=== PATIENT | female | born 1965 | race Caucasian/White ===

== ENCOUNTER → 2020-05-05 11:28 | Outpatient (CLI) | payer MEDICAID, SELFPAY ==
--- NOTE | 2020-05-05 11:30 | BI_ITS ---
MAMMOGRAPHY - BILATERAL SCREENING REASON FOR EXAM: Female, 54 years old. Routine annual screening examination. PERTINENT HISTORY: Non-contributory. TECHNIQUE: Digital bilateral breast jose miguel (3D mammographic acquisition) in the CC and MLO projections. 2-D mediolateral oblique (MLO) and craniocaudad (CC) views of both breasts were obtained. CAD: Full Field Digital Mammography with Computer Added Detection was performed. COMPARISON: None. Baseline examination. FINDINGS: Breast Composition: There are scattered areas of fibroglandular density. There are no dominant masses or suspicious calcifications. Small benign-appearing bilateral axillary lymph nodes. Scattered bilateral macrocalcifications. No other significant abnormalities are identified. BI/SCREEN MAMM (CAD) W/JOSE MIGUEL BILAT IMPRESSION: Negative screening mammogram. Yearly followup mammogram recommended. (A) ASSESSMENT CATEGORY: BIRADS Category 2: Benign. A letter regarding these results will be sent to the patient by the facility within 30 days. Approximately 10% of breast cancers are not detected by mammography. A normal mammogram should not delay biopsy of a clinically suspicious abnormality. [id number] Electronically Signed: Cezar Pickett, at 13:24 EDT , Service support ,
--- NOTE | 2020-05-05 11:33 | BD_ITS ---
STUDY: DUAL ENERGY X-RAY ABSORPTIOMETRY / DXA REASON FOR EXAM: Female, 54 years old. 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 COMPARISON: None. FINDINGS: Lumbar Spine (L1-L4): g/cm2 (1.262) / T-score (0.8) / Z-score (1.4) Findings are suggestive of normal bone density with a low fracture risk. Left Femur Total: g/cm2 (1.258) / T-score (2.0) / Z-score (2.5) Left Femoral Neck: g/cm2 (1.229) / T-score (1.4) / Z-score (2.3) Right Femur Total: g/cm2 (1.228) / T-score (1.8) / Z-score (2.3) Right Femoral Neck: g/cm2 (1.243) / T-score (1.5) / Z-score (2.4) BD/Dexa Bone Density Study IMPRESSION: The patient is considered normal as outlined below according to World K[employer] Organization (WHO) criteria with a low fracture risk. Reference Information: The T-score is the number of standard deviations above or below the standard which is normal for young adults at their peak bone mineral density. The World Health Organization (WHO) interprets the T-scores as follows: Above -1 Normal bone density Between -1 and -2.5 Osteopenia Equal to / or below -2.5 Osteoporosis As a practical clinical guideline, osteopenia may be graded as follows: Mild -1 through -1.5 Moderate -1.6 through -2.0 Severe -2.1 through -2.4 The Z-score is the number of standard deviations above or below age-matched controls. A Z-score of less than -1.5 would be considered abnormal. References: 1. NIH Osteoporosis and Related Bone Diseases http://www.osteo.org 2. International Society for Clinical Densitometry http://www.iscd.org 3. National Osteoporosis Foundation http://www.nof.org Electronically Signed: Cezar Pickett, at 15:29 EDT , Service support ,
[2020-05-05 14:30] LABS: Absolute Lymphocyte Count 2.32 X10^3/uL (0.83-4.51); Absolute Neutrophil Count 3.8 X10^3/uL (2.0-7.7); Basophil# 0.05 X10^3/uL; Basophil% 0.7 % (0-1); Eosinophil# 0.22 X10^3/uL; Eosinophils% 3.2 % (0-5); Hemoglobin 13.7 g/dL (12.0-15.0); Lymphocyte # 2.32 X10^3/ul (4.0); Lymphocyte % 33.2 % (19-41); Mean Corp Hgb Conc 31.9 g/dL (32-36); Mean Corpuscular Hgb 27.3 pg (27.0-32.0); Mean Corpuscular Volume 85.8 fL (81-99); Mean Platelet Vol. 10.1 fl (6.2-12.0); Monocyte# 0.61 X10^3/uL; Monocyte% 8.7 % (0-10); NRBC Flagged by Analyzer 0 % (0-5); Neutrophil # 3.76 X10^3/uL (2.7-7.7); Neutrophil % 53.9 % (47-70); Platelet Count 277 K/mm3 (150-450); RBC Distribution Width CV 14.3 % (11.6-14.6); RBC Distribution Width SD 44.3 fl (35.1-43.9); Red Blood Count 5.01 M/mm3 (4.2-5.4)
[2020-05-05 14:52] LABS: Hemoglobin A1c 5.6 % (3.8-5.6)
[2020-05-05 14:57] LABS: ALB/GLOB Ratio 0.9 RATIO (0.9-2.4); AST(SGOT) 22 U/L (15-37); Alanine Aminotransfer ALT/SGPT 21 U/L (13-56); Albumin, Serum 3.5 g/dL (3.2-5.0); Alkaline Phosphatase 70 U/L (45-117); Anion Gap 4 (5-15); BUN 6 mg/dL (7-18); BUN/Creat Ratio 7.5 RATIO (10-20); Calcium,Total 9.4 mg/dL (8.5-10.1); Chloride 108 mmol/L (98-107); Cholesterol 153 mg/dL (200); EST Glomerular Filtration Rate 80 mL/min (>60); Est Glom Filt Rate - Afr Amer 96 mL/min (>60); Globulin 3.9 g/dL (2.2-4.2); Glucose 84 mg/dL (74-106); High Density Lipoprotein 51 mg/dL; Potassium 3.9 mmol/L (3.5-5.1); Protein, Total 7.4 g/dL (6.4-8.2); Sodium Level 142 mmol/L (136-145); Thyroid Stim Hormone (TSH) 0.34 uIU/mL (0.358-3.74); Triglycerides 89 mg/dL; Very Low Density Lipoprotein 18 mg/dL (5-40)
[2020-05-11 16:44] LABS: HPV APTIMA, High Risk Negative (Negative)
== END ==
PROVIDERS: PCP Nurse Practitioner Primary Care; Referring Provider Obstetrics & Gynecology; Visit Provider Obstetrics & Gynecology
DX: Z13.820 Encounter for screening for osteoporosis (principal); Z12.31 Encounter for screening mammogram for malignant neoplasm of breast; Z12.4 Encounter for screening for malignant neoplasm of cervix; Z13.220 Encounter for screening for lipoid disorders; Z13.29 Encounter for screening for other suspected endocrine disorder; Z78.0 Asymptomatic menopausal state; R30.0 Dysuria
CPT/HCPCS: 36415; 77063; 77067; 77080; 80053; 80061; 83036; 84443; 85025; 87086; 87624; 88175; G0145

== ENCOUNTER 2021-03-09 13:35 | Emergency (ER) | payer MEDICAID, SELFPAY ==
[2020-05-05 13:07] VITALS: BMI 37.6
[2021-03-09] VITALS (7 sets, daily range): BP systolic 120–139; BP diastolic 83–99; PULSE 73–93; RESP 16–18; TEMP 36.6–36.7; O2SAT 98–99; BMI 39.6
--- NOTE | 2021-03-09 13:57 | EKG12_ITS ---
Test Reason : Blood Pressure : / mmHG Vent. Rate : 072 BPM Atrial Rate : 072 BPM P-R Int : 156 ms QRS Dur : 082 ms QT Int : 376 ms P-R-T Axes : 054 -06 029 degrees QTc Int : 411 ms Normal sinus rhythm Normal ECG Confirmed by LATRICE GUO, CHANDANA ([id number]), advertising editor SAMAN RAMESH ([id number]) on 03/14/2021 9:09:59 AM Referred By: SHERI Confirmed By:MARIA DEL CARMEN POLLARD MD
--- NOTE | 2021-03-09 14:13 | EX.ED.DYSGE1 ---
HPI History of Present Illness Chief Complaint: Shortness of Breath Detail of Chief Complaint: Syncope. Informant: patient and spouse/S.O. Onset/Context/Timing Onset: Today and Yesterday Context: Sudden Onset Timing: Intermittent Current Severity: Gone Maximum Severity: Mild Narrative Narrative: Middle-aged Christian female no significant past medical history. 4 prior C-sections. Denies any recent illness. She is on no medications. Patient states yesterday morning about half an hour after getting up she had a syncopal episode lasted briefly. No injury when she fell to the kitchen floor. She was drinking coffee at the time. She felt dizzy just prior to the event. Denies any headache or chest pain. States she has had some mild shortness of breath recently. No history of DVT or PE. No recent travel surgery or immobilization. She has had similar episodes in the past. Is never had it worked up. Cellulitis today she had episode that was similar but it was near syncope and she did not actually go unconscious. 42 she was sitting in a chair at that time. She had some mild loose stools last week but otherwise has not had any recent illness. Prior similar symptoms: Yes Recent Illness/Hospitalization: No PFSH PFSH no medical history Home Medications NK 05/05/20 [History Last Taken Unknown] Allergy/AdvReac Type Severity Reaction Status Date / Time No Known Allergies Allergy Verified 05/05/20 13:04 Family History Father Heart disease Mother Heart disease Surgical History S/P Social History Smoking Status: Never smoker alcohol intake: never substance use type: does not use caffeine: Yes what type of physical activity do you participate in: walking, aerobics and other details: stepper frequency: 5-6 times per week do you feel safe at home: Yes additional social history: - [place] ROS ROS ED ROS Narrative Denies recent illness except for mild loose stools last week. Review of Systems ROS Unobtainable: Denies due to encephalopathy Constitutional Constitutional ED: Denies chills or fever(s) Eyes Eyes: Denies change in vision ENT ENT ED: Denies ear pain or sore throat Cardiovascular Cardiovascular: Denies chest pain or palpitations Respiratory/Chest Respiratory/Chest: Reports dyspnea; Denies cough Gastrointestinal Gastrointestinal: Reports diarrhea; Denies abdominal pain, nausea or vomiting Genitourinary Genitourinary ED: Denies dysuria Musculoskeletal Musculoskeletal: Denies myalgias Integumentary Denies rash Neurologic Neurologic: Denies headache(s) Psychiatric Psychiatric: Denies depression Endocrine Endocrinology: Denies polyuria Allergic/Immunologic Allergic/Immunologic ED: Denies urticaria EXAM Physical Exam Narrative Exam Narrative: Middle-aged female no acute distress. Vital signs stable afebrile. Initial blood pressure 128/95. Heart rate 78. Pulse ox 90% on room air no signs hypoxia. H EENT exam unremarkable. Moist mucous membranes. No trauma. Neck nontender. Lungs clear to auscultation bilaterally. Heart regular rate and rhythm no murmur rate about 80. Chest were nontender. Abdomen soft nontender. Normal bowel sounds no peritoneal signs. Patient moving all 4 extremities. Neurovascularly intact. Nontender. No edema or cords. Back nontender. Neurologically she is awake and alert with no focal motor deficits. Fingertip to nose and [id number] within normal limits. NIH score 0. Const Vital Signs: 03/09/21 13:36 03/09/21 13:42 03/09/21 14:15 Temperature 97.9 F 97.9 F Temperature Source Oral Oral Pulse Rate 78 78 Pulse Rate [Lying] Pulse Rate [Sitting] Pulse Rate [Standing] Respiratory Rate 16 16 Respiratory Effort Respiratory Pattern Blood Pressure 128/95 H 128/95 H Blood Pressure [Lying] Blood Pressure [Sitting] Blood Pressure [Standing] Blood Pressure Mean 106 106 Blood Pressure Mean [Lying] Blood Pressure Mean [Sitting] Blood Pressure Mean [Standing] Pulse Ox 98 98 Oxygen Delivery Method Room Air Room Air Room Air 03/09/21 14:17 03/09/21 14:35 03/09/21 14:42 Temperature 97.9 F Temperature Source Oral Pulse Rate 73 73 Pulse Rate [Lying] Pulse Rate [Sitting] Pulse Rate [Standing] Respiratory Rate 18 18 Respiratory Effort Normal Respiratory Pattern Normal Blood Pressure 126/90 H 126/90 H Blood Pressure [Lying] Blood Pressure [Sitting] Blood Pressure [Standing] Blood Pressure Mean 102 102 Blood Pressure Mean [Lying] Blood Pressure Mean [Sitting] Blood Pressure Mean [Standing] Pulse Ox 99 99 Oxygen Delivery Method Room Air Room Air 03/09/21 15:27 03/09/21 15:33 Temperature 98.0 F Temperature Source Temporal Pulse Rate 73 Pulse Rate [Lying] 73 Pulse Rate [Sitting] 79 Pulse Rate [Standing] 93 Respiratory Rate 16 Respiratory Effort Respiratory Pattern Blood Pressure 134/99 H Blood Pressure [Lying] 129/92 H Blood Pressure [Sitting] 139/93 H Blood Pressure [Standing] 134/99 H Blood Pressure Mean 110 Blood Pressure Mean [Lying] 104 Blood Pressure Mean [Sitting] 108 Blood Pressure Mean [Standing] 110 Pulse Ox 99 Oxygen Delivery Method Room Air Positive well nourished and well developed; Negative for cachectic, contractures or unkempt General Appearance ED: well developed and NAD; Negative for unkempt, cachectic, contractures, cyanotic or diaphoretic Nutritional Appearance: Negative for cachectic HEENT Reports moist mucous membranes Negative for trauma or tenderness Eyes PERRL and EOMs intact bilaterally Neck no lymphadenopathy, supple and no JVD General: Negative for tenderness Chest Wall inspection of chest normal and palpation of chest normal Resp normal respiratory effort and clear to auscultation bilaterally Cardio regular rate, regular rhythm, S1 normal heart sound, S2 normal heart sound and no murmurs GI normal to inspection, nondistended, normoactive bowel sounds, non-tender, non-distended and no masses Inspection: Negative for abdominal distention Auscultation: normoactive bowel sounds Palpation: soft; Negative for tender, guarding or rebound tenderness present Back/Spine no CVA tenderness General Back: Negative for CVA tenderness Cervical Spine: Negative for cervical spine tenderness Thoracic Spine / Upper Back: Negative for thoracic spinal tenderness or paraspinal muscle tenderness Extremity normal to inspection General Extremety ED: Negative for edema or tenderness General Extremity: Negative for edema Neuro oriented x3 and CN's II-XII intact bilaterally Sensorium / Orientation: alert; Negative for orientation impaired, lethargic or stuporous Motor Exam: strength 5/5 throughout Psych mental status grossly normal Appearance: Negative for unkempt Skin no rashes or lesions noted and no wounds MDM MDM MDM Narrative Medical decision making narrative: Middle-aged female with a syncopal event yesterday that was brief. And a near syncopal event today. Exam normal. Vital signs normal. She has no cardiac history. Patient will undergo a cardiac work-up with orthostatic vital signs. Several repeat exams most recent one at 4:30 PM patient doing well. Exam unchanged.Several repeat exams most recent one at 4:30 PM patient doing well. Exam unchanged. Discussed all test results with patient and . They did not wish to be admitted to the hospital for observation for other causes of syncope. I think that is reasonable in light the patient's been on the playground monitor here for several hours and we have seen no significant rhythm issues. Lab Data Attestation: I reviewed the patient's lab results. Lab results narrative: Prescription for Zofran CBC unremarkable. White count of 6. Hemoglobin 14. Electrolytes unremarkable gap of 5. Creatinine 0.7. High-sensitivity troponin normal. Chest x-ray unremarkable. Covid negative.Orthostatic vital signs negative. Labs: Laboratory Results - last 24 hr 03/09/21 03/09/21 14:20 14:20 WBC 6.3 RBC 5.31 Hgb 14.6 Hct 45.5 MCV 85.7 MCH 27.5 MCHC 32.1 RDW Std Deviation 41.1 RDW Coeff of Gunner 13.2 Plt Count 258 MPV 9.3 Immature Gran % (Auto) 0.500 Neut % (Auto) 54.9 Lymph % (Auto) 27.4 [place] % (Auto) 14.6 H Eos % (Auto) 1.8 Baso % (Auto) 0.8 Absolute Neuts (auto) 3.5 Absolute Lymphs (auto) 1.72 Nucleated RBC % 0 Sodium 139 Potassium 4.1 Chloride 104 Carbon Dioxide 30.0 Anion Gap 5 BUN 6 L Creatinine 0.75 Estim Creat Clear Calc 121.75 Est GFR (MDRD) Af Amer 104 Est GFR (MDRD) Non-Af 86 BUN/Creatinine Ratio 8.0 L Glucose 83 Calcium 9.0 Troponin I High Sens < 3.0 L Radiography Chest X-Ray - ED: 1 View, Read by ED Physician, Heart, Lungs, Mediastinum, Bony Structures and No Acute Disease Diagnostic Testing: Radiology Impression Chest X-Ray 03/09/21 15:05 IMPRESSION: Normal x-ray examination of the chest. Electronically Signed: Cezar Pickett MD at 15:22 EDT , Service support , Rhythm Strip Rhythm Strip: Sinus Rhythm Rate: 72 Ectopy: None EKG Initial EKG: Attestation: I personally reviewed and interpreted this EKG as follows: Interpretation: Sinus Rhythm and No Acute Injury Pattern Comments: Normal sinus rhythm rate of 72 no acute signs of [place] or ischemia. Prior EKG tracings: available for review Prior: Unchanged Discharge Plan Triage Chief Complaint: Shortness of Breath ED Provider: Nicholas Reed Dx/Rx/DC Orders Clinical Impression: Syncope Instructions: Causes of Syncope Prescriptions: No Action NK RF: 0 Primary Care Provider: Ruby Justice NP Referrals: Ruby Justice NP, [employer] [Primary Care Provider] - As soon as possible Activity Restrictions/Additional Instructions: Plenty of fluids and rest. Follow-up with primary care physician. Your chest x-ray, EKG, Covid test, blood counts and electrolytes were all unremarkable today. Disposition Disposition: Home, Self Care
[2021-03-09 14:37] LABS: Absolute Lymphocyte Count 1.72 X10^3/uL (0.83-4.51); Absolute Neutrophil Count 3.5 X10^3/uL (2.0-7.7); Basophil# 0.05 X10^3/uL; Basophil% 0.8 % (0-1); Eosinophil# 0.11 X10^3/uL; Eosinophils% 1.8 % (0-5); Hematocrit 45.5 % (37-47); Hemoglobin 14.6 g/dL (12.0-15.0); Lymphocyte # 1.72 X10^3/ul (0.83-4.51); Lymphocyte % 27.4 % (19-41); Mean Corp Hgb Conc 32.1 g/dL (32-36); Mean Corpuscular Hgb 27.5 pg (27.0-32.0); Mean Corpuscular Volume 85.7 fL (81-99); Mean Platelet Vol. 9.3 fl (6.2-12.0); Monocyte# 0.92 X10^3/uL; Monocyte% 14.6 % (0-10); NRBC Flagged by Analyzer 0 % (0-5); Neutrophil # 3.45 X10^3/uL (2.7-7.7); Neutrophil % 54.9 % (47-70); Platelet Count 258 K/mm3 (150-450); RBC Distribution Width CV 13.2 % (11.6-14.6); RBC Distribution Width SD 41.1 fl (35.1-43.9); Red Blood Count 5.31 M/mm3 (4.2-5.4); White Blood Count 6.3 K/mm3 (4.4-11.0)
[2021-03-09 14:49] LABS: Anion Gap 5 (5-15); BUN 6 mg/dL (7-18); Chloride 104 mmol/L (98-107); Creatinine, Serum 0.75 mg/dL (0.55-1.02); EST Glomerular Filtration Rate 86 mL/min (>60); Est Glom Filt Rate - Afr Amer 104 mL/min (>60); Estimated Creatinine Clearance 121.75 ml/min; Glucose 83 mg/dL (74-106); Potassium 4.1 mmol/L (3.5-5.1); Sodium Level 139 mmol/L (136-145); Troponin-I HS < 3.0 pg/mL (3.0-53.7)
--- NOTE | 2021-03-09 15:05 | RAD_ITS ---
STUDY: X-RAY CHEST REASON FOR EXAM: Female, 55 years old. Shortness of breath and chills. Cough. TECHNIQUE: Single AP portable view of the chest. COMPARISON: None. FINDINGS: EKG electrodes are seen. The lungs are clear and expanded. There is no demonstrated pleural abnormality. Normal size heart. Normal mediastinum and jourdan. Normal visualized pulmonary arteries. Normal visualized aortic arch and descending thoracic aorta. There are diffuse degenerative changes of the visualized thoracic spine. Normal visualized ribs, clavicles, and shoulders. There is no demonstrated abnormality of the visualized soft tissue structures of the upper abdomen. RAD/Chest 1 View (Portable) IMPRESSION: Normal x-ray examination of the chest. Electronically Signed: Cezar Pickett MD at 15:22 EDT , Service support ,
== END 2021-03-09 16:57 | disposition home or self-care (01) ==
PROVIDERS: Emergency Provider Emergency Medicine; PCP Nurse Practitioner Primary Care
DX: R55 Syncope and collapse (principal)
CPT/HCPCS: 71045; 80048; 84484; 85025; 87426; 93005; 99285; A4216

== ENCOUNTER 2021-03-10 17:47 | Emergency (ER) | payer MEDICAID, SELFPAY ==
[2021-03-09 13:36] VITALS: BMI 39.6
[2021-03-10 17:48] VITALS: BP 125/80; PULSE 85; PULSE 88; RESP 16; TEMP 36.9; O2SAT 96; O2SAT 98; BMI 39.2
[2021-03-10 19:17] LABS: Bacteria 0 SEEN /hpf (None Seen); Mucous, Urine 0 SEEN /hpf (<or=2+); Red Blood Cells-Urine 0 SEEN /hpf (0-5)
[2021-03-10 19:22] LABS: Color, Urine Straw (Yellow); Glucose, Dipstick Normal (Normal); Ketone-Dipstick Negative (Negative); Leukocyte Esterase-Dipstick 25 /ul (Negative); Nitrite-Dipstick Negative (Negative); Occult Blood-Urine Negative /ul (Negative); Protein-Dipstick Negative (Negative); Urine Bilirubin Dipstick Negative (Negative); Urine Clarity Clear (Clear); Urine Urobilinogen Normal (Normal)
[2021-03-10 19:38] LABS: Squamous Epithelial Cells - UA 0-5 SEEN /hpf (5-10); White Blood Cells 0-5 SEEN /hpf (0-5)
[2021-03-10 19:49] VITALS: PULSE 82; RESP 16; O2SAT 98
[2021-03-10 19:59] VITALS: BP 110/82; PULSE 77; RESP 16; O2SAT 96
[2021-03-10 20:00] LABS: Absolute Lymphocyte Count 2.11 X10^3/uL (0.83-4.51); Absolute Neutrophil Count 2.1 X10^3/uL (2.0-7.7); Basophil# 0.04 X10^3/uL; Basophil% 0.8 % (0-1); Eosinophil# 0.26 X10^3/uL; Eosinophils% 4.9 % (0-5); Hematocrit 43.6 % (37-47); Lymphocyte # 2.11 X10^3/ul (0.83-4.51); Lymphocyte % 39.7 % (19-41); Mean Corp Hgb Conc 32.1 g/dL (32-36); Mean Corpuscular Hgb 27.5 pg (27.0-32.0); Mean Corpuscular Volume 85.7 fL (81-99); Mean Platelet Vol. 9.4 fl (6.2-12.0); Monocyte# 0.81 X10^3/uL; Monocyte% 15.2 % (0-10); NRBC Flagged by Analyzer 0 % (0-5); Neutrophil # 2.09 X10^3/uL (2.7-7.7); Neutrophil % 39.2 % (47-70); Platelet Count 233 K/mm3 (150-450); RBC Distribution Width SD 40.9 fl (35.1-43.9); Red Blood Count 5.09 M/mm3 (4.2-5.4); White Blood Count 5.3 K/mm3 (4.4-11.0)
[2021-03-10 20:13] LABS: D-Dimer Quantitative (DVT/PE) 0.62 FEU/ug/m (0.27-0.49)
--- NOTE | 2021-03-10 20:23 | CT_ITS ---
HISTORY: Trauma, syncope, head injury TECHNIQUE: Multiple axial images were obtained of the brain without intravenous contrast. A radiation dose optimization technique was used for this scan. IV Contrast dosage and agent: None. COMPARISON: None FINDINGS: # of images incl. paperwork: [id number] PARANASAL SINUSES AND MASTOID AIR CELLS: Clear. INTRACRANIAL HEMORRHAGE: None. BRAIN PARENCHYMA: No CT evidence of stroke. No intracranial masses. There is preservation of the guzman/white matter interface. Posterior fossa structures are unremarkable. CSF SPACES: Appropriate for age. There is no hydrocephalus. MASS EFFECT: None. CALVARIUM: Intact. CT/Brain/Head without Contrast IMPRESSION: No acute intracranial findings. Individualized dose optimization techniques were used for this CT. at 2139 Reported and signed by: Kin Torres MD Electronically Signed: Kin Torres MD at 21:38 EDT Tel , Service support ,
[2021-03-10 20:29] LABS: ALB/GLOB Ratio 0.8 RATIO (0.9-2.4); AST(SGOT) 21 U/L (15-37); Alanine Aminotransfer ALT/SGPT 22 U/L (13-56); Albumin, Serum 3.5 g/dL (3.2-5.0); Alkaline Phosphatase 78 U/L (45-117); Anion Gap 6 (5-15); BUN 8 mg/dL (7-18); BUN/Creat Ratio 9.8 RATIO (10-20); CPK Total, Creatine Kinase 201 U/L (26-192); Chloride 103 mmol/L (98-107); Creatinine, Serum 0.82 mg/dL (0.55-1.02); EST Glomerular Filtration Rate 77 mL/min (>60); Est Glom Filt Rate - Afr Amer 94 mL/min (>60); Estimated Creatinine Clearance 110.22 ml/min; Globulin 4.5 g/dL (2.2-4.2); Glucose 84 mg/dL (74-106); Potassium 3.8 mmol/L (3.5-5.1); Sodium Level 139 mmol/L (136-145); Troponin-I HS 12.1 pg/mL (3.0-53.7)
--- NOTE | 2021-03-10 21:00 | CT_ITS ---
HISTORY: syncope, elevated dimer EXAMINATION: CTA Chest WO/W Contrast Injection TECHNIQUE: Helically acquired images were obtained of the chest following IV contrast as per pulmonary angiogram protocol with 3D reconstructions. A radiation dose optimization technique was used for this scan. IV Contrast dosage and agent: 100mL [id number] COMPARISON: None FINDINGS: LUNGS, PLEURA AND LARGE AIRWAYS: Left lower lobe linear focus of atelectasis, fibrosis and/or consolidation. No mass or pleural effusion. No pneumothorax. THYROID: 2.7 cm nodule left lobe. PULMONARY ARTERIES: Normal in caliber. No pulmonary embolism. AORTA AND GREAT VESSELS: No aneurysm or dissection. HEART AND PERICARDIUM: Heart size is normal. No pericardial effusion. No signs of right heart strain. MEDIASTINUM AND MERLY: No mediastinal or hilar adenopathy. Esophagus is unremarkable. No hiatal hernia. UPPER ABDOMEN: No acute pathology. BONES: No acute or aggressive abnormality. CT/CTA Chest W/WO Contrast IMPRESSION: Negative CTA Chest. Left lower lobe linear focus of possible consolidation versus atelectasis and/or fibrosis. Recommend short-term follow-up for complete resolution. 7 cm nodule left lobe thyroid. Recommend routine thyroid ultrasound if not previously evaluated. Individualized dose optimization techniques were used for this CT. at 2150 Reported and signed by: Kin Torres MD Electronically Signed: Kin Torres MD at 21:49 EDT Tel , Service support ,
[2021-03-10] MEDS: 0.9% Normal Saline 1,000 ML 999 ML IV (21:08)
[2021-03-10 21:11] VITALS: PULSE 78; RESP 16; O2SAT 98
--- NOTE | 2021-03-10 22:07 | EDS_ITS ---
HPI History of Present Illness Chief Complaint: Syncope Informant: patient Narrative Narrative: Patient is a 55-year-old female who denies any significant past medical history present with recurrent episodes of syncope. Patient states 2 days ago she painted and yesterday felt like she was going to pass out but she sat down fairly quickly. This morning she had another syncopal episode. Patient states she bumped her chin on the counter and hit the back of her head. They called her PCP who recommend she come in to have a head CT. Patient was evaluated for the syncope 2 days ago and had a largely negative work-up. notes that her left eye seems to be drooping a little bit intermittently but not currently. Does not report any speech changes. Patient states she feels weak all over and has some myalgias. This was going on for the past few days. She notes that she is been feeling lightheaded and also gets a pressure in her head. She has an associated cough that is nonproductive. No chest pain. No nausea or vomiting. No change in her bowel habits. No fever or chills. Patient had a negative Covid antigen test yesterday. She is not had her Covid vaccine yet. No sick contacts. Patient is not on any medications. No other complaints or concerns at this time. PFSH [facility] Home Medications doxycycline hyclate 100 mg PO BID #14 cap 03/10/21 [Rx Last Taken Unknown] Allergy/AdvReac Type Severity Reaction Status Date / Time No Known Allergies Allergy Verified 05/05/20 13:04 Family History Father Heart disease Mother Heart disease Surgical History S/P Social History Smoking Status: Never smoker alcohol intake: never substance use type: does not use caffeine: Yes what type of physical activity do you participate in: walking, aerobics and other details: stepper frequency: 5-6 times per week do you feel safe at home: Yes additional social history: - Landon WILSON ROS ED Constitutional Constitutional ED: Reports other Details: Generalized malaise/weakness ; Denies chills or fever(s) Eyes Eyes: Denies blurry vision or change in vision ENT ENT ED: Denies ear pain or sore throat Cardiovascular Cardiovascular: Denies chest pain or palpitations Respiratory/Chest Respiratory/Chest: Reports cough; Denies dyspnea, dyspnea on exertion or sputum Gastrointestinal Gastrointestinal: Denies abdominal pain, diarrhea or vomiting Genitourinary Genitourinary ED: Reports urinary frequency; Denies dysuria or hematuria Musculoskeletal Musculoskeletal: Reports myalgias; Denies arthralgias, back pain or neck pain Integumentary Denies rash Neurologic Neurologic: Reports headache(s) and weakness; Denies paresthesias Psychiatric Psychiatric: Denies anxiety or depression EXAM Physical Exam Const Vital Signs: 03/10/21 17:48 03/10/21 17:59 03/10/21 19:49 Temperature 98.4 F Temperature Source Temporal Pulse Rate 85 82 Respiratory Rate 16 16 Respiratory Effort Normal Respiratory Pattern Normal Blood Pressure 125/80 H Blood Pressure Mean 95 Pulse Ox 98 98 Oxygen Delivery Method Room Air Room Air 03/10/21 19:59 03/10/21 21:11 Temperature Temperature Source Pulse Rate 77 78 Respiratory Rate 16 16 Respiratory Effort Respiratory Pattern Blood Pressure 110/82 H Blood Pressure Mean 91 Pulse Ox 96 98 Oxygen Delivery Method Room Air Room Air Positive well nourished and well developed General Appearance ED: well developed HEENT Reports TM's clear and moist mucous membranes Negative for trauma Tympanic Membrane ED: Yes TM's clear Eyes PERRL and EOMs intact bilaterally Neck no lymphadenopathy, supple and no JVD Chest Wall inspection of chest normal Resp normal respiratory effort and clear to auscultation bilaterally Cardio regular rate, regular rhythm and no murmurs GI normal to inspection, nondistended, normoactive bowel sounds and non-tender Extremity normal to inspection General Extremety ED: Negative for edema or tenderness General Extremity: Negative for edema Neuro oriented x3, CN's II-XII intact bilaterally and no sensory deficits noted Sensorium / Orientation: alert Motor Exam: strength 5/5 throughout Psych mental status grossly normal Skin no rashes or lesions noted MDM MDM MDM Narrative Medical decision making narrative: Patient evaluated for recurrent episode of syncope. She appears nontoxic in no acute distress. Her vital signs are normal. Patient normal orthostatics yesterday and a normal work-up yesterday. CBC is normal. No leukocytosis. Patient does have an elevated D-dimer of 0.62. CTA is obtained. CT head without contrast is also obtained. Urinalysis is not consistent with infection. CMP and high sensitive troponin are grossly unremarkable. Patient has a mild elevation of her CPK at 201. Patient is given a liter of IV fluid. CTA of the chest does not show any PE but does show thyroid nodule as well as a questionable infiltrate versus fibrosis versus atelectasis of the left lung. Given that patient is been feeling unwell for the past 2 days and has a cough she will be treated empirically. Patient is ordered to 48-hour Holter monitor she continues have episodes of syncope. I am not sure if this pneumonia adequately explains it. She does not appear to have any cardiac arrhythmia while in the emergency room. Patient be discharged home with outpatient follow-up. Patient and are agreeable with this plan of care. Patient is given first dose of doxycycline in the emergency room. Lab Data Labs: Laboratory Results - last 24 hr 03/10/21 03/10/21 03/10/21 18:45 19:45 19:45 WBC 5.3 RBC 5.09 Hgb 14.0 Hct 43.6 MCV 85.7 MCH 27.5 MCHC 32.1 RDW Std Deviation 40.9 RDW Coeff of Gunner 13.0 Plt Count 233 MPV 9.4 Immature Gran % (Auto) 0.200 Neut % (Auto) 39.2 L Lymph % (Auto) 39.7 Josephine % (Auto) 15.2 H Eos % (Auto) 4.9 Baso % (Auto) 0.8 Absolute Neuts (auto) 2.1 Absolute Lymphs (auto) 2.11 Nucleated RBC % 0 D-Dimer Quant (PE/DVT) 0.62 H* Sodium Potassium Chloride Carbon Dioxide Anion Gap BUN Creatinine Estim Creat Clear Calc Est GFR (MDRD) Af Amer Est GFR (MDRD) Non-Af BUN/Creatinine Ratio Glucose Calcium Total Bilirubin AST ALT Alkaline Phosphatase Total Creatine Kinase Troponin I High Sens Total Protein Albumin Globulin Albumin/Globulin Ratio Urine Color Straw Urine Clarity Clear Urine pH 7.0 Ur Specific [place] 1.010 Urine Protein Negative Urine Glucose (UA) Normal Urine Ketones Negative Urine Occult Blood Negative Urine Nitrite Negative Urine Bilirubin Negative Urine Urobilinogen Normal Ur Leukocyte Esterase 25 H Urine RBC 0 SEEN Urine WBC 0-5 SEEN Ur Squamous Epith Cells 0-5 SEEN Urine Bacteria 0 SEEN Urine Mucus 0 SEEN 03/10/21 19:45 WBC RBC Hgb Hct MCV MCH MCHC RDW Std Deviation RDW Coeff of Gunner Plt Count MPV Immature Gran % (Auto) Neut % (Auto) Lymph % (Auto) Josephine % (Auto) Eos % (Auto) Baso % (Auto) Absolute Neuts (auto) Absolute Lymphs (auto) Nucleated RBC % D-Dimer Quant (PE/DVT) Sodium 139 Potassium 3.8 Chloride 103 Carbon Dioxide 30.0 Anion Gap 6 BUN 8 Creatinine 0.82 Estim Creat Clear Calc 110.22 Est GFR (MDRD) Af Amer 94 Est GFR (MDRD) Non-Af 77 BUN/Creatinine Ratio 9.8 L Glucose 84 Calcium 9.0 Total Bilirubin 0.50 AST 21 ALT 22 Alkaline Phosphatase 78 Total Creatine Kinase 201 H Troponin I High Sens 12.1 Total Protein 8.0 Albumin 3.5 Globulin 4.5 H Albumin/Globulin Ratio 0.8 L Urine Color Urine Clarity Urine pH Ur Specific [place] Urine Protein Urine Glucose (UA) Urine Ketones Urine Occult Blood Urine Nitrite Urine Bilirubin Urine Urobilinogen Ur Leukocyte Esterase Urine RBC Urine WBC Ur Squamous Epith Cells Urine Bacteria Urine Mucus Radiography Chest X-Ray - ED: 1 View, Read by ED Physician, Read by Radiologist, Normal and No Acute Disease Diagnostic Testing: Radiology Impression Brain CT 03/10/21 20:23 IMPRESSION: No acute intracranial findings. Individualized dose optimization techniques were used for this CT. at 2130 Reported and signed by: Kin Torres MD Electronically Signed: Kin Torres MD at 21:38 EDT Tel , Service support , Chest CTA 03/10/21 21:00 IMPRESSION: Negative CTA Chest. Left lower lobe linear focus of possible consolidation versus atelectasis and/or fibrosis. Recommend short-term follow-up for complete resolution. 7 cm nodule left lobe thyroid. Recommend routine thyroid ultrasound if not previously evaluated. Individualized dose optimization techniques were used for this CT. at 2150 Reported and signed by: Kin Torres MD Electronically Signed: Kin Torres MD at 21:49 EDT Tel , Service support , Discharge Plan Triage Chief Complaint: Syncope ED Provider: Olive Britton Dx/Rx/DC Orders Clinical Impression: Syncope, Pneumonia involving left lung, Closed head injury Instructions: ED Head Injury (Adult), ED Holter Monitor, ED Pneumonia (Adult), ED Fainting, Uncertain Cause Prescriptions: New doxycycline hyclate 100 mg capsule 100 mg PO BID Qty: 14 RF: 0 Primary Care Provider: Thania Castrejon Referrals: Thania Castrejon, [employer] [Primary Care Provider] - Disposition Disposition: Home, Self Care
[2021-03-10] MEDS: Doxycycline 100 MG CAPSULE PO (22:24)
== END 2021-03-10 23:10 | disposition home or self-care (01) ==
PROVIDERS: Emergency Provider Emergency Medicine; PCP Nurse Practitioner Family
DX: R55 Syncope and collapse (principal); J18.9 Pneumonia, unspecified organism; S09.90XA Unspecified injury of head, initial encounter; X58.XXXA Exposure to other specified factors, initial encounter; Y93.89 Activity, other specified; Y92.9 Unspecified place or not applicable; Y99.9 Unspecified external cause status
CPT/HCPCS: 70450; 71275; 80053; 81001; 82550; 84484; 85025; 85379; 96360; J7030; Q9967; A4216

== ENCOUNTER → 2021-03-10 22:47 | Outpatient (CLI) | payer MEDICAID, SELFPAY ==
[2021-03-10 17:48] VITALS: BMI 39.2
== END ==
PROVIDERS: PCP Nurse Practitioner Family; Visit Provider Emergency Medicine
DX: R55 Syncope and collapse (principal); J18.9 Pneumonia, unspecified organism; S09.90XA Unspecified injury of head, initial encounter; X58.XXXA Exposure to other specified factors, initial encounter; Y93.89 Activity, other specified; Y92.9 Unspecified place or not applicable; Y99.9 Unspecified external cause status
CPT/HCPCS: 70450; 71275; 80053; 81001; 82550; 84484; 85025; 85379; 93225; 93226; 96360; 99283; J7030; Q9967; A4216

== ENCOUNTER 2021-03-18 19:23 | Emergency (ER) | payer MEDICAID, SELFPAY ==
[2021-03-18 19:24] VITALS: BP 118/90; PULSE 78; RESP 13; TEMP 36.8; O2SAT 96; BMI 44.3
--- NOTE | 2021-03-18 19:33 | EKG12_ITS ---
Test Reason : DYSRHYTHMIA Blood Pressure : / mmHG Vent. Rate : 075 BPM Atrial Rate : 075 BPM P-R Int : 176 ms QRS Dur : 082 ms QT Int : 360 ms P-R-T Axes : 052 -03 023 degrees QTc Int : 402 ms Normal sinus rhythm Normal ECG Confirmed by KHUSHBU GUO, AYDEN ([id number]), graphic editor SAMAN RAMESH ([id number]) on 03/23/2021 9:22:10 AM Referred By: ELVER Confirmed By:AYDEN RÍOS MD
--- NOTE | 2021-03-18 19:40 | EDS_ITS ---
HPI History of Present Illness Chief Complaint: Syncope Informant: patient and spouse/S.O. Onset/Context/Timing Onset: Today Current Severity: Gone Maximum Severity: Moderate Narrative Narrative: 55-year-old female who is been worked up and being worked up for syncopal episodes. 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 She has been admitted at [facility] recently. I do not think they have a specific diagnosis yet for syncopal events. She had a syncopal event today at home. states she lost consciousness for 1 to 2 minutes. Prior similar symptoms: Yes Recent Illness/Hospitalization: Yes PFSH PFSH Home Medications NK 03/18/21 [History Last Taken Unknown] Allergy/AdvReac Type Severity Reaction Status Date / Time No Known Allergies Allergy Verified 05/05/20 13:04 Family History Father Heart disease Mother Heart disease Surgical History S/P Social History Smoking Status: Never smoker alcohol intake: never substance use type: does not use caffeine: Yes what type of physical activity do you participate in: walking, aerobics and other details: stepper frequency: 5-6 times per week do you feel safe at home: Yes additional social history: - Landon KATIE ROS ED ROS Narrative Syncopal episodes but no recent illness. Review of Systems ROS Unobtainable: Denies due to encephalopathy Constitutional Constitutional ED: Denies chills or fever(s) Eyes Eyes: Denies blurry vision or change in vision ENT ENT ED: Denies ear pain or sore throat Cardiovascular Cardiovascular: Reports palpitations and racing heartbeat Respiratory/Chest Respiratory/Chest: Denies dyspnea Gastrointestinal Gastrointestinal: Denies abdominal pain or nausea Genitourinary Genitourinary ED: Denies dysuria or hematuria Musculoskeletal Musculoskeletal: Denies arthralgias or myalgias Integumentary Denies rash Neurologic Neurologic: Denies headache(s) Psychiatric Psychiatric: Denies depression Endocrine Endocrinology: Denies polyuria Allergic/Immunologic Allergic/Immunologic ED: Denies urticaria EXAM Physical Exam Narrative Exam Narrative: Patient in no acute distress. Vital signs stable afebrile. Current heart rate 78. Pulse ox 96% room air no signs hypoxia. Const Vital Signs: 03/18/21 19:24 03/18/21 19:50 03/18/21 20:39 Temperature 98.2 F Temperature Source Oral Pulse Rate 78 82 Pulse Rate [Lying] 74 Pulse Rate [Sitting] 88 Respiratory Rate 13 18 Respiratory Effort Normal Respiratory Pattern Normal Blood Pressure 118/90 H 121/88 H Blood Pressure [Lying] 106/73 Blood Pressure [Sitting] 115/98 H Blood Pressure Mean 99 99 Blood Pressure Mean [Lying] 84 Blood Pressure Mean [Sitting] 103 Pulse Ox 96 99 Oxygen Delivery Method Room Air Room Air Positive well nourished and well developed General Appearance ED: well developed and NAD HEENT Reports moist mucous membranes Negative for trauma or tenderness Eyes PERRL and EOMs intact bilaterally Neck no lymphadenopathy, supple and no JVD General: Negative for tenderness Chest Wall inspection of chest normal and palpation of chest normal Resp normal respiratory effort and clear to auscultation bilaterally Cardio regular rate, regular rhythm, S1 normal heart sound, S2 normal heart sound and no murmurs GI normal to inspection, nondistended, normoactive bowel sounds, non-tender and non-distended Palpation: soft Back/Spine no CVA tenderness Extremity normal to inspection General Extremety ED: Negative for edema or tenderness General Extremity: Negative for edema Neuro oriented x3 and CN's II-XII intact bilaterally Sensorium / Orientation: alert; Negative for orientation impaired, lethargic or stuporous Motor Exam: strength 5/5 throughout Psych mental status grossly normal Skin no rashes or lesions noted and no wounds MDM MDM MDM Narrative Medical decision making narrative: Patient with syncopal episodes and has had evaluations both here and at [facility] as an inpatient. Had a recurrent syncopal episode tonight. On repeat exam at 9:12 PM patient is doing well. She is in no distress. Her vital signs are stable. I discussed her normal test results with her tonight. The concerning factor is her recent outpatient satellite project site monitor which showed what appears to be SVT and short runs of even V. tach. She is having syncopal episodes which may be caused by these cardiac dysrhythmias. She has been worked up recently at [facility] [place] they can do the procedure in case she needs a pacemaker pacemaker defibrillator discussed with him transfer. Lab Data Attestation: I reviewed the patient's lab results. Lab results narrative: CBC shows a white count of 7. Hemoglobin 13.5. Electrolytes normal gap 6. Normal creatinine. Normal troponin. Labs: Laboratory Results - last 24 hr 03/18/21 03/18/21 19:05 19:05 WBC 7.0 RBC 4.99 Hgb 13.5 Hct 41.5 MCV 83.2 MCH 27.1 MCHC 32.5 RDW Std Deviation 39.0 RDW Coeff of Gunner 13.0 Plt Count 314 MPV 9.5 Immature Gran % (Auto) 0.300 Neut % (Auto) 44.8 L Lymph % (Auto) 40.5 [place] % (Auto) 10.5 H Eos % (Auto) 3.0 Baso % (Auto) 0.9 Absolute Neuts (auto) 3.2 Absolute Lymphs (auto) 2.85 Nucleated RBC % 0 Sodium 140 Potassium 3.9 Chloride 104 Carbon Dioxide 30.0 Anion Gap 6 BUN 12 Creatinine 0.72 Estim Creat Clear Calc 141.94 Est GFR (MDRD) Af Amer 109 Est GFR (MDRD) Non-Af 90 BUN/Creatinine Ratio 16.7 Glucose 86 Calcium 9.3 Troponin I High Sens 4.0 Radiography Chest X-Ray - ED: 1 View, Read by ED Physician, Read by Radiologist, Unchanged, Normal, Heart, Lungs, Mediastinum, Bony Structures and No Acute Disease Diagnostic Testing: Radiology Impression Chest X-Ray 03/18/21 19:45 IMPRESSION: No acute radiographic abnormalities. Electronically Signed: Anmol Jung MD at 20:02 EDT Tel , Service support , Portable 1 view chest x-ray shows no acute abnormality. Rhythm Strip Rhythm Strip: Sinus Rhythm Rate: 75 Ectopy: None EKG Initial EKG: Attestation: I personally reviewed and interpreted this EKG as follows: Interpretation: Sinus Rhythm Comments: Normal sinus rhythm rate of 75 no acute signs of [place], ischemia or dysrhythmia. Normal EKG. Prior EKG tracings: not available for review Discharge Plan Triage Chief Complaint: Syncope ED Provider: Nicholas Reed Dx/Rx/DC Orders Clinical Impression: Syncope, History of PSVT (paroxysmal supraventricular tachycardia), History of ventricular tachycardia Prescriptions: No Action NK RF: 0 Primary Care Provider: Thania Castrejon Referrals: Thania Castrejon, [employer] [Primary Care Provider] - Disposition Disposition: Acute Care Hospital
--- NOTE | 2021-03-18 19:45 | RAD_ITS ---
INDICATION: chest pain EXAMINATION/TECHNIQUE: X-RAY - XR Chest 1 View COMPARISON: 03/09/2021. FINDINGS: The lungs are clear. The cardiomediastinal silhouette is unremarkable. No pleural effusion or pneumothorax. No acute osseous abnormalities. RAD/Chest 1 View (Portable) IMPRESSION: No acute radiographic abnormalities. Electronically Signed: Anmol Jung MD at 20:02 EDT Tel , Service support ,
[2021-03-18 19:50] VITALS: BP 121/88; PULSE 82; RESP 18; O2SAT 99
[2021-03-18 20:18] LABS: Absolute Lymphocyte Count 2.85 X10^3/uL (0.83-4.51); Absolute Neutrophil Count 3.2 X10^3/uL (2.0-7.7); Basophil# 0.06 X10^3/uL; Basophil% 0.9 % (0-1); Eosinophil# 0.21 X10^3/uL; Hematocrit 41.5 % (37-47); Hemoglobin 13.5 g/dL (12.0-15.0); Lymphocyte # 2.85 X10^3/ul (0.83-4.51); Lymphocyte % 40.5 % (19-41); Mean Corp Hgb Conc 32.5 g/dL (32-36); Mean Corpuscular Hgb 27.1 pg (27.0-32.0); Mean Corpuscular Volume 83.2 fL (81-99); Mean Platelet Vol. 9.5 fl (6.2-12.0); Monocyte# 0.74 X10^3/uL; Monocyte% 10.5 % (0-10); NRBC Flagged by Analyzer 0 % (0-5); Neutrophil # 3.16 X10^3/uL (2.7-7.7); Neutrophil % 44.8 % (47-70); Platelet Count 314 K/mm3 (150-450); Red Blood Count 4.99 M/mm3 (4.2-5.4)
[2021-03-18 20:32] LABS: Anion Gap 6 (5-15); BUN 12 mg/dL (7-18); BUN/Creat Ratio 16.7 RATIO (10-20); Calcium,Total 9.3 mg/dL (8.5-10.1); Chloride 104 mmol/L (98-107); Creatinine, Serum 0.72 mg/dL (0.55-1.02); EST Glomerular Filtration Rate 90 mL/min (>60); Est Glom Filt Rate - Afr Amer 109 mL/min (>60); Estimated Creatinine Clearance 141.94 ml/min; Glucose 86 mg/dL (74-106); Potassium 3.9 mmol/L (3.5-5.1); Sodium Level 140 mmol/L (136-145)
[2021-03-18 20:39] VITALS: BP 106/73; BP 115/98; PULSE 74; PULSE 88
[2021-03-18 21:29] VITALS: BP 98/60; PULSE 69; RESP 17; O2SAT 96
[2021-03-18] MEDS: Acetaminophen 500 MG Tablet 1000 MG PO (22:43)
== END 2021-03-18 23:46 | disposition short-term general hospital (02) ==
PROVIDERS: Emergency Provider Emergency Medicine; PCP Nurse Practitioner Family
DX: R55 Syncope and collapse (principal); I47.1 Supraventricular tachycardia; I47.2 Ventricular tachycardia
CPT/HCPCS: 71045; 80048; 84484; 85025; 87426; 93005; 99285

== ENCOUNTER 2021-03-28 20:14 | Observation (INO) | payer MEDICAID, SELFPAY ==
[2021-03-23 11:27] VITALS: BMI 42.9
[2021-03-28] VITALS (10 sets, daily range): BP systolic 93–125; BP diastolic 63–95; PULSE 75–141; RESP 15–24; TEMP 35.9–36.4; O2SAT 96–100; BMI 48.6; BMI 44.0
--- NOTE | 2021-03-28 20:30 | EKG12_ITS ---
Test Reason : REPEAT CP Blood Pressure : / mmHG Vent. Rate : 100 BPM Atrial Rate : 096 BPM P-R Int : 000 ms QRS Dur : 076 ms QT Int : 312 ms P-R-T Axes : 000 023 033 degrees QTc Int : 402 ms Sinus vs Ectopic Atrial Rhythm with PAC's Abnormal ECG Confirmed by KHUSHBU GUO, AYDEN ([id number]), medical editor SAMAN RAMESH ([id number]) on 03/30/2021 10:06:48 AM Referred By: CARA Confirmed By:AYDEN RÍOS MD
[2021-03-28] MEDS: 0.9% Normal Saline 1,000 ML 1000 ML IV (20:37)
[2021-03-28] MEDS: dilTIAZem 25 MG/5 ML Vial 10 MG IV BOLUS (20:37)
--- NOTE | 2021-03-28 20:39 | RAD_ITS ---
STUDY: X-RAY CHEST REASON FOR EXAM: Female, 55 years old. chest pain TECHNIQUE: Frontal portable view of the chest COMPARISON: 18 March 2021 FINDINGS: The lungs are clear and expanded. There is no demonstrated pleural abnormality. Normal size heart. Normal mediastinum and jourdan. Normal visualized pulmonary arteries. Normal visualized aortic arch and descending thoracic aorta. Normal visualized thoracic spine. Normal visualized ribs, clavicles, and shoulders. There is no demonstrated abnormality of the visualized soft tissue structures of the upper abdomen. RAD/Chest 1 View (Portable) IMPRESSION: Normal x-ray examination of the chest. Electronically Signed: Suzanne Ratliff MD at 20:55 EDT Tel , Service support ,
--- NOTE | 2021-03-28 20:40 | EDS_ITS ---
HPI History of Present Illness Chief Complaint: Chest Pain Informant: patient Narrative Narrative: Patient is a 55-year-old female who presents to the emergency department for chest pain, heart palpitations. Patient is currently wearing a Holter monitor. She has been following with the [employer] labor and employment paralegal after syncopal episodes. She has a documented history of SVT. They were considering placing a pacemaker but ended up not doing this until the results of the electronic device monitor returned. She states that this has been a daily occurrence over the past few weeks. Today she was doing well until the past few hours her symptoms returned. She called the electronic device monitor company and they told her to go to the emergency department. She has not tried taking anything for this. She does feel short of breath when the episode gets bad. The pain is burning over the left chest wall. No radiation. She denies any history of heart attacks, strokes or DVT/PE. No recent illness including cough, cold, congestion. No leg swelling or calf pain. [facility] Medical History Premature atrial contraction Premature ventricular contraction Thyroid nodule Home Medications Lactobacillus acidophilus 1.5 mg (250 million cell) capsule 100 mmu cells PO DAILY 03/23/21 [History Last Taken Unknown] acetaminophen 325 mg tablet 325 mg PO Q4H PRN tab 03/23/21 [History Last Taken Unknown] aspirin 81 mg tablet,delayed release 81 mg PO DAILY 03/23/21 [History Last Taken Unknown] cholecalciferol (vitamin D3) 50 mcg (2,000 unit) capsule 50 mcg PO DAILY 03/23/21 [History Last Taken Unknown] fludrocortisone 0.1 mg tablet 0.1 mg PO DAILY tab 03/23/21 [History Last Taken Unknown] ibuprofen 200 mg tablet 400 mg PO Q4H PRN tab 03/23/21 [History Last Taken Unknown] Allergy/AdvReac Type Severity Reaction Status Date / Time No Known Allergies Allergy Verified 03/23/21 11:31 Family History Father Heart disease Mother Heart disease Surgical History S/P Social History Smoking Status: Never smoker alcohol intake: never substance use type: does not use caffeine: Yes what type of physical activity do you participate in: walking, aerobics and other details: stepper frequency: 5-6 times per week do you feel safe at home: Yes additional social history: - Landon WILSON ROS ED Constitutional Constitutional ED: Denies chills or fever(s) Eyes Eyes: Denies change in vision ENT ENT ED: Denies epistaxis or rhinorrhea Cardiovascular Cardiovascular: Reports chest pain, palpitations and racing heartbeat Respiratory/Chest Respiratory/Chest: Reports dyspnea; Denies cough Gastrointestinal Gastrointestinal: Denies abdominal pain, diarrhea, nausea or vomiting Genitourinary Genitourinary ED: Denies dysuria, hematuria or urinary frequency Musculoskeletal Musculoskeletal: Denies back pain or neck pain Integumentary Denies rash Neurologic Neurologic: Denies dizziness, headache(s) or weakness EXAM Physical Exam Const Vital Signs: 03/28/21 20:15 03/28/21 20:20 03/28/21 20:50 Temperature 96.8 F L Temperature Source Temporal Pulse Rate 141 H 85 Respiratory Rate 24 H 20 H Respiratory Effort Normal Non-Labored Blood Pressure 124/95 H 95/85 H Blood Pressure Mean 104 88 Pulse Ox 99 100 Oxygen Delivery Method Room Air Room Air Oxygen Flow Rate (L/min) 03/28/21 21:12 03/28/21 21:44 Temperature Temperature Source Pulse Rate 94 Respiratory Rate 15 Respiratory Effort Blood Pressure 93/72 Blood Pressure Mean 79 Pulse Ox 100 100 Oxygen Delivery Method Room Air Nasal Cannula Oxygen Flow Rate (L/min) 2 Positive well nourished and well developed General Appearance ED: well developed and NAD HEENT Reports normocephalic, head/scalp atraumatic and moist mucous membranes Eyes PERRL and EOMs intact bilaterally Neck supple Resp normal respiratory effort and clear to auscultation bilaterally Auscultation: Negative for rales, rhonchi or wheezes Cardio no murmurs Rate: tachycardic Rhythm: abnormal rhythm GI normal to inspection, nondistended, normoactive bowel sounds and non-tender Palpation: soft; Negative for guarding or rebound tenderness present Extremity normal to inspection General Extremety ED: Negative for edema or tenderness General Extremity: Negative for edema Neuro Sensorium / Orientation: alert Motor Exam: strength 5/5 throughout Psych mental status grossly normal Skin no rashes or lesions noted MDM MDM MDM Narrative Medical decision making narrative: Patient presents the ED for burning chest pain, palpitations. On arrival to the emergency department her heart rate is in the 140s and irregular. It does get as high as 180s. After single dose of IV Cardizem her heart rate did come down to the 80s and 90s. She is remained in atrial fibrillation. Her lab work did not reveal any significant acute abnormality. I did speak with the on-call labor and employment paralegal, Dr. Tejada. He recommended that the patient be sent home and follow-up tomorrow. Whenever I went to discharge the patient her heart rate jumped to 180s again became very symptomatic. She has been fluctuating with her heart rate of one since. This time given her tachycardia and likely needing IV rate control she will be admitted to the hospital overnight. She is agreeable this plan. Lab Data Labs: Laboratory Results - last 24 hr 03/28/21 03/28/21 20:20 20:20 WBC 8.0 RBC 4.95 Hgb 13.5 Hct 42.5 MCV 85.9 MCH 27.3 MCHC 31.8 L RDW Std Deviation 41.9 RDW Coeff of Gunner 13.4 Plt Count 300 MPV 10.9 Immature Gran % (Auto) 0.300 Neut % (Auto) 47.8 Lymph % (Auto) 39.0 [place] % (Auto) 8.6 Eos % (Auto) 3.5 Baso % (Auto) 0.8 Absolute Neuts (auto) 3.8 Absolute Lymphs (auto) 3.12 Nucleated RBC % 0 Sodium 141 Potassium 4.6 Chloride 107 Carbon Dioxide 30.0 Anion Gap 4 L BUN 10 Creatinine 0.90 Estim Creat Clear Calc 120.51 Est GFR (MDRD) Af Amer 84 Est GFR (MDRD) Non-Af 69 BUN/Creatinine Ratio 11.0 Glucose 107 H Calcium 9.0 Magnesium 2.1 Troponin I High Sens 3.5 TSH 1.65 Radiography Diagnostic Testing: Radiology Impression Chest X-Ray 03/28/21 20:39 IMPRESSION: Normal x-ray examination of the chest. Electronically Signed: Suzanne Ratliff MD at 20:55 EDT Tel , Service support , EKG Initial EKG: Attestation: I personally reviewed and interpreted this EKG as follows: (Rate of 146 bpm in irregularly irregular rhythm. Normal intervals. Normal axis. No significant ST elevations or depressions. No T wave abnormalities.) Discharge Plan Triage Chief Complaint: Chest Pain ED Provider: River Judge Dx/Rx/DC Orders Clinical Impression: Atrial fibrillation with RVR, Heart palpitations Prescriptions: No Action acetaminophen 325 mg tablet 325 mg PO Q4H PRN (Reason: Pain) RF: 0 aspirin [Adult Low Dose Aspirin] 81 mg tablet,delayed release (DR/EC) 81 mg PO DAILY RF: 0 cholecalciferol (vitamin D3) 50 mcg (2,000 unit) capsule 50 mcg PO DAILY RF: 0 ibuprofen [Advil] 200 mg tablet 400 mg PO Q4H PRN (Reason: Pain) RF: 0 Lactobacillus acidophilus 1.5 mg (250 million cell) capsule 100 mmu cells PO DAILY RF: 0 fludrocortisone 0.1 mg tablet 0.1 mg PO DAILY RF: 0 Primary Care Provider: Thania Castrejon Referrals: Thania Castrejon, [facility] [Primary Care Provider] - Disposition Disposition: Acute Care Hospital [facility]
[2021-03-28 20:44] LABS: Absolute Lymphocyte Count 3.12 X10^3/uL (0.83-4.51); Absolute Neutrophil Count 3.8 X10^3/uL (2.0-7.7); Basophil# 0.06 X10^3/uL; Basophil% 0.8 % (0-1); Eosinophil# 0.28 X10^3/uL; Eosinophils% 3.5 % (0-5); Hematocrit 42.5 % (37-47); Hemoglobin 13.5 g/dL (12.0-15.0); Lymphocyte # 3.12 X10^3/ul (0.83-4.51); Mean Corp Hgb Conc 31.8 g/dL (32-36); Mean Corpuscular Hgb 27.3 pg (27.0-32.0); Mean Corpuscular Volume 85.9 fL (81-99); Mean Platelet Vol. 10.9 fl (6.2-12.0); Monocyte# 0.69 X10^3/uL; Monocyte% 8.6 % (0-10); NRBC Flagged by Analyzer 0 % (0-5); Neutrophil # 3.83 X10^3/uL (2.7-7.7); Neutrophil % 47.8 % (47-70); Platelet Count 300 K/mm3 (150-450); RBC Distribution Width CV 13.4 % (11.6-14.6); RBC Distribution Width SD 41.9 fl (35.1-43.9); Red Blood Count 4.95 M/mm3 (4.2-5.4)
[2021-03-28 21:28] LABS: Anion Gap 4 (5-15); BUN 10 mg/dL (7-18); Chloride 107 mmol/L (98-107); EST Glomerular Filtration Rate 69 mL/min (>60); Est Glom Filt Rate - Afr Amer 84 mL/min (>60); Estimated Creatinine Clearance 120.51 ml/min; Glucose 107 mg/dL (74-106); Magnesium 2.1 mg/dL (1.6-2.6); Potassium 4.6 mmol/L (3.5-5.1); Sodium Level 141 mmol/L (136-145); Thyroid Stim Hormone (TSH) 1.65 uIU/mL (0.358-3.74); Troponin-I HS 3.5 pg/mL (3.0-53.7)
--- NOTE | 2021-03-28 22:30 | HP.PCM_ITS ---
Documented by User: DM Boone 03/28/21 22:52 HPI - General General Date of Admission: 03/28/21 Date of Service: 03/28/21 Chief Complaint: Syncope HPI Narrative MARILEE DALAL, is a 55 F who presents with complaints of burning in the left chest and palpitations. Patient reports that over the past few months she has had runs of palpitations and was told that she has SVT on a prior ER visit. Patient was seen by electrophysiology 2 weeks ago at [place] where she was evaluated for pacemaker and it was decided that patient was not a candidate for pacemaker. Patient is subsequently followed up with Dr. Chiang who ordered a 30-day event monitor which patient is currently wearing. Upon arrival to ER patient was noted to have a heart rate varying from 90s to 180s during which time patient was symptomatic with burning in the left chest as well as nausea and syncope. Patient denies fever, chills, shortness of breath, cough, diarrhea, constipation, vomiting. COUNT INCLUDES THE [facility] Medical History Premature atrial contraction Premature ventricular contraction Thyroid nodule Home Medications Lactobacillus acidophilus 1.5 mg (250 million cell) capsule 100 mmu cells PO DAILY 03/23/21 [History Last Taken Unknown] acetaminophen 325 mg tablet 325 mg PO Q4H PRN tab 03/23/21 [History Last Taken Unknown] aspirin 81 mg tablet,delayed release 81 mg PO DAILY 03/23/21 [History Last Taken 03/27/21] cholecalciferol (vitamin D3) 50 mcg (2,000 unit) capsule 50 mcg PO DAILY 03/23/21 [History Last Taken 03/28/21] fludrocortisone 0.1 mg tablet 0.1 mg PO DAILY tab 03/23/21 [History Last Taken Unknown] ibuprofen 200 mg tablet 400 mg PO Q4H PRN tab 03/23/21 [History Last Taken Unknown] Allergy/AdvReac Type Severity Reaction Status Date / Time No Known Allergies Allergy Verified 03/28/21 22:42 Family History Father Heart disease Mother Heart disease Surgical History S/P Social History Smoking Status: Never smoker alcohol intake: never substance use type: does not use caffeine: Yes what type of physical activity do you participate in: walking, aerobics and other details: stepper frequency: 5-6 times per week do you feel safe at home: Yes additional social history: - Landon KATIE Constitutional Constitutional: Reports fatigue; Denies anorexia, chills, fever(s), malaise or weakness Cardiovascular Cardiovascular: Reports dizziness, nausea, orthostatic symptoms, palpitations and other Details: Burning to left chest ; Denies chest pain or edema Respiratory/Chest Respiratory/Chest: Denies cough, shortness of breath at rest or shortness of b reath with exertion Gastrointestinal Gastrointestinal: Reports nausea; Denies abdominal pain, constipation, diarrhea or vomiting Genitourinary Genitourinary: Denies dysuria Musculoskeletal Musculoskeletal: Denies back pain, extremity pain, joint pain or joint stiffness Integumentary Integumentary: Denies dry skin Neurologic Neurologic: Reports dizziness; Denies abnormal gait, abnormal speech, confusion, focal weakness or headache(s) Psychiatric Psychiatric: Denies anxiety or depression Endocrine Endocrinology: Denies change in body appearance Hematologic/Lymphatic Hematologic/Lymphatic: Denies easy bleeding or easy bruising Vital Signs Vital Signs Vital Signs: 03/28/21 20:15 03/28/21 20:20 03/28/21 20:50 Temperature 96.8 F L Temperature Source Temporal Pulse Rate 141 H 85 Respiratory Rate 24 H 20 H Respiratory Effort Normal Non-Labored Blood Pressure 124/95 H 95/85 H Blood Pressure Mean 104 88 Pulse Ox 99 100 Oxygen Delivery Method Room Air Room Air Oxygen Flow Rate (L/min) 03/28/21 21:12 03/28/21 21:44 03/28/21 21:55 Temperature 97.6 F L Temperature Source Oral Pulse Rate 94 91 Respiratory Rate 15 15 Respiratory Effort Blood Pressure 93/72 102/63 Blood Pressure Mean 79 76 Pulse Ox 100 100 100 Oxygen Delivery Method Room Air Nasal Cannula Nasal Cannula Oxygen Flow Rate (L/min) 2 2 03/28/21 22:00 Temperature Temperature Source Pulse Rate 79 Respiratory Rate 15 Respiratory Effort Blood Pressure 101/83 H Blood Pressure Mean 89 Pulse Ox 100 Oxygen Delivery Method Nasal Cannula Oxygen Flow Rate (L/min) 2 Weight Weight: 232 lb 12.93 oz Body Mass Index (BMI) 48.6 Physical Exam Const alert, oriented x3 and no apparent distress General Appearance: cooperative HEENT normocephalic and head/scalp atraumatic Eyes conjunctivae normal and no scleral icterus Neck supple and no JVD General: trachea midline Thyroid: solitary palpable nodule left (Asymptomatic, patient previously worked up for Cristian's test results negative) Resp normal respiratory effort, normal air movement and clear to auscultation bilaterally Cardio regular rhythm, S1 normal heart sound, S2 normal heart sound and peripheral pulses 2+ throughout Rate: tachycardic GI normal to inspection, nondistended, normoactive bowel sounds, soft to palpation and non-tender Extremity normal capillary refill and no clubbing, cyanosis or edema General Extremity: no tenderness to palpation of joints or extremities Skin General Skin Exam: no breakdown and turgor normal Lesions: no lesions Rashes: no rashes Neuro no focal motor deficits and no sensory deficits noted Speech: speech normal Motor Exam: Negative for general weakness Psych thought process normal, cooperative and affect normal Appearance: appropriate Results Lab / Micro Data Result Diagrams: 03/28/21 20:20 03/28/21 20:20 Labs: Laboratory Results - last 24 hr 03/28/21 20:20: WBC 8.0, RBC 4.95, Hgb 13.5, Hct 42.5, MCV 85.9, MCH 27.3, MCHC 31.8 L, RDW Std Deviation 41.9, RDW Coeff of Gunner 13.4, Plt Count 300, MPV 10.9, Immature Gran % (Auto) 0.300, Neut % (Auto) 47.8, Lymph % (Auto) 39.0, [place] % (A uto) 8.6, Eos % (Auto) 3.5, Baso % (Auto) 0.8, Absolute Neuts (auto) 3.8, Absolute Lymphs (auto) 3.12, Nucleated RBC % 0 03/28/21 20:20: Sodium 141, Potassium 4.6, Chloride 107, Carbon Dioxide 30.0, Anion Gap 4 L, BUN 10, Creatinine 0.90, Estim Creat Clear Calc 120.51, Est GFR (MDRD) Af Amer 84, Est GFR (MDRD) Non-Af 69, BUN/Creatinine Ratio 11.0, Glucose 107 H, Calcium 9.0, Magnesium 2.1, Troponin I High Sens 3.5, TSH 1.65 Radiology Impression Chest X-Ray 03/28/21 20:39 IMPRESSION: Normal x-ray examination of the chest. Electronically Signed: Suzanne Ratliff MD at 20:55 EDT Tel , Service support , Assessment & Plan Assessment/Plan (1) Heart palpitations: (2) Premature ventricular contraction: PLAN: 1. Supraventricular tachycardia -Admit to PCU for cardiac monitoring -Echocardiogram complete 03/16/2021 shows EF 50% with a grade 1 diastolic dysfunction -CBC & BMP ordered for a.m. -Magnesium 2.1 -Normal saline 75 ml/hr -Trend cardiac enzymes initial level 3.5 -Oxygen per protocol -Orthostatic vital signs x1 2. Hypotension with syncope -Continue fludrocortisone -Vital signs per protocol, trend BP and heart rate 3. Asymptomatic benign thyroid nodule -Patient completed outpatient work-up for Cristian's, work-up negative -TSH 1.65 today DVT prophylaxis-SCDs, no pharmacological prophylaxis indicated This patient was seen by DM Boone under the supervision of Dr. Pal. Documented by User: Dr. River Pal MD 03/28/21 22:57 HPI - General General Date of Admission: 03/28/21 COUNT INCLUDES THE [facility] Medical History Premature atrial contraction Premature ventricular contraction Thyroid nodule Home Medications Lactobacillus acidophilus 1.5 mg (250 million cell) capsule 100 mmu cells PO DAILY 03/23/21 [History Last Taken Unknown] acetaminophen 325 mg tablet 325 mg PO Q4H PRN tab 03/23/21 [History Last Taken Unknown] aspirin 81 mg tablet,delayed release 81 mg PO DAILY 03/23/21 [History Last Taken 03/27/21] cholecalciferol (vitamin D3) 50 mcg (2,000 unit) capsule 50 mcg PO DAILY 03/23/21 [History Last Taken 03/28/21] fludrocortisone 0.1 mg tablet 0.1 mg PO DAILY tab 03/23/21 [History Last Taken Unknown] ibuprofen 200 mg tablet 400 mg PO Q4H PRN tab 03/23/21 [History Last Taken Unknown] Allergy/AdvReac Type Severity Reaction Status Date / Time No Known Allergies Allergy Verified 03/28/21 22:42 Family History Father Heart disease Mother Heart disease Surgical History S/P Social History Smoking Status: Never smoker alcohol intake: never substance use type: does not use caffeine: Yes what type of physical activity do you participate in: walking, aerobics and other details: stepper frequency: 5-6 times per week do you feel safe at home: Yes additional social history: Charles Navarrete Results Lab / Micro Data Result Diagrams: 03/28/21 20:20 03/28/21 20:20 Charges/Coding Addendum Addendum: Patient was seen and examined independently. I agree with assessment and plan by DAVID BooneC In summary patient is a 55-year-old female who is being follow-up for syncope and has a Holter monitor/event monitor presenting because of syncope that reocc urred on the same day of presentation. Associated with her symptom is palpitation; chest pressure and chest burning. She pressed a button on her Holter monitor/event monitor and she was instructed to call. Upon calling she was instructed to come to the emergency department. At the emergency department a heart rate was in the 180s. She received Cardizem boluses. Because of her symptoms persisted a decision was below patient to stay at the hospital. Constitutional: Denies anorexia and change in weight Eyes: Denies blurry vision, change in eye color, change in vision, discharge from eye(s), double vision, erythema, eye pain, loss of vision or other HEENT: Denies abnormal hearing, dysphagia, ear pain, epistaxis, headache(s), hearing loss, nasal congestion, nasal discharge, post nasal drip, sinus pressure, sore throat or other Cardiovascular: Reports chest pain. Reports syncope Respiratory/Chest: Denies cough, excessive phlegm production, and wheezing. Reports shortness of breath. Gastrointestinal: Denies abdominal pain, coffee ground emesis, constipation, diarrhea, dyspepsia, hematemesis, hematochezia, loose stools, melena, nausea, vomiting or other Genitourinary: Denies burning urination, difficulty urinating, dysuria, hematuria, nocturia, urinary frequency, urinary hesitancy, urinary incontinence, urinary urgency or other Musculoskeletal: Denies arthralgias, back pain, joint pain, joint stiffness, joint swelling, myalgias, neck pain or other Neurologic: Denies abnormal gait, abnormal speech, confusion, disequilibrium, dizziness, focal weakness, headache(s), numbness, paresthesias, seizure-like activity, seizures, tingling, tremor(s) or other Psychiatric: Denies anxiety, depression, homicidal ideation, suicidal ideation or other Endocrinology: Denies change in body appearance, cold intolerance, excessive sweating, heat intolerance, polydipsia, polyuria or other Hematologic/Lymphatic: Denies anemia, easy bleeding, easy bruising, lymphadenopathy or other Integumentary: Denies rashes Allergic/Immunologic: Denies rhinitis, hives, eczema, asthma or other Physical exam: General: Well-nourished, well-developed, no acute distress Head: Normocephalic, atraumatic, no tenderness Eyes: PERRLA, EOMI ENT, no trauma, moist mucous membranes, no rhinorrhea Neck: Nontender, full range of motion, no spinal tenderness, deformities, step- off CVS: Regular rate and rhythm Respiratory no acute distress, clear to auscultation bilaterally, chest wall nontender, no wheezing Abdomen: Soft, nontender, nondistended, normal bowel sounds, no masses : Deferred Back: Nontender, no CVA tenderness, no midline spinal tenderness, deformities, step-offs Extremities: Nontender full range of motion, no trauma Skin: Normal color, no trauma, abrasions Neuro: Alert, oriented, cranial nerves II through XII grossly intact. Psychiatry: Normal mood. Normal affect. Not depressed. Not anxious. Dysrhythmia EKG was reviewed. EKG showed sinus tachycardia and PACs. BMP reviewed showed potassium of 4.6. Will check magnesium level. Old records reviewed showed that TSH was obtained on 03/28/2021. TSH was 1.65, normal. Impressive chest x-ray by radiology: Normal x-rays admission of the chest. Actual chest x-ray was independently interpreted and I agree with the radiolog ist interpretation. Echocardiogram on 03/16/2021 obtained at [facility]: Estimated ejection fr action was 59%. Mild diffuse hypokinesis. Grade 1 diastolic dysfunction. The left atrium was normal in size. Will observe patient in the progressive care unit on telemetry. Consult cardiology. History of hypertension Blood pressure is within goal. Fludrocortisone continued. Trend blood pressu res DVT prophylaxis: SCD ordered. Visit Charges OBSV E&M: 94747 Initial observation care L2
[2021-03-28] MEDS: 0.9% Normal Saline 1,000 ML 75 ML IV (23:12)
[2021-03-28] MEDS: 0.9% Saline Lock 10 ML Syringe IV (23:13)
[2021-03-28 23:36] LABS: Troponin-I HS 5.9 pg/mL (3.0-53.7)
[2021-03-29] VITALS (17 sets, daily range): BP systolic 107–135; BP diastolic 66–88; PULSE 60–87; RESP 14–18; TEMP 36–36.6; O2SAT 95–99
--- NOTE | 2021-03-29 | NURSING ---
Pandemic Charting 03/28/21 23:00
[2021-03-29] MEDS: ALPRAZolam 0.5 MG Tablet PO ×2 (00:39→21:15)
[2021-03-29] MEDS: Acetaminophen 325 MG Tablet 650 MG PO ×3 (00:42→21:15)
[2021-03-29 02:20] LABS: Absolute Lymphocyte Count 2.49 X10^3/uL (0.83-4.51); Absolute Neutrophil Count 3.1 X10^3/uL (2.0-7.7); Basophil# 0.05 X10^3/uL; Basophil% 0.8 % (0-1); Eosinophil# 0.23 X10^3/uL; Eosinophils% 3.6 % (0-5); Hematocrit 37.6 % (37-47); Hemoglobin 12.1 g/dL (12.0-15.0); Lymphocyte # 2.49 X10^3/ul (0.83-4.51); Lymphocyte % 38.5 % (19-41); Mean Corp Hgb Conc 32.2 g/dL (32-36); Mean Corpuscular Hgb 27.4 pg (27.0-32.0); Mean Corpuscular Volume 85.3 fL (81-99); Mean Platelet Vol. 9.3 fl (6.2-12.0); Monocyte# 0.59 X10^3/uL; Monocyte% 9.1 % (0-10); NRBC Flagged by Analyzer 0 % (0-5); Neutrophil # 3.08 X10^3/uL (2.7-7.7); Neutrophil % 47.7 % (47-70); Platelet Count 227 K/mm3 (150-450); RBC Distribution Width CV 13.1 % (11.6-14.6); RBC Distribution Width SD 40.8 fl (35.1-43.9); Red Blood Count 4.41 M/mm3 (4.2-5.4); White Blood Count 6.5 K/mm3 (4.4-11.0)
[2021-03-29 02:38] LABS: Troponin-I HS 5.6 pg/mL (3.0-53.7)
[2021-03-29 03:08] LABS: Anion Gap 5 (5-15); BUN 12 mg/dL (7-18); BUN/Creat Ratio 20.7 RATIO (10-20); Calcium,Total 8.3 mg/dL (8.5-10.1); Chloride 113 mmol/L (98-107); Creatinine, Serum 0.58 mg/dL (0.55-1.02); EST Glomerular Filtration Rate 115 mL/min (>60); Est Glom Filt Rate - Afr Amer 140 mL/min (>60); Estimated Creatinine Clearance 175.31 ml/min; Glucose 94 mg/dL (74-106); Potassium 3.7 mmol/L (3.5-5.1); Sodium Level 145 mmol/L (136-145)
--- NOTE | 2021-03-29 09:58 | PN.HOSP_ITS ---
Documented by User: Ruby Ellison NP, [employer] 03/29/21 10:15 Subjective Subjective Patient seen and examined. Denies current chest pain, shortness of breath, palpitations. Patient states she was discharged from [facility] 03/20/21 with a an event monitor. She was notified by her event monitor company to seek medical attention. Objective Data Objective Data Vital Signs: Vital Signs Temp Pulse Resp BP Pulse Ox 96.8 F L 70 14 108/66 95 03/29/21 05:15 03/29/21 07:00 03/29/21 05:15 03/29/21 05:15 03/29/21 07:32 Oxygen Flow Rate (L/min) 2 Oxygen Delivery Method Room Air Weight: 218 lb 4.122 oz Body Mass Index (BMI) 44.0 Intake & Output: Intake and Output for Last 24 Hours 03/27/21 03/28/21 03/29/21 23:59 23:59 23:59 Intake Total 1000 / 1000 Balance 1000 / 1000 Lab / Micro Data Result Diagrams: 03/29/21 02:10 03/29/21 02:10 Labs: Laboratory Results - last 24 hr 03/28/21 20:20: WBC 8.0, RBC 4.95, Hgb 13.5, Hct 42.5, MCV 85.9, MCH 27.3, MCHC 31.8 L, RDW Std Deviation 41.9, RDW Coeff of Gunner 13.4, Plt Count 300, MPV 10.9, Immature Gran % (Auto) 0.300, Neut % (Auto) 47.8, Lymph % (Auto) 39.0, [place] % (Auto) 8.6, Eos % (Auto) 3.5, Baso % (Auto) 0.8, Absolute Neuts (auto) 3.8, Absolute Lymphs (auto) 3.12, Nucleated RBC % 0 03/28/21 20:20: Sodium 141, Potassium 4.6, Chloride 107, Carbon Dioxide 30.0, Anion Gap 4 L, BUN 10, Creatinine 0.90, Estim Creat Clear Calc 120.51, Est GFR (MDRD) Af Amer 84, Est GFR (MDRD) Non-Af 69, BUN/Creatinine Ratio 11.0, Glucose 107 H, Calcium 9.0, Magnesium 2.1, Troponin I High Sens 3.5, TSH 1.65 08/16/21 23:12: Magnesium 2.0 03/28/21 23:12: Troponin I High Sens 5.9 03/29/21 02:10: WBC 6.5, RBC 4.41, Hgb 12.1, Hct 37.6, MCV 85.3, MCH 27.4, MCHC 32.2, RDW Std Deviation 40.8, RDW Coeff of Gunner 13.1, Plt Count 227, MPV 9.3, Immature Gran % (Auto) 0.300, Neut % (Auto) 47.7, Lymph % (Auto) 38.5, [place] % (Auto) 9.1, Eos % (Auto) 3.6, Baso % (Auto) 0.8, Absolute Neuts (auto) 3.1, Absolute Lymphs (auto) 2.49, Nucleated RBC % 0 03/29/21 02:10: Sodium 145, Potassium 3.7, Chloride 113 H, Carbon Dioxide 27.0, Anion Gap 5, BUN 12, Creatinine 0.58, Estim Creat Clear Calc 175.31, Est GFR (MDRD) Af Amer 140, Est GFR (MDRD) Non-Af 115, BUN/Creatinine Ratio 20.7 H, Glucose 94, Calcium 8.3 L 03/29/21 02:10: Troponin I High Sens 5.6 Radiography Diagnostic Testing: Radiology Impression Chest X-Ray 03/28/21 20:39 IMPRESSION: Normal x-ray examination of the chest. Electronically Signed: Suzanne Ratliff MD at 20:55 EDT Tel , Service support , Physical Exam Const alert, oriented x3 and no apparent distress Orientation / Consciousness: awake, oriented to person, oriented to place and oriented to time HEENT normocephalic and moist oral mucous membranes Eyes PERRL, EOMs intact bilaterally and conjunctivae normal Neck no lymphadenopathy Resp normal respiratory effort and clear to auscultation bilaterally Cardio regular rate, regular rhythm and no murmurs Peripheral Pulses: pulses 2+ throughout GI normal to inspection, nondistended, normoactive bowel sounds, non-tender and non-distended Extremity normal to inspection Skin no rashes or lesions noted Lesions: no lesions Rashes: no rashes Trauma: no lacerations or abrasions Neuro CN's II-XII intact bilaterally, no focal motor deficits, no sensory deficits noted and deep tendon reflexes 2+ bilaterally Psych mental status grossly normal and affect normal Assessment & Plan Assessment/Plan (1) Premature ventricular contraction: (2) Syncope: PLAN: 1. Paroxysmal SVT/atrial tachycardia-recent admission at [facility] where EP was consulted, Dr. Simmons. Echo at outside facility with normal EF. 48-hour Holter monitor revealed short runs of ectopic atrial tachycardia as well as 2 short runs of 4 and 6 beat wide complex ventricular tachycardia. She was not discharged on antiarrhythmic or rate control regimen. Cardiology consulted. Plan for stress test. Monitor telemetry. Patient initially placed on Cardizem drip/bolus. Further medication adjustments per cardiology. Troponin negative. TSH, mag normal. 2. Syncope-suspect related to #1 also with recent diagnosis orthostatic hypotension. Recent echo with normal EF. Plan for stress test as noted above. 3. Orthostatic hypotension-on Florinef. Repeat orthostatic vitals on admission negative. 4. Benign thyroid nodule-outpatient work-up unremarkable. Cristian's ruled out. DVT prophylaxis- Lovenox sc This patient was seen by DM Bird under the supervision of Dr. Sims. Documented by User: Dr. Kelli Sims MD 03/29/21 15:31 Objective Data Lab / Micro Data Result Diagrams: 03/29/21 02:10 03/29/21 02:10 Charges/Coding Addendum Addendum: Patient is a 55-year-old female with past medical history as outlined was admitted to the ED with a complaint of palpitations. Patient had had a similar symptoms in the past and has been evaluated by an food mixer repairer at [facility] and had a 24-hour Holter monitor done which showed sinus rhythm with PACs and PVCs and underlying atrial tachycardia with rapid ventricular rate as well as episodes of nonsustained ventricular tachycardia. Patient did have 30-day event monitor placed 4 days ago. However his symptoms again occurred the night before admission so she called a one 800-number she was given she was told to come into the ED. She had no complaints at time I reviewed her. She denied any chest pain, dizziness, nausea vomiting. She denied any other symptoms and review of systems otherwise negative. O/E: Const alert, oriented x3 and no apparent distress Orientation / Consciousness: awake, oriented to person, oriented to place and oriented to time HEENT normocephalic and moist oral mucous membranes Eyes PERRL, EOMs intact bilaterally and conjunctivae normal Neck no lymphadenopathy Resp normal respiratory effort and clear to auscultation bilaterally Cardio regular rate, regular rhythm and no murmurs Peripheral Pulses: pulses 2+ throughout GI normal to inspection, nondistended, normoactive bowel sounds, non-tender and non-distended Extremity normal to inspection Skin no rashes or lesions noted Lesions: no lesions Rashes: no rashes Trauma: no lacerations or abrasions Neuro CN's II-XII intact bilaterally, no focal motor deficits, no sensory deficits noted and deep tendon reflexes 2+ bilaterally Psych mental status grossly normal and affect normal Plan is to consult cardiology for their input, in light of her having an event monitor and having had to see an EP physician. Plan is for her to have a stress test. Contiue monitoring on telemetry. On florinef for orthostatic hypotension. On metoprolol 25mg bid as per cardiology. Lovenox for dvt prophylaxis. Rest as per Ruby Ellison [employer]'s note, which I have reviewed and endorsed. Visit Charges Inpatient E&M: 83157 Subs Hosp L2
[2021-03-29] MEDS: Aspirin E.C. 81 MG Tablet PO (10:01)
[2021-03-29] MEDS: Cholecalciferol (VIT D3) 25 MCG TABLET (1,000 UNITS) 50 MCG PO (10:06)
[2021-03-29] MEDS: Fludrocortisone Acetate 0.1 MG Tablet PO (10:06)
--- NOTE | 2021-03-29 12:47 | STRESSREP_ITS ---
Stress Test Report Date: 03-29-2021 Procedure: Pharmacologic stress nuclear imaging study Indications: Chest pain; near syncope/syncope; PSVT; nonsustained ventricular tachycardia Consent: Per the patient Procedure: The patient underwent pharmacologic (Regadenoson 0.4mg ) evaluation with a peak heart rate of 100 beats per minute (59%predicted maximal heart rate) and a peak blood pressure of 122/82 mmHg. The baseline ECG demonstrated sinus rhythm. The peak pharmacologic ECG demonstrated no obvious ECG changes. There were no cardiac dysrhythmias pretest, during pharmacologic infusion, or recovery. There was no complaint of chest discomfort during pharmacologic infusion or recovery. The examination was discontinued secondary to completion of protocol. Impression: 1. Pharmacologic (Regadenoson) evaluation 2. Peak pharmacologic ECG with no obvious ECG changes. 3. There were no cardiac dysrhythmias pretest, during pharmacologic infusion, o r recovery. 4. Nuclear images pending Myocardial perfusion imaging study: Technique: The patient was injected with 11.0 millicuries of technetium 99m Cardiolite and subsequently rest SPECT Cardiolite nuclear imaging was obtained in the horizontal long, vertical long, and short axis views. The patient underwent pharmacologic (Regadenoson) evaluation with a peak heart rate of 100 beats per minute (59% percent predicted maximal heart rate) and a peak blood pressure of 122/82 mmHg. The patient was injected with 33.0 millicuries of technetium 99m Cardiolite and subsequently stress SPECT Cardiolite nuclear imaging was obtained in the horizontal long, vertical long, and short axis views. A gated Cardiolite study at peak stress was obtained. Interpretation: Rest and stress SPECT Cardiolite nuclear imaging status post realignment, normalization, and attenuation correction demonstrate at rest the appearance of relative uniform tracer uptake. Status post stress there is notation of an area of diminished tracer uptake in the mid towards distal anteroseptal segments. There is end systolic thickening and brightening. The gated Cardiolite study demonstrates myocardial thickening and inward wall motion. The reported LVEF is 61%. Impression: 1. Rest and stress SPECT her nuclear imaging demonstrate myocardial perfusion changes potentially compatible with an area of stress-induced myocardial ischemia in the mid to distal anteroseptal segments, however, an element of shifting soft tissue attenuation/artifact cannot necessarily be excluded. 2. The gated Cardiolite study reports an LVEF of 61%. This note was generated with Dragon dictation software. It may contain incorrect words, spelling, and punctuation that were not noted in checking the note before signing.
--- NOTE | 2021-03-29 12:53 | PCM.CONS.C ---
Assessment & Plan Assessment/Plan (1) Syncope: PLAN: The patient has had episodes of near syncope/syncope. She has been undergoing further evaluation as noted. She will continue to be monitored. She will continue to wear her 30-day ambulatory event monitor. She was encouraged to continue to follow-up with her steward/stewardess second class in [place], [place]. In the interim she will undergo further evaluation and care based upon her symptoms and her abnormal stress test. (2) History of PSVT (paroxysmal supraventricular tachycardia): PLAN: She does have a history of PSVT. She will continue to be monitored for further evaluation of her PSVT. An attempt will be made to retrieve her 30-day ambulatory event monitor rhythm strips for review. If she is thought to have definitive evidence of atrial fibrillation then she will need ongoing rate control therapy with consideration for anticoagulant therapy. (3) History of ventricular tachycardia: PLAN: She has been documented to have ventricular tachycardia. Again she will continue medical management and follow-up at this time. Based upon her symptoms, her objective findings, and her stress test, she will would be recommended for further evaluation which will include diagnostic cardiac catheterization. (4) Abnormal stress test: PLAN: The patient stress test does appear to be abnormal. It is unclear whether this represents true underlying CAD myocardial ischemia versus a false positive study. Based upon her clinical course and other objective findings it be reasonable to consider further definitive evaluation with diagnostic cardiac catheterization. The procedure and risk were discussed with the patient. She was agreeable to this approach. Addt'l Comments This note was generated using a voice recognition system and there may be incorrect words, spelling or punctuation that were not noted when reviewing the office note prior to saving. HPI Consult Data Date of Consult: 03/29/21 HPI Narrative HPI Narrative: MARILEE DALAL, is a 55 year old white female who presents who presents for cardiovascular consultation based upon concerns of recurrent palpitations/rapid heart rate, left-sided chest discomfort/burning, shortness of breath/dyspnea, and near syncope/syncope who has previously been evaluated by Dr. Villagomez of electrophysiology at [facility] in [place], [place] for concerns of PSVT and nonsustained ventricular tachycardia. She has been having previous episodes where she feels like she nearly loses consciousness or transiently loses consciousness. These episodes have occurred while she is either sitting or standing. They have been brief. At times she stated in the past she would feel somewhat nauseated and become diaphoretic. She had undergone a 24-hour Holter monitor. She had sinus rhythm with PACs and PVCs and underlying atrial tachycardia with rapid ventricular rates greater than 200 bpm as well as episodes of nonsustained ventricular tachycardia (2 episodes with the longest episode being 6 beats in duration). She had been evaluated at [facility] in [place], [place] for similar type symptoms. While there she underwent evaluation with a transthoracic echocardiogram. The left ventricle was thought to be normal with an LVEF 59% with a comment in her report of mild diffuse hypokinesis and grade 1 diastolic dysfunction and no hemodynamically significant valvular heart disease. She was evaluated by electrophysiology. She was released with a 30-day ambulatory event monitor. She was also released on medical therapy with fludrocortisone at 0.1 mg daily. She states she was to follow-up with her steward/stewardess second class once her event monitor was complete. She notes she had recurrent symptoms last night. She states she received a call from her event monitor company advising her to go to the nearest emergency department. She presented to [facility]. There she was reported as having an elevated heart rate in the 140s and being irregular and intermittently an elevated heart rate in the 180s. She received IV diltiazem therapy. Her heart rate slowed. According to the emergency [facility] report it stated that she appeared to be in atrial fibrillation. Upon review of her ECGs it appeared she had one demonstrating sinus rhythm with PACs and 1 demonstrating sinus rhythm versus an ectopic atrial tachycardia. She was placed in the PCU for further evaluation and care. Her cardiac enzymes have been negative. Her chest x-ray is as noted below. She is also undergone further evaluation based upon her symptoms and events with a pharmacologic stress nuclear imaging study. The results are as noted below. [facility] Medical History Premature atrial contraction Premature ventricular contraction Thyroid nodule Home Medications Lactobacillus acidophilus 1.5 mg (250 million cell) capsule 100 mmu cells PO DAILY 03/23/21 [History Last Taken Unknown] acetaminophen 325 mg tablet 325 mg PO Q4H PRN tab 03/23/21 [History Last Taken Unknown] aspirin 81 mg tablet,delayed release 81 mg PO DAILY 03/23/21 [History Last Taken 03/27/21] cholecalciferol (vitamin D3) 50 mcg (2,000 unit) capsule 50 mcg PO DAILY 03/23/21 [History Last Taken 03/28/21] fludrocortisone 0.1 mg tablet 0.1 mg PO DAILY tab 03/23/21 [History Last Taken Unknown] ibuprofen 200 mg tablet 400 mg PO Q4H PRN tab 03/23/21 [History Last Taken Unknown] Allergy/AdvReac Type Severity Reaction Status Date / Time No Known Allergies Allergy Verified 03/28/21 22:42 Family History Father Heart disease Mother Heart disease Surgical History S/P Social History Smoking Status: Never smoker alcohol intake: never substance use type: does not use caffeine: Yes what type of physical activity do you participate in: walking, aerobics and other details: stepper frequency: 5-6 times per week do you feel safe at home: Yes additional social history: - Landon WILSON Constitutional Constitutional: Reports as per HPI Eyes Eyes: Reports as per HPI ENT HEENT: Reports as per HPI Cardiovascular Cardiovascular: Reports chest pain, dyspnea, pounding heartbeat, rapid heart rate and syncope Respiratory/Chest Respiratory/Chest: Reports dyspnea Gastrointestinal Gastrointestinal: Reports as per HPI Genitourinary Genitourinary: Reports as per HPI Musculoskeletal Musculoskeletal: Reports as per HPI Integumentary Integumentary: Reports as per HPI Psychiatric Psychiatric: Reports as per HPI Physical Exam Const alert, oriented x3 and no apparent distress Orientation / Consciousness: awake HEENT normocephalic, head/scalp atraumatic and hearing grossly normal bilaterally Eyes PERRL, EOMs intact bilaterally and conjunctivae normal Neck full ROM, no lymphadenopathy, supple and no JVD Chest inspection of chest normal Resp clear to auscultation bilaterally Cardio regular rate, regular rhythm, S1 normal heart sound and S2 normal heart sound GI normal to inspection, nondistended, normoactive bowel sounds Extremity no pedal edema Skin no rashes or lesions noted Neuro oriented x3, moves all extremities, no focal motor deficits and no sensory deficits noted Psych mental status grossly normal Procedure Criteria Type of Procedure Procedure Type: Elective Elective Risks - COVID COVID Risk Discussion: The surgeon/proceduralist and patient have discussed in detail the risk of exposure to and/or potential harm posed by the COVID-19 virus with having a surgery/procedure at this time versus the risk of delaying the surgery/procedure. It is not possible to know either the risk of delaying the surgery or procedure or chance of getting an infection with perfect accuracy, but a joint decision was made between the patient and the surgeon/proceduralist to proceed at this time with the scheduled surgery/procedure as indicated on the consent form. Objective Data Vital Signs: Vital Signs Temp Pulse Resp BP Pulse Ox 97.1 F L 71 18 107/67 98 03/29/21 09:55 03/29/21 11:00 03/29/21 09:55 03/29/21 09:55 03/29/21 09:55 Oxygen Flow Rate (L/min) 2 Oxygen Delivery Method Room Air Weight: 218 lb 4.122 oz Body Mass Index (BMI) 44.0 Intake & Output: Intake and Output for Last 24 Hours 03/27/21 03/28/21 03/29/21 23:59 23:59 23:59 Intake Total 1000 / 1000 Balance 1000 / 1000 Lab / Micro Data Result Diagrams: 03/29/21 02:10 03/29/21 02:10 Labs: Laboratory Results - last 24 hr 03/28/21 20:20: WBC 8.0, RBC 4.95, Hgb 13.5, Hct 42.5, MCV 85.9, MCH 27.3, MCHC 31.8 L, RDW Std Deviation 41.9, RDW Coeff of Gunner 13.4, Plt Count 300, MPV 10.9, Immature Gran % (Auto) 0.300, Neut % (Auto) 47.8, Lymph % (Auto) 39.0, [place] % (Auto) 8.6, Eos % (Auto) 3.5, Baso % (Auto) 0.8, Absolute Neuts (auto) 3.8, Absolute Lymphs (auto) 3.12, Nucleated RBC % 0 03/28/21 20:20: Sodium 141, Potassium 4.6, Chloride 107, Carbon Dioxide 30.0, Anion Gap 4 L, BUN 10, Creatinine 0.90, Estim Creat Clear Calc 120.51, Est GFR (MDRD) Af Amer 84, Est GFR (MDRD) Non-Af 69, BUN/Creatinine Ratio 11.0, Glucose 107 H, Calcium 9.0, Magnesium 2.1, Troponin I High Sens 3.5, TSH 1.65 03/28/21 23:12: Magnesium 2.0 03/28/21 23:12: Troponin I High Sens 5.9 03/29/21 02:10: WBC 6.5, RBC 4.41, Hgb 12.1, Hct 37.6, MCV 85.3, MCH 27.4, MCHC 32.2, RDW Std Deviation 40.8, RDW Coeff of Gunner 13.1, Plt Count 227, MPV 9.3, Immature Gran % (Auto) 0.300, Neut % (Auto) 47.7, Lymph % (Auto) 38.5, [place] % (Auto) 9.1, Eos % (Auto) 3.6, Baso % (Auto) 0.8, Absolute Neuts (auto) 3.1, Absolute Lymphs (auto) 2.49, Nucleated RBC % 0 03/29/21 02:10: Sodium 145, Potassium 3.7, Chloride 113 H, Carbon Dioxide 27.0, Anion Gap 5, BUN 12, Creatinine 0.58, Estim Creat Clear Calc 175.31, Est GFR (MDRD) Af Amer 140, Est GFR (MDRD) Non-Af 115, BUN/Creatinine Ratio 20.7 H, Glucose 94, Calcium 8.3 L 03/29/21 02:10: Troponin I High Sens 5.6 Cardiology Labs/Tests 03/28/21 20:20: WBC 8.0, RBC 4.95, Hgb 13.5, Hct 42.5, MCV 85.9, MCH 27.3, MCHC 31.8 L, Plt Count 300, MPV 10.9, Immature Gran % (Auto) 0.300, Neut % (Auto) 47.8, Lymph % (Auto) 39.0, [place] % (Auto) 8.6, Eos % (Auto) 3.5, Baso % (Auto) 0.8, Absolute Neuts (auto) 3.8, Nucleated RBC % 0 03/28/21 20:20: Sodium 141, Potassium 4.6, Chloride 107, Carbon Dioxide 30.0, Anion Gap 4 L, BUN 10, Creatinine 0.90, Est GFR (MDRD) Af Amer 84, Est GFR (MDRD) Non-Af 69, BUN/Creatinine Ratio 11.0, Glucose 107 H, Calcium 9.0, Magnesium 2.1 03/28/21 23:12: Magnesium 2.0 03/29/21 02:10: WBC 6.5, RBC 4.41, Hgb 12.1, Hct 37.6, MCV 85.3, MCH 27.4, MCHC 32.2, Plt Count 227, MPV 9.3, Immature Gran % (Auto) 0.300, Neut % (Auto) 47.7, Lymph % (Auto) 38.5, [place] % (Auto) 9.1, Eos % (Auto) 3.6, Baso % (Auto) 0.8, Absolute Neuts (auto) 3.1, Nucleated RBC % 0 03/29/21 02:10: Sodium 145, Potassium 3.7, Chloride 113 H, Carbon Dioxide 27.0, Anion Gap 5, BUN 12, Creatinine 0.58, Est GFR (MDRD) Af Amer 140, Est GFR (MDRD) Non-Af 115, BUN/Creatinine Ratio 20.7 H, Glucose 94, Calcium 8.3 L Rhythm: As noted above EKG: As noted above ECHO: As noted above Stress Test: Stress Test Report Date: 03-29-2021 Procedure: Pharmacologic stress nuclear imaging study Indications: Chest pain; near syncope/syncope; PSVT; nonsustained ventricular tachycardia Consent: Per the patient Procedure: The patient underwent pharmacologic (Regadenoson 0.4mg ) evaluation with a peak heart rate of 100 beats per minute (59%predicted maximal heart rate) and a peak blood pressure of 122/82 mmHg. The baseline ECG demonstrated sinus rhythm. The peak pharmacologic ECG demonstrated no obvious ECG changes. There were no cardiac dysrhythmias pretest, during pharmacologic infusion, or recovery. There was no complaint of chest discomfort during pharmacologic infusion or recovery. The examination was discontinued secondary to completion of protocol. Impression: 1. Pharmacologic (Regadenoson) evaluation 2. Peak pharmacologic ECG with no obvious ECG changes. 3. There were no cardiac dysrhythmias pretest, during pharmacologic infusion, or recovery. 4. Nuclear images pending Myocardial perfusion imaging study: Technique: The patient was injected with 11.0 millicuries of technetium 99m Cardiolite and subsequently rest SPECT Cardiolite nuclear imaging was obtained in the horizontal long, vertical long, and short axis views. The patient underwent pharmacologic (Regadenoson) evaluation with a peak heart rate of 100 beats per minute (59% percent predicted maximal heart rate) and a peak blood pressure of 122/82 mmHg. The patient was injected with 33.0 millicuries of technetium 99m Cardiolite and subsequently stress SPECT Cardiolite nuclear imaging was obtained in the horizontal long, vertical long, and short axis views. A gated Cardiolite study at peak stress was obtained. Interpretation: Rest and stress SPECT Cardiolite nuclear imaging status post realignment, normalization, and attenuation correction demonstrate at rest the appearance of relative uniform tracer uptake. Status post stress there is notation of an area of diminished tracer uptake in the mid towards distal anteroseptal segments. There is end systolic thickening and brightening. The gated Cardiolite study demonstrates myocardial thickening and inward wall motion. The reported LVEF is 61%. Impression: 1. Rest and stress SPECT her nuclear imaging demonstrate myocardial perfusion changes potentially compatible with an area of stress-induced myocardial ischemia in the mid to distal anteroseptal segments, however, an element of shifting soft tissue attenuation/artifact cannot necessarily be excluded. 2. The gated Cardiolite study reports an LVEF of 61%. Radiography Diagnostic Testing: Radiology Impression Chest X-Ray 03/28/21 20:39 IMPRESSION: Normal x-ray examination of the chest. Electronically Signed: Suzanne Ratliff MD at 20:55 EDT Tel , Service support ,
[2021-03-29] MEDS: 0.9% Normal Saline 1,000 ML 75 ML IV (13:08)
--- NOTE | 2021-03-29 13:27 | NURSING ---
Report called to nurse Monik for pt to go to geophysical laboratory chief.
--- NOTE | 2021-03-29 13:30 | CASEMGMT ---
According to the [facility] website, the following are in-network tertiary facilities: [facility], [place], [facility], [place], [facility], [facility], [facility], [place], [facility], and . Samantha MEDINA CM
[2021-03-29 13:54] LABS: Internal QC Validated? YES +Cl - CLEAR BKGD
[2021-03-29 13:57] LABS: Pregnancy, Urine Negative Negative
--- NOTE | 2021-03-29 15:33 | CL.D_ITS ---
Patient Name: MARILEE DALAL Study Date: 03/29/2021 Performing: Chandra Chiang MD Ht: 59 inches 150 cm : 1965 Wt: 218.5 lbs 99 kg Age: 55 Gender: female BSA: 1.92 PROCEDURE(S) PERFORMED LG56-[id number]/COR/LV CLINICAL PROFILE AND INDICATIONS Indications: Cardiac Arrythmia Heart Failure: None Stress/Imaging Date: 03/29/2021tress Test with SPECT MPI: Positive Intermediate Risk Angina Classification Anginal Classification w/in 2 Weeks: CCS IV CAD Presentations: Other: palpitations; chest pain; dyspnea CONCLUSIONS Elevated Left Ventricular End Diastolic Pressure Normal LV size, wall motion,and systolic function LVEF: by LV gram 55 % Aortic Root dilated RECOMMENDATIONS Risk factor modification Medical therapy DESCRIPTION OF PROCEDURE The patient arrived to the procedure lab. The risks and benefits of the procedure as well as a full d escription of our services here and current unavailability of surgical backup were fully explained to the patient and/or their significant other prior to the catheterization. The Timeout was completed, verifying the correct patient and procedure. The patient's procedural site was prepped and draped in the usual fashion. Local anesthetic was given subcutaneously to right radial region with Lidocaine 2% . Using a modified Seldinger technique, arterial access was obtained via the right radial artery, a 6 Fr sheath was inserted. Left Coronary Artery selective angiography was performed in multiple views u sing a 5 Fr. 4.0 [place] catheter. Right Coronary Artery selective angiography was then performed in mu ltiple views using a 5 Fr. JR 4 catheter. Left Ventriculography was performed in CHRISTY projection using a 5 Fr. Pigtail catheter. LV to AO pullback pressures were then recorded.The arterial sheath was pulled and a TR Band was applied for hemostasis CORONARY ANGIOGRAPHY DOMINANCE: Right Dominant LEFT HEART ASSESSMENT Left Ventricular Ejection Fraction: by LV Gram 55 % Normal LV wall motion Elevated Left Ventricular End Diastolic Pressure LVEDP: 26 mmHg LEFT MAIN: Angiographically normal LEFT ANTERIOR DESCENDING ARTERY: MID LAD: angiographic findings potentially c/w an intramyocardial bridge segment, Mild luminal irregu larities CIRCUMFLEX ARTERY: Angiographically normal RIGHT CORONARY ARTERY: PROX RCA: Mild luminal irregularities AORTIC ROOT: Dilated COMPLICATIONS No Complications PROCEDURE MEDICATIONS Versed 1 mg IV Fentanyl 50 mcg IV Oxygen: 2 L/min via nasal cannula Heparin given IA 03/29/2021 14:40:10 Verapamil 2.5mg, Ntg 100mcgs, 3000 units of Heparin given IA 03/29/2021 14:40:10 SUMMARY OF HEMODYNAMIC DATA Time AIR REST ECG 14:17:15 Art 121/67 (88) 14:37:55 AO 113/71 (91) SA 14:47:40 LV 138/-2, 28 15:02:14 LV 136/-2, 26 15:02:20 LV 137/8, 31 15:03:27 LV 133/8, 28 15:03:33 LVp 132/7, 27 15:03:45 AOp 151/-26 (64) 15:03:50 Signed By Chandra Chiang MD On 03/29/2021 15:32:36 Chandra Chiang MD
[2021-03-29] MEDS: Metoprolol Tartrate 25 MG Tablet PO (21:15)
[2021-03-30] MEDS: 0.9% Normal Saline 1,000 ML 75 ML IV (01:02)
[2021-03-30 03:00] VITALS: PULSE 64
[2021-03-30 03:10] VITALS: BP 100/69; PULSE 66; RESP 18; TEMP 36.3; O2SAT 96
--- NOTE | 2021-03-30 04:43 | EKG12_ITS ---
Test Reason : ARRYTHMIA Blood Pressure : / mmHG Vent. Rate : 063 BPM Atrial Rate : 063 BPM P-R Int : 174 ms QRS Dur : 080 ms QT Int : 410 ms P-R-T Axes : 073 020 025 degrees QTc Int : 419 ms Normal sinus rhythm Normal ECG When compared with ECG of 28-MAR-2021 21:47, MANUAL COMPARISON REQUIRED, DATA IS UNCONFIRMED Confirmed by OLEKSANDR GUO, PARESH ([id number]), supervising editor news reel SAMAN RAMESH ([id number]) on 03/31/2021 9:23:45 AM Referred By: CORNELIO Confirmed By:PARESH LEGGETT MD
--- NOTE | 2021-03-30 05:55 | EKG12_ITS ---
Test Reason : CHEST PAIN Blood Pressure : / mmHG Vent. Rate : 146 BPM Atrial Rate : 146 BPM P-R Int : 144 ms QRS Dur : 072 ms QT Int : 248 ms P-R-T Axes : 000 023 089 degrees QTc Int : 386 ms Sinus tachycardia with Premature atrial complexes vs Ectopic Atrial Tachycardia with PAC's Nonspecific ST abnormality Abnormal ECG Confirmed by KHUSHBU GUO, AYDEN ([id number]), loan expeditor SAMAN RAMESH ([id number]) on 03/30/2021 10:07:47 AM Referred By: TESSY Confirmed By:AYDEN RÍOS MD
[2021-03-30 07:04] VITALS: PULSE 66
--- NOTE | 2021-03-30 07:13 | PCM.PN.CARD ---
Subjective Subjective The patient denies any new acute symptoms including recurrence of her palpitations or rapid heart rate sensation. Objective Data Vital Signs: Vital Signs Temp Pulse Resp BP Pulse Ox 97.4 F L 66 18 100/69 96 03/30/21 03:10 03/30/21 03:10 03/30/21 03:10 03/30/21 03:10 03/30/21 03:10 Oxygen Flow Rate (L/min) 2 Oxygen Delivery Method Room Air Weight: 218 lb 4.122 oz Body Mass Index (BMI) 44.0 Intake & Output: Intake and Output for Last 24 Hours 03/28/21 03/29/21 03/30/21 23:59 23:59 23:59 Intake Total 1000 / 1000 1360 / 1600 1252.5 / 1252.5 Balance 1000 / 1000 1360 / 1600 1252.5 / 1252.5 Lab / Micro Data Result Diagrams: 03/29/21 02:10 03/29/21 02:10 Labs: Laboratory Results - last 24 hr 03/29/21 13:41: Urine Test Negative Cardiology Labs/Tests Rhythm: Sinus rhythm Physical Exam Const alert, oriented x3 and no apparent distress Orientation / Consciousness: awake HEENT normocephalic, head/scalp atraumatic and hearing grossly normal bilaterally Eyes PERRL, EOMs intact bilaterally and conjunctivae normal Neck full ROM, no lymphadenopathy, supple and no JVD Chest inspection of chest normal Resp clear to auscultation bilaterally Cardio regular rate, regular rhythm, S1 normal heart sound and S2 normal heart sound GI normal to inspection, nondistended, normoactive bowel sounds Extremity no pedal edema Peripheral Pulses: Yes radial pulses present right (Right radial artery: No obvious bruit: No obvious hematoma) 2+ Skin no rashes or lesions noted Neuro oriented x3, moves all extremities, no focal motor deficits and no sensory deficits noted Psych mental status grossly normal Assessment & Plan Assessment/Plan (1) Syncope: PLAN: The patient has had episodes of near syncope/syncope. She has been undergoing further evaluation as noted. She will continue to be monitored. She will continue to wear her 30-day ambulatory event monitor placed by her hand almond blancher in [place], [place].. She was encouraged to continue to follow-up with her hand almond blancher in [place], [place]. (2) History of PSVT (paroxysmal supraventricular tachycardia): PLAN: She does have a history of PSVT. She will continue to be monitored for further evaluation of her PSVT. An attempt will be made to retrieve her 30-day ambulatory event monitor rhythm strips for review. (3) History of ventricular tachycardia: PLAN: She has been documented to have ventricular tachycardia. Again she will continue medical management and follow-up at this time. (4) Abnormal stress test: PLAN: She did undergo further evaluation. This included a diagnostic cardiac catheterization. She did not have any angiographically significant appearing CAD. Overall the systolic function appears to be preserved. Addt'l Comments At the present time she appears to be without any new acute symptoms or objective findings with respect to her cardiac rate/rhythm. She will continue medical therapy which has included her beta-zenaida therapy which she appears to be tolerating thus far. There are no other additional cardiovascular studies planned at this time. She was asked, as noted above, to continue to wear her event monitor placed by her hand almond blancher in [place], [place], and follow-up with him for further cardiac rhythm related issues. The above was discussed with her and she was agreeable to this approach. This note was generated using a voice recognition system and there may be incorrect words, spelling or punctuation that were not noted when reviewing the office note prior to saving.
[2021-03-30 07:18] LABS: Absolute Lymphocyte Count 1.01 X10^3/uL (0.83-4.51); Absolute Neutrophil Count 3.3 X10^3/uL (2.0-7.7); Basophil# 0.04 X10^3/uL; Basophil% 0.8 % (0-1); Eosinophil# 0.22 X10^3/uL; Eosinophils% 4.4 % (0-5); Hematocrit 37.7 % (37-47); Hemoglobin 11.9 g/dL (12.0-15.0); Lymphocyte # 1.01 X10^3/ul (0.83-4.51); Mean Corp Hgb Conc 31.6 g/dL (32-36); Mean Corpuscular Volume 85.7 fL (81-99); Mean Platelet Vol. 9.8 fl (6.2-12.0); Monocyte# 0.45 X10^3/uL; Monocyte% 8.9 % (0-10); NRBC Flagged by Analyzer 0 % (0-5); Neutrophil # 3.31 X10^3/uL (2.7-7.7); Neutrophil % 65.7 % (47-70); Platelet Count 223 K/mm3 (150-450); RBC Distribution Width CV 13.2 % (11.6-14.6); RBC Distribution Width SD 41.4 fl (35.1-43.9)
[2021-03-30 07:59] VITALS: O2SAT 96
[2021-03-30 08:40] LABS: AST(SGOT) 18 U/L (15-37); Alanine Aminotransfer ALT/SGPT 31 U/L (13-56); Albumin, Serum 2.6 g/dL (3.2-5.0); Alkaline Phosphatase 67 U/L (45-117); Anion Gap 6 (5-15); BUN 9 mg/dL (7-18); BUN/Creat Ratio 14.8 RATIO (10-20); Bilirubin, Direct 0.07 mg/dL (0.00-0.30); Calcium,Total 8.5 mg/dL (8.5-10.1); Chloride 111 mmol/L (98-107); Cholesterol 145 mg/dL (200); Creatinine, Serum 0.61 mg/dL (0.55-1.02); EST Glomerular Filtration Rate 109 mL/min (>60); Est Glom Filt Rate - Afr Amer 132 mL/min (>60); Estimated Creatinine Clearance 166.69 ml/min; Globulin 3.4 g/dL (2.2-4.2); Glucose 81 mg/dL (74-106); High Density Lipoprotein 43 mg/dL; Potassium 3.6 mmol/L (3.5-5.1); Sodium Level 142 mmol/L (136-145); Triglycerides 104 mg/dL; Very Low Density Lipoprotein 21 mg/dL (5-40)
[2021-03-30 09:06] VITALS: BP 120/82; PULSE 75; RESP 16; TEMP 36.4; O2SAT 96
[2021-03-30 09:15] VITALS: PULSE 75
[2021-03-30] MEDS: Fludrocortisone Acetate 0.1 MG Tablet PO (09:15)
[2021-03-30] MEDS: Cholecalciferol (VIT D3) 25 MCG TABLET (1,000 UNITS) 50 MCG PO (09:15)
[2021-03-30] MEDS: Aspirin E.C. 81 MG Tablet PO (09:15)
[2021-03-30] MEDS: Metoprolol Tartrate 25 MG Tablet PO (09:15)
--- NOTE | 2021-03-30 10:48 | DCINST_ITS ---
Discharge Instructions Diet Discharge Diet: Low fat / Low cholesterol Activity Discharge Activity: Return to Normal Activity Dressing / Incision Call your doctor if you observe: Shortness of breath, Dizziness, Chest pain and Increased palpitations (irregular heartbeat) Follow Up Care Test Results: Test results from this visit will be discussed in further detail at your follow-up appointment, if applicable. Discharge Plan Admission Admit Date/Time: 03/28/21 22:29 Primary Reason for Your Visit: Supraventricular tachycardia Attending Provider: Kelli Sims Primary Care Provider: Thania Castrejon Instructions Additional Instructions / Restrictions: Continue heart monitor as previously ordered at discharge. Discharge Orders/Prescriptions Prescriptions: New metoprolol tartrate 25 mg Tablet 25 mg PO BID Qty: 60 RF: 0 Continued acetaminophen 325 mg tablet 325 mg PO Q4H PRN (Reason: Pain) RF: 0 aspirin [Adult Low Dose Aspirin] 81 mg tablet,delayed release (DR/EC) 81 mg PO DAILY RF: 0 cholecalciferol (vitamin D3) 50 mcg (2,000 unit) capsule 50 mcg PO DAILY RF: 0 ibuprofen [Advil] 200 mg tablet 400 mg PO Q4H PRN (Reason: Pain) RF: 0 Lactobacillus acidophilus 1.5 mg (250 million cell) capsule 100 mmu cells PO DAILY RF: 0 fludrocortisone 0.1 mg tablet 0.1 mg PO DAILY RF: 0 Referrals / Follow Up: Gaurav, electrophysiology [Other] - See Referral Note (Follow-up as scheduled in [address] Simmons. ) Thania Castrejon, DINING SERVICE INSPECTOR-C [Primary Care Provider] - In 1 Week Disposition Disposition (needs filled in before D/C Order can be placed): Home, Self Care
--- NOTE | 2021-03-30 10:57 | DS.PCM_ITS ---
Documented by User: Ruby Ellison NP, ALLA-C 03/30/21 11:02 Providers Date of Admission: 03/28/21 Date of Discharge: 03/30/21 Primary Care Physician: DM De La Fuente Reason For Visit: SYNCOPE, SVT Diagnosis Discharge Diagnosis (1) Syncope: Status: Acute Code(s): R55 - Syncope and collapse (2) History of PSVT (paroxysmal supraventricular tachycardia): Status: Acute Code(s): Z86.79 - Personal history of other diseases of the circulatory system (3) History of ventricular tachycardia: Status: Acute Code(s): Z86.79 - Personal history of other diseases of the circulatory system (4) Abnormal stress test: Status: Acute Code(s): R94.39 - Abnormal result of other cardiovascular function study Medications at Discharge Home Medications Lactobacillus acidophilus 1.5 mg (250 million cell) capsule 100 mmu cells PO DAILY 03/23/21 acetaminophen 325 mg tablet 325 mg PO Q4H PRN tab 03/23/21 aspirin 81 mg tablet,delayed release 81 mg PO DAILY 03/23/21 cholecalciferol (vitamin D3) 50 mcg (2,000 unit) capsule 50 mcg PO DAILY 03/23/21 fludrocortisone 0.1 mg tablet 0.1 mg PO DAILY tab 03/23/21 ibuprofen 200 mg tablet 400 mg PO Q4H PRN tab 03/23/21 metoprolol tartrate 25 mg PO BID #60 tab 03/30/21 Hospital Course Operations None Procedures Cardiac catheterization and Nuclear stress test Summary of Care Provided Minutes Spent on Discharge: 35 Hospital Course: Patient is a 55-year-old female admitted 03/28/2021 due to palpitations and left-sided chest burning. 1. Paroxysmal SVT/atrial tachycardia/ventricular tachycardia-recent admission at [facility] where EP was consulted, Dr. Simmons. Echo at outside facility with normal EF. 48-hour Holter monitor revealed short runs of ectopic atrial tachycardia as well as 2 short runs of 4 and 6 beat wide complex ventricular tachycardia. She was not discharged on antiarrhythmic or rate control regimen. Cardiology consulted during admission. Patient underwent stress test which was found to be abnormal. She further underwent diagnostic cardiac catheterization and due to concern for underlying CAD contributing to arrhythmia. Heart cath demonstrated nonobstructive coronary arteries. Patient was initiated on metoprolol 25 mg twice daily. TSH, mag normal. Troponin negat steve. Patient will follow up with [place] cardiology as scheduled in 1 week. 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 2. Syncope-suspect related to #1 also with recent diagnosis orthostatic hypotension. Recent echo with normal EF. 3. Orthostatic hypotension-recently placed on Florinef. Repeat orthostatic vitals on admission negative. 4. Benign thyroid nodule-outpatient work-up unremarkable. Cristian's ruled out. Physical Exam Const alert, oriented x3 and no apparent distress Orientation / Consciousness: awake, oriented to person, oriented to place and oriented to time HEENT normocephalic and moist oral mucous membranes Eyes PERRL, EOMs intact bilaterally and conjunctivae normal Neck no lymphadenopathy Resp normal respiratory effort and clear to auscultation bilaterally Cardio regular rate, regular rhythm and no murmurs Peripheral Pulses: pulses 2+ throughout GI normal to inspection, nondistended, normoactive bowel sounds, non-tender and non-distended Extremity normal to inspection Skin no rashes or lesions noted Lesions: no lesions Rashes: no rashes Trauma: no lacerations or abrasions Neuro CN's II-XII intact bilaterally, no focal motor deficits, no sensory deficits noted and deep tendon reflexes 2+ bilaterally Psych mental status grossly normal and affect normal Patient seen and examined prior to discharge. Physical assessment as noted abo ve. Patient is stable for discharge with follow up recommendations as noted above. This patient was seen by DM Bird under the supervision of Dr. Sims. Weight / BMI Weight Weight: 218 lb 4.122 oz Body Mass Index (BMI) 44.0 ABG / Lab / Microbiology Data Result Diagrams: 03/30/21 05:50 03/30/21 05:50 Laboratory: Laboratory Results - last 24 hr 03/29/21 13:41: Urine Test Negative 03/30/21 05:50: WBC 5.0, RBC 4.40, Hgb 11.9 L, Hct 37.7, MCV 85.7, MCH 27.0, MCHC 31.6 L, RDW Std Deviation 41.4, RDW Coeff of Gunner 13.2, Plt Count 223, MPV 9.8, Immature Gran % (Auto) 0.200, Neut % (Auto) 65.7, Lymph % (Auto) 20.0, [place] % (Auto) 8.9, Eos % (Auto) 4.4, Baso % (Auto) 0.8, Absolute Neuts (auto) 3.3, Absolute Lymphs (auto) 1.01, Nucleated RBC % 0 03/30/21 05:50: Sodium 142, Potassium 3.6, Chloride 111 H, Carbon Dioxide 25.0, Anion Gap 6, BUN 9, Creatinine 0.61, Estim Creat Clear Calc 166.69, Est GFR (MDRD) Af Amer 132, Est GFR (MDRD) Non-Af 109, BUN/Creatinine Ratio 14.8, Glucose 81, Calcium 8.5, Total Bilirubin 0.50, Direct Bilirubin 0.07, AST 18, ALT 31, Alkaline Phosphatase 67, Total Protein 6.0 L, Albumin 2.6 L, Globulin 3.4, Triglycerides 104, Cholesterol 145, LDL Cholesterol 81, VLDL Cholesterol 21, HDL Cholesterol 43 D/C Instructions Discharge Diet: Low fat / Low cholesterol Call your doctor if you observe: Shortness of breath, Dizziness, Chest pain and Increased palpitations (irregular heartbeat) Meaningful Use Info Meaningful Use Diagnoses (Choose all that apply): None applicable Discharge Plan Admission Admit Date/Time: 03/28/21 22:29 Primary Reason for Your Visit: Supraventricular tachycardia Attending Provider: Kelli Sims Primary Care Provider: Thania Castrejon Instructions Additional Instructions / Restrictions: Continue heart monitor as previously ordered at discharge. Discharge Orders/Prescriptions Prescriptions: New metoprolol tartrate 25 mg Tablet 25 mg PO BID Qty: 60 RF: 0 Continued acetaminophen 325 mg tablet 325 mg PO Q4H PRN (Reason: Pain) RF: 0 aspirin [Adult Low Dose Aspirin] 81 mg tablet,delayed release (DR/EC) 81 mg PO DAILY RF: 0 cholecalciferol (vitamin D3) 50 mcg (2,000 unit) capsule 50 mcg PO DAILY RF: 0 ibuprofen [Advil] 200 mg tablet 400 mg PO Q4H PRN (Reason: Pain) RF: 0 Lactobacillus acidophilus 1.5 mg (250 million cell) capsule 100 mmu cells PO DAILY RF: 0 fludrocortisone 0.1 mg tablet 0.1 mg PO DAILY RF: 0 Referrals / Follow Up: Gaurav, electrophysiology [Other] - See Referral Note (Follow-up as scheduled in [address] Simmons. ) Thania Castrejon, FRUIT I FARMWORKER-C [Primary Care Provider] - In 1 Week Disposition Disposition (needs filled in before D/C Order can be placed): Home, Self Care Documented by User: Dr. Kelli Sims MD 03/30/21 16:47 Providers Date of Admission: 03/28/21 Reason For Visit: SYNCOPE, SVT Medications at Discharge Home Medications Lactobacillus acidophilus 1.5 mg (250 million cell) capsule 100 mmu cells PO DAILY 03/23/21 acetaminophen 325 mg tablet 325 mg PO Q4H PRN tab 03/23/21 aspirin 81 mg tablet,delayed release 81 mg PO DAILY 03/23/21 cholecalciferol (vitamin D3) 50 mcg (2,000 unit) capsule 50 mcg PO DAILY 03/23/21 fludrocortisone 0.1 mg tablet 0.1 mg PO DAILY tab 03/23/21 ibuprofen 200 mg tablet 400 mg PO Q4H PRN tab 03/23/21 metoprolol tartrate 25 mg PO BID #60 tab 03/30/21 ABG / Lab / Microbiology Data Result Diagrams: 03/30/21 05:50 03/30/21 05:50 Discharge Plan Admission Admit Date/Time: 03/28/21 22:29 Primary Reason for Your Visit: Supraventricular tachycardia Attending Provider: Kelli Sims Primary Care Provider: Thania Castrejon Instructions Additional Instructions / Restrictions: Continue heart monitor as previously ordered at discharge. Discharge Orders/Prescriptions Prescriptions: New metoprolol tartrate 25 mg Tablet 25 mg PO BID Qty: 60 RF: 0 Continued acetaminophen 325 mg tablet 325 mg PO Q4H PRN (Reason: Pain) RF: 0 aspirin [Adult Low Dose Aspirin] 81 mg tablet,delayed release (DR/EC) 81 mg PO DAILY RF: 0 cholecalciferol (vitamin D3) 50 mcg (2,000 unit) capsule 50 mcg PO DAILY RF: 0 ibuprofen [Advil] 200 mg tablet 400 mg PO Q4H PRN (Reason: Pain) RF: 0 Lactobacillus acidophilus 1.5 mg (250 million cell) capsule 100 mmu cells PO DAILY RF: 0 fludrocortisone 0.1 mg tablet 0.1 mg PO DAILY RF: 0 Referrals / Follow Up: Gaurav, electrophysiology [Other] - See Referral Note (Follow-up as scheduled in [address] Simmons. ) Thania Castrejon NP-C [Primary Care Provider] - In 1 Week Disposition Disposition (needs filled in before D/C Order can be placed): Home, Self Care Charges/Coding Addendum Addendum: Patient seen by Ruby CHAIDEZ under my supervision Patient is a 55-year-old female with past medical history as outlined was admitted to the ED with a complaint of palpitations. Patient had had a similar symptoms in the past and has been evaluated by an checkroom chief at [facility] and had a 24-hour Holter monitor done which showed sinus rhythm with PACs and PVCs and underlying atrial tachycardia with rapid ventricular rate as well as episodes of nonsustained ventricular tachycardia. Patient did have 30- day event monitor placed 4 days prior to admission. However her symptoms again occurred the night before admission so she called a one 800-number she was given she was told to come into the ED. she was admitted and managed for SVT. Cardiology was consulted. She had had a 2D echo on 03/16/2020 when she which showed EF of 50% with stage 1 diastolic dysfunction. She was started on p.o. metoprolol. She was continued on her fludrocortisone for hypotension. Cardiology was consulted and patient had a stress test on 03/29/2021 which was abnorm and compatible with an area of stress-induced myocardial ischemia in the mid to distal anteroseptal segments. She therefore had a cardiac cath which showed an EF of 55% and mild luminal irregularities in the mid LAD and proximal RCA, but circumflex and left main arteries were angiographically normal. Patient remained stable and was discharged home on p.o. metoprolol 25 mg twice daily. TSH and magnesium checked were normal. She is follow-up with her primary care doctor and is also to follow-up with cardiology and electrophysiology at [place]. She is to continue wearing the 30-day event monitor which had been ordered prior to her coming in and results of which are to be sent to her checkroom chief at [place]. Patient seen and examined prior to discharge. She had no complaints and felt well. Review of systems otherwise negative. Labs and vitals reviewed. Home medication reviewed and reconciled. O/E: Const alert, oriented x3 and no apparent distress Orientation / Consciousness: awake, oriented to person, oriented to place and oriented to time HEENT normocephalic and moist oral mucous membranes Eyes PERRL, EOMs intact bilaterally and conjunctivae normal Neck no lymphadenopathy Resp normal respiratory effort and clear to auscultation bilaterally Cardio regular rate, regular rhythm and no murmurs Peripheral Pulses: pulses 2+ throughout GI normal to inspection, nondistended, normoactive bowel sounds, non-tender and no n-distended Extremity normal to inspection Skin no rashes or lesions noted Lesions: no lesions Rashes: no rashes Trauma: no lacerations or abrasions Neuro CN's II-XII intact bilaterally, no focal motor deficits, no sensory deficits noted and deep tendon reflexes 2+ bilaterally Psych mental status grossly normal and affect normal Plan is for discharge home today. Rest as per Ruby Ellison FRUIT I FARMWORKER-C's note, which I have reviewed and endorsed. Visit Charges Inpatient E&M: [id number] Disch Hosp
--- NOTE | 2021-03-30 11:12 | PHA.DC.MC ---
Pharmacy Service has performed discharge medication reconciliation and counseling for this patient. 1. METOPROLOL TARTRATE 25MG PO BID The patient's discharge medication list was reviewed for discrepancies and discrepancies were resolved. Home Medications Lactobacillus acidophilus 1.5 mg (250 million cell) capsule 100 mmu cells PO DAILY 03/23/21 acetaminophen 325 mg tablet 325 mg PO Q4H PRN tab 03/23/21 aspirin 81 mg tablet,delayed release 81 mg PO DAILY 03/23/21 cholecalciferol (vitamin D3) 50 mcg (2,000 unit) capsule 50 mcg PO DAILY 03/23/21 fludrocortisone 0.1 mg tablet 0.1 mg PO DAILY tab 03/23/21 ibuprofen 200 mg tablet 400 mg PO Q4H PRN tab 03/23/21 metoprolol tartrate 25 mg PO BID #60 tab 03/30/21 The patient was counseled on the following discharge medications and changes in medications for homegoing were reviewed. The Reason for Use, instructions for use, and potential side effects were reviewed for all new medications. The patient's questions regarding all of their medications were answered. The patient was able to verbally demonstrate an understanding of their discharge medications.
== END 2021-03-30 10:51 | disposition home or self-care (01) ==
LOC: ED 21:56 → PCU 22:38
PROVIDERS: Internal Medicine Cardiovascular Disease; Nurse Practitioner Family; Admitting Provider Hospitalist; Emergency Provider Emergency Medicine; PCP Nurse Practitioner Family; Visit Provider Student in an Organized Health Care Education/Training Program
DX: I95.1 Orthostatic hypotension (principal); R07.89 Other chest pain; I47.1 Supraventricular tachycardia; R94.39 Abnormal result of other cardiovascular function study; R00.2 Palpitations; R06.02 Shortness of breath; I49.1 Atrial premature depolarization; E04.1 Nontoxic single thyroid nodule; I48.91 Unspecified atrial fibrillation; I49.3 Ventricular premature depolarization; I47.2 Ventricular tachycardia; I10 Essential (primary) hypertension; Z79.899 Other long term (current) drug therapy; Z79.82 Long term (current) use of aspirin; Z95.0 Presence of cardiac pacemaker
CPT/HCPCS: 36415; 71045; 78452; 80048; 80061; 80076; 81025; 83735; 84443; 84484; 85025; 93005; 93017; 93458; 96361; 96374; 99152; 99153; 99218; 99285; A9500; J7030; Q9967; A4216; C1769; C1894; G0378; J2785

== ENCOUNTER → 2021-04-12 08:46 | Outpatient (CLI) | payer MEDICAID, SELFPAY ==
[2021-03-23 11:27] VITALS: BMI 42.9
--- NOTE | 2021-04-12 08:48 | CDU_ITS ---
Reason For Study: SYNCOPE Rt. Velocities/BP Lt. Velocities/BP Prox CCA 77.7/22.9 cm/sec. Prox CCA 110.2/27.8 cm/sec. Mid CCA 72.5/23.0 cm/sec. Mid CCA 63.2/19.7 cm/sec. Dist CCA 58.2/19.0 cm/sec. Dist CCA 69.8/22.6 cm/sec. Prox ICA 51.9/19.7 cm/sec. Prox ICA 68.0/20.8 cm/sec. Mid ICA 80.1/39.4 cm/sec. Mid ICA 63.6/21.9 cm/sec. Dist ICA 72.4/28.5 cm/sec. Dist ICA 68.0/28.5 cm/sec. Rt. ICA/CCA = 80.1/77.7=1.0. Lt. ICA/CCA = 68.0/69.8=1.0. Prox ECA 93.4/19.0 cm/sec. Prox ECA 80.1/14.2 cm/sec. Rt. Vert. 33.9/11.3 cm/sec. Lt. Vert. 51.5/19.7 cm/sec. Right Extracranial There is intimal thickening but no significant atherosclerotic plaque noted in the right common carotid artery. There is no significant atherosclerotic plaque noted in the right internal carotid artery. There is no significant atherosclerotic plaque noted in the right external carotid artery. Antegrade flow is noted in the right vertebral artery. Left Extracranial There is intimal thickening but no significant atherosclerotic plaque noted in the left common carotid artery. There is no significant atherosclerotic plaque noted in the left internal carotid artery. There is no significant atherosclerotic plaque noted in the left external carotid artery. Antegrade flow is noted in the left vertebral artery. Procedure Carotid Duplex [id number]. This is a Carotid Duplex examination using B-mode, color flow and specral Doppler. The exam was diagnostic. Exam performed in department. VL/Carotid Duplex Ultrasound Interpretation Summary Mild (<50%) stenosis right extracranial internal carotid. Mild (<50%) stenosis left extracranial internal carotid. Flow within the vertebral arteries is antegrade bilaterally. Ordering Physician: Chandra Chiang Referring Physician: Thania Castrejon Performed By: Angeline Lugo, ANGELA, RVT
== END ==
PROVIDERS: PCP Nurse Practitioner Family; Referring Provider Internal Medicine Cardiovascular Disease; Visit Provider Internal Medicine Cardiovascular Disease
DX: R55 Syncope and collapse (principal); I49.3 Ventricular premature depolarization; Z86.79 Personal history of other diseases of the circulatory system
CPT/HCPCS: 93880

== ENCOUNTER → 2021-05-19 15:11 | Outpatient (CLI) | payer MEDICAID, SELFPAY ==
--- NOTE | 2021-05-19 15:14 | BI_ITS ---
MAMMOGRAPHY - BILATERAL SCREENING 3-D TOMOSYNTHESIS REASON FOR EXAM: Female, 55 years old. screening for breast cancer PERTINENT HISTORY: No significant family history. TECHNIQUE: 2-D mammograms and 3-D Tomosynthesis of the breast (s) were performed. CAD was performed. COMPARISON: 05/05/2020 FINDINGS: The breast composition is composed of scattered fibroglandular density. Scattered benign calcifications are seen. No dense spiculated masses or suspicious microcalcifications are identified. No architectural distortion is identified. There is no skin thickening or retraction. There has been no significant change since the prior study. BI/SCRN MAMM (CAD)W/JOSE MIGUEL BILAT IMPRESSION: No mammographic signs of malignancy. Routine yearly mammograms recommended. ASSESSMENT CATEGORY: BIRADS Category 1: Negative. A letter regarding these results will be sent to the patient by the facility within 30 days. FOLLOW UP RECOMMENDATION: Yearly follow up mammogram recommended. (A) Approximately 10% of breast cancers are not detected by mammography. A normal mammogram should not delay biopsy of a clinically suspicious abnormality. Electronically Signed: Jose C Dong MD at 18:16 EDT Tel , Service support ,
--- NOTE | 2021-05-19 15:37 | US_ITS ---
INDICATION: left thyroid nodule EXAMINATION: Ultrasound US Thyroid (eg thyroid, parathyroid, parotid) TECHNIQUE: Villagomez scale and color doppler imaging was performed of the thyroid gland. COMPARISON: None. FINDINGS: RIGHT THYROID LOBE: The right lobe of the thyroid gland is prominent in size demonstrates homogeneous echogenicity is unremarkable vascularity, The right lobe of the thyroid gland measures 5.4 x 2.3 x 2.2 cm. There is a single nodule visualized in the midpole of the right lobe, this nodule is mixed with predominant cystic consistency measuring 0.7 x 0.6 x 0.4 cm and a 0.3 cm solid component visualized in its superior aspect, regular margins with peripheral nodular vascularity is demonstrated. #1- Location: Midpole. Size: 0.7 x 0.6 x 0.4 cm Composition: 1 Echogenicity: 1 Shape: 0 Margins: 0 Echogenic Foci: 0 Total points 2, TIRADS level TR2 LEFT THYROID LOBE: The left lobe of the thyroid gland is enlarged in size demonstrating homogenous echogenicity and unremarkable vascularity. The left lobe of the thyroid gland measures 6.9 x 3.5 x 2.7 cm. 2 nodules are visualized within the left lobe. A mixed, solid/cystic nodule is visualized in the mid pole measuring 3.9 x 3.5 x 2.6 cm demonstrating well-demarcated regular smooth margins. #2- Location: Midpole of the left lobe. Size: 3.9 x 3.5 x 2.6 mm. Composition: 1 Echogenicity: 1 Shape: 0 Margins: 0 Echogenic Foci: 0 Total points 2, TIRADS level TR2 A mixed solid/cystic nodule is visualized in the lower pole of the left lobe demonstrating ovoid configuration and irregular/indistinct margins measuring 1.9 x 1.2 x 1.1 cm. #3- Location: Lower pole of the left lobe. Size: 1.9 x 1.2 x 1.1 cm Composition: 1 Echogenicity: 1 Shape: 0 Margins: 0 Echogenic Foci: 0 Total points 2, TIRADS level TR2 ISTHMUS: The isthmus demonstrates homogenous echogenicity and measures 0.5 cm in AP diameter. No evidence of nodules within the isthmus. US/Thyroid IMPRESSION: Enlargement of both lobes of the thyroid gland. A 0.7 cm TR 2 nodule is visualized in the midpole of the right lobe. A 3.9 cm TR 2 nodule visualized in the midpole of the left lobe. A 1.9 cm TR 2 nodule in the lower pole of the left lobe. TI-RADS follow up recommendations: TR1: Benign (0pts) No FNA biopsy. TR2: Not suspicious (2 pts) No FNA biopsy. TR3: Mildly suspicious (3 pts) FNA biopsy if nodule at least 2.5cm; follow if at least 1.5cm. TR4: Moderately suspicious (4-6 pts) FNA biopsy if nodule at least 1.5cm; follow if at least 1 cm. TR5: Highly suspicious (at least 7 pts) FNA if nodule at least 1cm; follow if at least 0.5cm. Electronically Signed: Nixon Gallagher MD at 8:55 EDT Tel , Service support ,
== END ==
PROVIDERS: PCP Nurse Practitioner Family; Visit Provider Obstetrics & Gynecology
DX: Z12.31 Encounter for screening mammogram for malignant neoplasm of breast (principal); E04.1 Nontoxic single thyroid nodule; R30.0 Dysuria
CPT/HCPCS: 76536; 77063; 77067; 87086

== ENCOUNTER 2021-06-10 09:43 | Emergency (ER) | payer MEDICAID, SELFPAY ==
[2021-06-10 09:44] VITALS: BP 110/79; PULSE 82; RESP 16; TEMP 36.2; O2SAT 99; BMI 43.4
--- NOTE | 2021-06-10 10:07 | EDS_ITS ---
HPI History of Present Illness Chief Complaint: Headache Informant: patient Onset/Context/Timing Onset: Yesterday Context: Gradual Onset Timing: Continuous Quality: Aching Location: Generalized Worsened by: Nothing Relieved by: Motrin Narrative Narrative: Patient presents with fever and body aches that began yesterday. Patient states her fever was up to 102 at home. Patient states she took some Motrin which has helped with this. Patient states the Motrin also help with her body aches. Patient states she feels achy all over. Patient admits to a cough with some white sputum. Patient states that yesterday she also had sore throat and ear pain. Patient also admits to a headache. Patient admits to nausea but denies any vomiting. [facility] Medical History History of left heart catheterization (LHC) (~03/29/21) History of PSVT (paroxysmal supraventricular tachycardia) History of ventricular tachycardia Multinodular goiter Premature atrial contraction Premature ventricular contraction Thyroid nodule Home Medications Lactobacillus acidophilus 1.5 mg (250 million cell) capsule 100 mmu cells PO DAILY 03/23/21 [History Last Taken Unknown] acetaminophen 325 mg tablet 325 mg PO Q4H PRN tab 03/23/21 [History Last Taken Unknown] aspirin 81 mg tablet,delayed release 81 mg PO DAILY 03/23/21 [History Last Taken 03/27/21] cholecalciferol (vitamin D3) 50 mcg (2,000 unit) capsule 50 mcg PO DAILY 03/23/21 [History Last Taken 03/28/21] fludrocortisone 0.1 mg tablet 0.1 mg PO DAILY tab 03/23/21 [History Last Taken Unknown] ibuprofen 200 mg tablet 400 mg PO Q4H PRN tab 03/23/21 [History Last Taken Unknown] metoprolol tartrate 25 mg PO BID #60 tab 03/30/21 [Rx Last Taken Unknown] amitriptyline 25 mg tablet tablet PO 05/17/21 [History Last Taken Unknown] buspirone 7.5 mg tablet ea PO 05/17/21 [History Last Taken Unknown] clonazepam 0.5 mg tablet 0.5 mg PO QHS tab 05/17/21 [History Last Taken Unknown] flecainide 100 mg tablet tablet PO 05/17/21 [History Last Taken Unknown] ondansetron HCl 4 mg tablet 4 mg PO PRN tab 05/17/21 [History Last Taken Unknown] rivaroxaban 20 mg tablet 20 mg PO DAILY tab 05/17/21 [History Last Taken Unknown] sumatriptan succinate 50 mg tablet tablet PO 05/17/21 [History Last Taken Unknown] Allergy/AdvReac Type Severity Reaction Status Date / Time No Known Allergies Allergy Verified 06/10/21 09:48 Family History Father Heart disease Mother Heart disease Surgical History S/P Social History Smoking Status: Never smoker alcohol intake: never substance use type: does not use caffeine: Yes what type of physical activity do you participate in: walking, aerobics and other details: stepper frequency: 5-6 times per week do you feel safe at home: Yes additional social history: - Landon [facility] ED Constitutional Constitutional ED: Reports fever(s); Denies chills Eyes Eyes: Denies blurry vision or change in vision ENT ENT ED: Reports ear pain and sore throat; Denies rhinorrhea Cardiovascular Cardiovascular: Denies chest pain or palpitations Respiratory/Chest Respiratory/Chest: Reports cough and sputum; Denies dyspnea Gastrointestinal Gastrointestinal: Reports nausea; Denies vomiting Genitourinary Genitourinary ED: Denies dysuria or hematuria Musculoskeletal Musculoskeletal: Reports myalgias; Denies neck pain Integumentary Denies abscess or rash Neurologic Neurologic: Reports headache(s); Denies weakness Allergic/Immunologic Allergic/Immunologic ED: Denies mouth swelling or urticaria EXAM Physical Exam Const Vital Signs: 06/10/21 09:44 06/10/21 10:25 06/10/21 10:28 Temperature 97.1 F L Temperature Source Temporal Pulse Rate 82 Respiratory Rate 16 Respiratory Effort Normal Blood Pressure 110/79 86/59 L Blood Pressure Mean 89 68 Pulse Ox 99 Oxygen Delivery Method Room Air 06/10/21 11:36 Temperature Temperature Source Pulse Rate Respiratory Rate Respiratory Effort Blood Pressure 93/54 L Blood Pressure Mean 67 Pulse Ox Oxygen Delivery Method Positive well nourished and well developed General Appearance ED: well developed HEENT Reports moist mucous membranes Neck supple and no JVD Resp normal respiratory effort and clear to auscultation bilaterally Cardio regular rate, regular rhythm and no murmurs GI normal to inspection, nondistended, normoactive bowel sounds and non-tender Palpation: soft Extremity normal to inspection General Extremety ED: Negative for edema or tenderness General Extremity: Negative for edema Neuro oriented x3, CN's II-XII intact bilaterally and no sensory deficits noted Sensorium / Orientation: alert Motor Exam: strength 5/5 throughout Psych mental status grossly normal Skin no rashes or lesions noted MDM MDM MDM Narrative Medical decision making narrative: Patient was given IV fluids. COVID-19 rapid antigen was obtained and was positive. CBC was within normal limits. Comprehensive metabolic profile was essentially within normal limits. Lactate was slightly elevated at 2.1. Portable 1 view chest x-ray was obtained. On my interpretation, lung gotti are clear. There is normal cardiac silhouette. Bony thorax is normal. There is no acute process noted. Radiologist also interpreted the x-ray and agrees. Patient was advised of her findings. Patient was instructed to drink fluids at home. Patient was instructed to take Tylenol or ibuprofen as needed for any pain or fever. Patient was instructed to follow- up with her primary care physician in 3 days as scheduled. Patient and family understood and were agreeable with the plan. All questions were answered. Lab Data Attestation: I reviewed the patient's lab results. Labs: Laboratory Results - last 24 hr 06/10/21 06/10/21 06/10/21 10:21 10:21 10:21 WBC 4.6 RBC 4.93 Hgb 13.3 Hct 41.4 MCV 84.0 MCH 27.0 MCHC 32.1 RDW Std Deviation 41.6 RDW Coeff of Gunner 13.5 Plt Count 206 MPV 9.3 Immature Gran % (Auto) 0.200 Neut % (Auto) 53.4 Lymph % (Auto) 25.4 Castro % (Auto) 20.6 H Eos % (Auto) 0.0 Baso % (Auto) 0.4 Absolute Neuts (auto) 2.4 Absolute Lymphs (auto) 1.16 Nucleated RBC % 0 Sodium 133 L Potassium 3.6 Chloride 101 Carbon Dioxide 23.0 Anion Gap 9 BUN 12 Creatinine 1.12 H Estim Creat Clear Calc 89.43 Est GFR (MDRD) Af Amer 65 Est GFR (MDRD) Non-Af 54 L BUN/Creatinine Ratio 10.7 Glucose 83 Lactic Acid 2.1 H* Calcium 8.6 Total Bilirubin 0.30 AST 26 ALT 21 Alkaline Phosphatase 84 Total Protein 7.4 Albumin 3.2 Globulin 4.2 Albumin/Globulin Ratio 0.8 L Radiography Chest X-Ray - ED: 1 View, Read by ED Physician, Read by Radiologist and Normal Diagnostic Testing: Clinical Impression(s) from Imaging Studies Chest X-Ray 06/10/21 10:30 IMPRESSION: Normal x-ray examination of the chest. Electronically Signed: Cezar Pickett MD at 10:48 EDT , Service support , Discharge Plan Triage Chief Complaint: Headache ED Provider: Basilio Joe Dx/Rx/DC Orders Clinical Impression: COVID-19 Instructions: Coronavirus Disease 2019 (COVID-19): Caring for Yourself or Others Prescriptions: No Action flecainide 100 mg tablet PO RF: 0 amitriptyline 25 mg tablet PO RF: 0 sumatriptan succinate 50 mg tablet PO RF: 0 Xarelto 20 mg tablet 20 mg PO DAILY RF: 0 buspirone 7.5 mg tablet PO RF: 0 ondansetron HCl 4 mg tablet 4 mg PO PRNRF: 0 clonazepam 0.5 mg tablet 0.5 mg PO QHS RF: 0 metoprolol tartrate 25 mg Tablet 25 mg PO BID Qty: 60 RF: 0 acetaminophen 325 mg tablet 325 mg PO Q4H PRN (Reason: Pain) RF: 0 aspirin [Adult Low Dose Aspirin] 81 mg tablet,delayed release (DR/EC) 81 mg PO DAILY RF: 0 cholecalciferol (vitamin D3) 50 mcg (2,000 unit) capsule 50 mcg PO DAILY RF: 0 ibuprofen [Advil] 200 mg tablet 400 mg PO Q4H PRN (Reason: Pain) RF: 0 Lactobacillus acidophilus 1.5 mg (250 million cell) capsule 100 mmu cells PO DAILY RF: 0 fludrocortisone 0.1 mg tablet 0.1 mg PO DAILY RF: 0 Primary Care Provider: Nadia Freire NP Referrals: Nadia Freire NP, [employer] CLERK-[employer] [Primary Care Provider] - Keep Jamaal appointment Disposition Disposition: Home, Self Care
[2021-06-10 10:28] VITALS: BP 86/59
--- NOTE | 2021-06-10 10:30 | RAD_ITS ---
STUDY: X-RAY CHEST REASON FOR EXAM: Female, 55 years old. Cough TECHNIQUE: Single AP portable view of the chest. COMPARISON: Comparison is made with prior study 03/28/2021. FINDINGS: EKG electrodes are seen. Stable mild elevation of the right hemidiaphragm. The lungs are clear. There is no demonstrated pleural abnormality. Normal size heart. Normal mediastinum and jourdan. Normal visualized pulmonary arteries. Normal visualized aortic arch and descending thoracic aorta. There are diffuse degenerative changes of the visualized thoracic spine. Normal visualized ribs, clavicles, and shoulders. There is no demonstrated abnormality of the visualized soft tissue structures of the upper abdomen. RAD/Chest 1 View (Portable) IMPRESSION: Normal x-ray examination of the chest. Electronically Signed: Cezar Pickett MD at 10:48 EDT , Service support ,
[2021-06-10 10:34] LABS: Absolute Lymphocyte Count 1.16 X10^3/uL (0.83-4.51); Absolute Neutrophil Count 2.4 X10^3/uL (2.0-7.7); Basophil# 0.02 X10^3/uL; Basophil% 0.4 % (0-1); Hematocrit 41.4 % (37-47); Hemoglobin 13.3 g/dL (12.0-15.0); Lymphocyte # 1.16 X10^3/ul (0.83-4.51); Lymphocyte % 25.4 % (19-41); Mean Corp Hgb Conc 32.1 g/dL (32-36); Mean Platelet Vol. 9.3 fl (6.2-12.0); Monocyte# 0.94 X10^3/uL; Monocyte% 20.6 % (0-10); NRBC Flagged by Analyzer 0 % (0-5); Neutrophil # 2.43 X10^3/uL (2.7-7.7); Neutrophil % 53.4 % (47-70); Platelet Count 206 K/mm3 (150-450); RBC Distribution Width CV 13.5 % (11.6-14.6); RBC Distribution Width SD 41.6 fl (35.1-43.9); Red Blood Count 4.93 M/mm3 (4.2-5.4); White Blood Count 4.6 K/mm3 (4.4-11.0)
[2021-06-10 10:57] LABS: ALB/GLOB Ratio 0.8 RATIO (0.9-2.4); AST(SGOT) 26 U/L (15-37); Alanine Aminotransfer ALT/SGPT 21 U/L (13-56); Albumin, Serum 3.2 g/dL (3.2-5.0); Alkaline Phosphatase 84 U/L (45-117); Anion Gap 9 (5-15); BUN 12 mg/dL (7-18); BUN/Creat Ratio 10.7 RATIO (10-20); Calcium,Total 8.6 mg/dL (8.5-10.1); Chloride 101 mmol/L (98-107); Creatinine, Serum 1.12 mg/dL (0.55-1.02); EST Glomerular Filtration Rate 54 mL/min (>60); Est Glom Filt Rate - Afr Amer 65 mL/min (>60); Estimated Creatinine Clearance 89.43 ml/min; Globulin 4.2 g/dL (2.2-4.2); Glucose 83 mg/dL (74-106); Potassium 3.6 mmol/L (3.5-5.1); Protein, Total 7.4 g/dL (6.4-8.2); Sodium Level 133 mmol/L (136-145)
[2021-06-10 11:04] LABS: Lactic Acid 2.1 mmol/L (0.4-1.9)
[2021-06-10 11:36] VITALS: BP 93/54
[2021-06-10 12:37] VITALS: BP 90/58; PULSE 71; RESP 16; O2SAT 98
[2021-06-10 14:26] LABS: Reflex Lactate? Y
== END 2021-06-10 12:38 | disposition home or self-care (01) ==
PROVIDERS: Emergency Provider Emergency Medicine; PCP Nurse Practitioner Family
DX: U07.1 COVID-19 (principal); I47.1 Supraventricular tachycardia; I49.1 Atrial premature depolarization; Z79.01 Long term (current) use of anticoagulants; Z79.82 Long term (current) use of aspirin; Z79.899 Other long term (current) drug therapy
CPT/HCPCS: 71045; 80053; 83605; 85025; 87426; 96360; 99283; J7040; A4216

== ENCOUNTER → 2021-07-22 | Outpatient (CLI) | payer MEDICAID, SELFPAY ==
--- NOTE | 2021-07-22 | FLU_PTH ---
PATIENT: MARILEE DALAL LOC: [facility] U#:[id number] AGE/SX: 55/F ROOM: RE07/22/[address]: Dr. aNrinder Sommer MD : 1965 BED: DIS: 07/22/2021 SPEC #: [id number] RECD: 07/25/21 13:59 STATUS: ANKITA EMANUEL #: [id number] ISSA: 07/22/21 00:[address]: Narinder Sommer DEPT: CYTOLOGY RECD BY: Curtis Morejon ENTERED: 07/25/21 13:59 SP TYPE: Fluid OTHR DR: DM Grissom Tissues: A - Thyroid gland, NOS B - Thyroid gland, NOS C - Thyroid gland, NOS Procedures: Special Stain Group II Surgery Specimen Level IV Cytospin Fluid HEADER OPERATION: Left thyroid fine needle aspiration PRE-OP DIAGNOSIS: Multiple bilateral thyroid nodules TISSUE SUBMITTED: A ? Left thyroid nodule fluid, B ? Left thyroid nodule x4 slides, C ? Left thyroid fluid aspirate x2 slides DIAGNOSIS CYTOLOGY A. Fine needle aspiration, left thyroid nodule (cytospin and cell block): Adequate for evaluation. Consistent with benign follicular nodule with cystic change. B. Fine needle aspiration, left thyroid nodule (smears): Macrophages consistent with benign cyst contents. See comment. C. Fine needle aspiration, left thyroid nodule (smears). Negative for malignant cells. See comment. AM:jennifer 07/26/2021 COMMENT B. The paucity of follicular cells in the sample makes it nondiagnostic. Clinical correlation is suggested. C. The absence of follicular cells makes the sample nondiagnostic. Clinical correlation is suggested. CYTOLOGY STUDY Slides are reviewed. CYTOLOGY GROSS A - Received is 35 ml of pink CytoLyt fluid labeled with the patient's name and and designated per the requisition as left thyroid. Submitted for cytology preparation including cell block. B - Received are four smears labeled with the patient's name and designated per the requisition as left thyroid nodule. Submitted for staining. C - Received are two smears labeled with the patient's name and designated per the requisition as left thyroid nodule. Submitted for staining. / jennifer 07/25/2021 TC:5 CPT: 92692, 27151, 01740 x2
== END | disposition home or self-care (01) ==
LOC: LABSPEC 16:37
PROVIDERS: PCP Nurse Practitioner Family; Visit Provider Surgery
DX: E04.2 Nontoxic multinodular goiter (principal)
CPT/HCPCS: 88108; 88305; 88313

== ENCOUNTER 2021-10-18 09:25 | Outpatient (CLI) | payer MEDICAID, SELFPAY ==
[2021-10-18 09:53] LABS: Absolute Lymphocyte Count 2.13 X10^3/uL (0.83-4.51); Absolute Neutrophil Count 4.3 X10^3/uL (2.0-7.7); Basophil# 0.06 X10^3/uL; Basophil% 0.8 % (0-1); Eosinophil# 0.47 X10^3/uL; Eosinophils% 6.1 % (0-5); Hematocrit 42.6 % (37-47); Hemoglobin 13.7 g/dL (12.0-15.0); Lymphocyte # 2.13 X10^3/ul (0.83-4.51); Lymphocyte % 27.7 % (19-41); Mean Corp Hgb Conc 32.2 g/dL (32-36); Mean Corpuscular Hgb 27.6 pg (27.0-32.0); Mean Corpuscular Volume 85.7 fL (81-99); Mean Platelet Vol. 9.5 fl (6.2-12.0); Monocyte% 9.1 % (0-10); NRBC Flagged by Analyzer 0 % (0-5); Neutrophil # 4.31 X10^3/uL (2.7-7.7); Platelet Count 310 K/mm3 (150-450); RBC Distribution Width CV 13.7 % (11.6-14.6); RBC Distribution Width SD 42.7 fl (35.1-43.9); Red Blood Count 4.97 M/mm3 (4.2-5.4); White Blood Count 7.7 K/mm3 (4.4-11.0)
[2021-10-18 11:01] LABS: Anion Gap 3 (5-15); BUN 12 mg/dL (7-18); BUN/Creat Ratio 14.2 RATIO (10-20); Calcium,Total 9.1 mg/dL (8.5-10.1); Chloride 104 mmol/L (98-107); Creatinine, Serum 0.84 mg/dL (0.55-1.02); EST Glomerular Filtration Rate 75 mL/min (>60); Est Glom Filt Rate - Afr Amer 90 mL/min (>60); Glucose 95 mg/dL (74-106); Magnesium 2.7 mg/dL (1.6-2.6); Potassium 4.3 mmol/L (3.5-5.1); Sodium Level 140 mmol/L (136-145); Thyroid Stim Hormone (TSH) 1.53 uIU/mL (0.358-3.74)
== END 2021-10-18 23:59 | disposition home or self-care (01) ==
LOC: LAB 09:27
PROVIDERS: PCP Nurse Practitioner Family; Referring Provider Nurse Practitioner Gerontology; Visit Provider Nurse Practitioner Gerontology
DX: I49.1 Atrial premature depolarization (principal); Z86.79 Personal history of other diseases of the circulatory system
CPT/HCPCS: 36415; 80048; 83735; 84439; 84443; 85025

== ENCOUNTER 2021-12-21 06:41 | Day surgery (SDC) | payer MEDICAID, SELFPAY ==
[2021-12-21 07:24] VITALS: BP 118/77; PULSE 67; RESP 16; TEMP 36.4; O2SAT 99; BMI 44.1
[2021-12-21] MEDS: Lactated Ringers 1,000 ML 30 ML IV (07:41)
--- NOTE | 2021-12-21 07:43 | HP.PCM_ITS ---
History and Physical Date of Admission: 12/21/21 Date of Service: 12/02/21 MR#:[id number]:[id number]: MARILEE DALAL [facility] #:[id number]:1965 Provider:Vince Schmid/Sex: 56/F [facility] Intake Visit Reasons: COLONOSCOPY Chief Complaint: Colonoscopy consult Allergies No Known Allergies Allergy (Verified 12/02/21 13:49) Medications Lactobacillus acidophilus 1.5 mg (250 million cell) capsule 100 mmu cells PO DAILY 03/23/21 [History Confirmed 12/02/21] acetaminophen 325 mg tablet 325 mg PO Q4H PRN tab 03/23/21 [History Confirmed 12/02/21] aspirin 81 mg tablet,delayed release 81 mg PO DAILY 03/23/21 [History Confirmed 12/02/21] cholecalciferol (vitamin D3) 50 mcg (2,000 unit) capsule 50 mcg PO DAILY 03/23/21 [History Confirmed 12/02/21] ibuprofen 200 mg tablet 400 mg PO Q4H PRN tab 03/23/21 [History Confirmed 12/02/21] clonazepam 0.5 mg tablet 0.5 mg PO QHS tab 05/17/21 [History Confirmed 12/02/21] amitriptyline 25 mg tablet 25 mg PO QHS tab 07/18/21 [History Confirmed 12/02/21] buspirone 7.5 mg tablet 7.5 mg PO PRN tab 07/18/21 [History Confirmed 12/02/21] sumatriptan succinate 50 mg tablet 50 mg PO PRN tab 07/18/21 [History Confirmed 12/02/21] flecainide 100 mg tablet 100 mg PO Q12H 10/18/21 [History Confirmed 12/02/21] metoprolol tartrate 25 mg tablet 12.5 mg PO BID tab 10/18/21 [History Confirmed 12/02/21] [facility] Medical History History of left heart catheterization (LHC) (~03/29/21) History of PSVT (paroxysmal supraventricular tachycardia) History of ventricular tachycardia Multinodular goiter Premature atrial contraction Premature ventricular contraction Thyroid nodule Surgical History S/P S/P thyroid biopsy (~07/2021) Family History Father Heart disease Mother Heart disease Social History Smoking Status: Never smoker alcohol intake: never substance use type: does not use caffeine: Yes what type of physical activity do you participate in: walking, aerobics and other details: stepper frequency: 5-6 times per week do you feel safe at home: Yes additional social history: - Landon Female Reproductive History Menstrual Ab spontaneous: 1 HPI HPI HPI: MARILEE DALAL, is a 56 F who presents to the office today for EGD and colonoscopy. Patient's never had previous endoscopies. Patient states she has bowel movements about every other day does state occasionally she will have black stools which can last from 3 days to a week patient denies taking any Pepto-Bismol or iron. Patient denies any recent melena however she has not keep track of exactly when she has it. Patient denies any chronic abdominal pain/nausea/vomiting/reflux. Patient's paternal uncle had metastatic colon cancer in his 70s unsure of exact age of diagnosis as he did initially have surgery. Patient does occasionally have discomfort at the rectum with bowel movements patient is unsure if she has hemorrhoids but does states she occasiona lly has with constipation which she will take MiraLAX for. Patient states that when she eats tomatoes she does have some reflux she has been on omeprazole 20 mg p.o. daily [id number] recently. ROS General General: Yes weight change and fatigue; No appetite, colon cancer or breast cancer HEENT HEENT: Yes difficulty swallowing and swollen glands; No eye injury, eye surgery or hoarseness Endo Endocrine: Yes thyroid disease; No diabetes mellitus, thyroid cancer, Hair loss, heat intolerance or cold intolerance Skin Skin: No rash or changing moles Musc Musculoskeletal: Yes back problems and arthritis; No rheumatoid arthritis, gout or joint pain Cardio Cardiovascular: Yes heart disease; No murmur, pacemaker, atrial fibrillation, high blood pressure, heart attack, heart stent, palpitations, shortness of breat with exertion or chest pain Psych Psychiatric: Yes depression and anxiety; No hearing voices Resp Respiratory: Yes shortness of breath, No sleep apnea, No cough, No COPD, No asthma, No emphysema and No wheezing Gastro Gastrointestinal: Yes abdominal pain, No nausea or vomiting, No diarrhea, No constipation, No blood in stool, No acid reflux, Yes hemorrhoids, No ulcers, No gallbladder problem and Yes black,tarry stools Pawan Hematologic: Yes blood thinners, No blood disorders, No bleeding, No anemia and No blood clots Neuro Neurologic: No abnormal speech, No confusion, Yes numbness and Yes tingling Exam Const General: cooperative, healthy appearing, comfortable and no acute distress Neck Neck: normal visual inspection Resp Effort & Inspection: normal respiratory effort Cardio Rate: regular rate GI Inspection: non-distended Palpation: soft, no guarding and nontender Skin General: no rashes or lesions noted Neuro General: patient oriented x3 Psych Affect: normal affect Assessment and Plan Assessment and Plan (1) GERD (gastroesophageal reflux disease): Status: Acute Comment: Patient complains of reflux symptoms that are overall well controlled with as needed use of omeprazole. However, given this complaint and those of rather regular nausea and bloating, I have recommended patient consider diagnostic EGD exam for the same day as her colonoscopy. (2) Complaint of melena: Status: Acute Comment: follows up to discuss colonoscopy. She states that she continues to experience occasional black and tarry stools. She initially states that she has not experienced one recently, but then admits to 1 in the last month. (3) Screening for colon cancer: Status: Acute Plan - Dr. Ade Wells MD: We will have patient take omeprazole 40 mg p.o. daily we will send a prescription to her pharmacy. Plan on an EGD to evaluate for reflux and the occasional melena as well as a screening colonoscopy. I have discussed the above with the patient. I have offered the patient EGD and colonoscopy for evaluation. I have explained the risks/benefits of the procedure and described the procedure. I have discussed the risks with the patient, including but not limited to: infection, bleeding, perforation of the GI tract requiring emergency surgery, inability to complete the procedure, injury to any internal organs, complications of anesthesia, etc. - the patient understands and agrees to proceed. I have answered all the patient's questions to the patient's satisfaction and the patient has no further questions. The patient has been given instructions for the colon cleansing preparation. 1 day of clears, MiraLAX Dulcolax split prep. Ade Wells M.D. Pager: [phone] [facility] [address] [place] [address], [address] [place] [address] Office: [phone] Coding Level of Care Code Off vis,est,level 3 Diagnoses GERD (gastroesophageal reflux disease) K21.9 Complaint of melena K92.1 Screening for colon cancer Z12.11 12/02/21 1416<Electronically signed by Ade Wells MD>Date Ade Wells MD
--- NOTE | 2021-12-21 08:00 | EGD_PTH ---
PATIENT: MARILEE DALAL LOC: EN U#:[id number] AGE/SX: 56/F ROOM: RE12/21/[address]: Dr. Ade Wells MD : 1965 BED: DIS: 12/21/2021 SPEC #: [id number] RECD: 12/21/21 11:02 STATUS: ANKITA EMANUEL #: [id number] ISSA: 12/21/21 08:[address]: Ade Wells DEPT: SURGICAL PATHOLOGY RECD BY: Chris Restrepo ENTERED: 12/21/21 11:34 SP TYPE: EGD BIOPSY OT DR: Nadia Freire, RN WOUND CARE-C Tissues: A - COLON BIOPSY B - Gastric mucous membrane C - Cecum, NOS Procedures: Special Stain Group II Surgery Specimen Level IV Alcian Blue/PAS (control) HEADER OPERATION: Colonoscopy, EGD ([facility] [place] PRE-OP DIAGNOSIS: GERD, melena, screening TISSUE SUBMITTED: A ? Prepyloric biopsy, H. pylori, B ? GE junction biopsy, C ? Ileocecal valve lipoma MICROSCOPIC DIAGNOSIS A. Prepyloric biopsy: Gastric mucosa with mild chronic inflammation. See comment. B. Gastroesophageal junction, biopsy: Fragments of gastric mucosa with mild chronic inflammation. No evidence of goblet cell metaplasia. See comment. C. 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 AM:jennifer 12/22/2021 COMMENT A. The results of immunohistochemistry for Helicobacter pylori will be reported separately ([id number]). B. Alcian blue/PAS stain with matched control supports the above diagnosis. MICROSCOPIC DESCRIPTION Slides are reviewed. GROSS DESCRIPTION A - Received in fixative is one container labeled with the patient's name and designated prepyloric biopsy. The specimen consists of one irregular fragment of light raygoza soft tissue that measures 0.3 x 0.2 x 0.1 cm. The specimen is totally submitted in one cassette. B - Received in fixative is one container labeled with the patient's name and designated GE junction biopsy. The specimen consists of multiple irregular fragments of light raygoza soft tissue that in aggregate measure 0.6 x 0.6 x 0.1 cm. The specimen is totally submitted in one cassette. C - Received in fixative is one container labeled with the patient's name and designated ileocecal valve lipoma. The specimen consists of a piece of qie-coxurcejo-levw polyp measuring 2 x 2 x 1.5 cm. Apparent base is inked black. Sections reveal yellow adipose cut surfaces without area of hemorrhage, necrosis or cystic degeneration. The entire specimen is submitted in three cassettes. / YEISON:jennifer 12/21/2021 TC:1 CPT: 58146 x3, 97836
--- NOTE | 2021-12-21 08:00 | IMM_PTH ---
PATIENT: MARILEE DALAL LOC: EN U#:[id number] AGE/SX: 56/F ROOM: RE12/21/[address]: Dr. Ade Wells MD : 1965 BED: DIS: 12/21/2021 SPEC #: [id number] RECD: 12/21/21 13:45 STATUS: ANKITA REJose J #: [id number] ISSA: 12/21/21 08:[address]: Ade Wells DEPT: IMMUNOHISTOCHEMISTRY RECD BY: Farideh Zayas ENTERED: 12/21/21 13:46 SP TYPE: IMMUNO OTHR DR: Nadia Freire, [employer]ADER-C Tissues: A - Pyloric antrum Procedures: H Pylori (initial) PHYSICIAN & INSTITUTION [place] [address] SPECIMEN INFORMATION: Tissue Source: A ? Prepyloric biopsy Clinical Info: GERD, melena, screening Specimen Number: [id number] CPT code: 28577 METHODOLOGY: Deparaffinized sections of prefer/formalin-fixed tissue or PAP/DQ stained slides are incubated with monoclonal/polyclonal antibodies/oligonucleotide probes. Localization is made via biotin free immunoperoxidase method. Appropriate controls are performed and reacted as expected. Results on target cell population are indicated in the following table: RESULTS: ANTIBODY / CLONE RESULT Block A H Pylori (polyclonal) negative These tests were developed and their performance characteristics determined by [facility]. They may not have been cleared or approved by the U.S. Food and Drug Administration. The FDA has determined that such clearance or approval is not necessary. The above immunohistochemical/dualISH markers are ordered and reviewed by the Pathologist. INTERPRETATION: A. Prepyloric biopsy: Negative for Helicobacter pylori organisms. AM:jennifer 12/22/2021
[2021-12-21 08:41] VITALS: BP 100/67; PULSE 62; RESP 16; TEMP 36.2; O2SAT 97
[2021-12-21 08:45] VITALS: BP 109/70; PULSE 61; RESP 16; O2SAT 98
[2021-12-21 08:50] VITALS: BP 94/76; PULSE 60; RESP 16; O2SAT 100
--- NOTE | 2021-12-21 08:52 | OP.CCLET_ITS ---
12/21/2021 Torie Grissom Re : Colonoscopy procedure for Donna Francois Dear Tani This procedure was performed on Tuesday, December 21, 2021. My impressions and recommendations are as follows: Impressions : - Hemorrhoids found on perianal exam. - Non-bleeding internal hemorrhoids. - Medium-sized lipoma at the ileocecal valve. - The examination was otherwise normal. Recommendations : - Discharge patient to home. - Resume previous diet. - Continue present medications. - Await pathology results. - Repeat colonoscopy for surveillance based on pathology results. My findings are described in the full procedure note, which is enclosed. If I can be of further assistance, please feel free to contact me at Doctor phone number(s): , Work: . Sincerely, MD Ade Diaz MD 12/21/2021 8:51:42 AM This report has been signed electronically.
--- NOTE | 2021-12-21 08:52 | OP.COLON_ITS ---
Patient Name: Donna Francois Procedure Date: 12/21/2021 8:07 AM Date of : 1965 Age: 56 Procedure: Colonoscopy Indications: Screening for colorectal malignant neoplasm Providers: Ade Wells MD Medicines: Monitored Anesthesia Care Patient Profile: This is a 56 year old female. Last Colonoscopy: none. The patient's first colonoscopy is today. Complications: No immediate complications. Procedure: Pre-Anesthesia Assessment: - Prior to the procedure, a History and Physical was performed, and patient medications and allergies were reviewed. The patient's tolerance of previous anesthesia was also reviewed. The risks and benefits of the procedure and the sedation options and risks were discussed with the patient. All questions were answered, and informed consent was obtained. Prior Anticoagulants: The patient has taken no previous anticoagulant or antiplatelet agents. ASA Grade Assessment: Per anesthesia. After reviewing the risks and benefits, the patient was deemed in satisfactory condition to undergo the procedure. After I obtained informed consent, the scope was passed under direct vision. Throughout the procedure, the patient's blood pressure, pulse, and oxygen saturations were monitored continuously. The Colonoscope was introduced through the anus and advanced to the cecum, identified by the appendiceal orifice, ileocecal valve and palpation. The colonoscopy was performed without difficulty. The patient tolerated the procedure well. The quality of the bowel preparation was good. Scope In: 8:08:12 AM Scope Withdrawal Time 0 hours 18 minutes 55 seconds Scope Out: 8:37:04 AM Total Procedure Duration Time 0 hours 28 minutes 52 seconds Findings: Hemorrhoids were found on perianal exam. Non-bleeding internal hemorrhoids were found. The hemorrhoids were Grade I (internal hemorrhoids that do not prolapse). There was a medium-sized lipoma, 15 mm in diameter, at the ileocecal valve. The polyp was removed with a hot snare. Resection and retrieval were complete. Garrett net was used to remove the resected lipoma. The exam was otherwise without abnormality. Impression: - Hemorrhoids found on perianal exam. - Non-bleeding internal hemorrhoids. - Medium-sized lipoma at the ileocecal valve. - The examination was otherwise normal. Recommendation: - Discharge patient to home. - Resume previous diet. - Continue present medications. - Await pathology results. - Repeat colonoscopy for surveillance based on pathology results. Procedure Code(s): --- Professional --- 97685, PT, Colonoscopy, flexible; with removal of tumor(s), polyp(s), or other lesion(s) by snare technique Diagnosis Code(s): --- Professional --- Z12.11, Encounter for screening for malignant neoplasm of colon K64.0, First degree hemorrhoids D17.5, Benign lipomatous neoplasm of intra-abdominal organs CPT copyright 2017 [employer]. All rights reserved. The codes documented in this report are preliminary and upon speech language pathologist review may be revised to meet current compliance requirements. MD Ade Diaz MD 12/21/2021 8:51:42 AM This report has been signed electronically. Number of Addenda: 0 Note Initiated On: 12/21/2021 8:07 AM
[2021-12-21 08:55] VITALS: BP 105/74; PULSE 60; RESP 16; O2SAT 100
--- NOTE | 2021-12-21 08:55 | OP.CCLET_ITS ---
12/21/2021 Torie Grissom Re : Upper GI endoscopy procedure for Donna Francois Dear Tani This procedure was performed on Tuesday, December 21, 2021. My impressions and recommendations are as follows: Impressions : - Z-line irregular. Biopsied. - Non-bleeding erosive gastropathy. Biopsied. - Normal examined duodenum. Recommendations : - Await pathology results. - Discharge patient to home. - Resume previous diet. - Use Prilosec (omeprazole) 40 mg PO daily for 2 months. - Continue present medications. My findings are described in the full procedure note, which is enclosed. If I can be of further assistance, please feel free to contact me at Doctor phone number(s): , Work: . Sincerely, MD Ade Diaz MD 12/21/2021 8:55:04 AM This report has been signed electronically.
--- NOTE | 2021-12-21 08:55 | OP.EGD_ITS ---
Patient Name: Donna Francois Procedure Date: 12/21/2021 7:31 AM Date of : 1965 Age: 56 Procedure: Upper GI endoscopy Indications: Suspected gastro-esophageal reflux disease, Melena Providers: Ade Wells MD Medicines: Monitored Anesthesia Care Patient Profile: This is a 56 year old female. Complications: No immediate complications. Procedure: Pre-Anesthesia Assessment: - Prior to the procedure, a History and Physical was performed, and patient medications and allergies were reviewed. The patient's tolerance of previous anesthesia was also reviewed. The risks and benefits of the procedure and the sedation options and risks were discussed with the patient. All questions were answered, and informed consent was obtained. Prior Anticoagulants: The patient has taken no previous anticoagulant or antiplatelet agents. ASA Grade Assessment: Per anesthesia. After reviewing the risks and benefits, the patient was deemed in satisfactory condition to undergo the procedure. After obtaining informed consent, the endoscope was passed under direct vision. Throughout the procedure, the patient's blood pressure, pulse, and oxygen saturations were monitored continuously. The Colonoscope was introduced through the mouth, and advanced to the second part of duodenum. The upper GI endoscopy was accomplished without difficulty. The patient tolerated the procedure well. Scope In: 7:59:59 AM Scope Out: 8:06:59 AM Total Procedure Duration Time 0 hours 7 minutes 0 seconds Findings: The Z-line was irregular. Biopsies were taken with a cold forceps for histology. A few, less than 5 mm non-bleeding healing erosions were found in the prepyloric region of the stomach. Biopsies were taken with a cold forceps for histology. Biopsies were taken with a cold forceps for Helicobacter pylori cultures. The examined duodenum was normal. The cardia and gastric fundus were normal on retroflexion. Impression: - Z-line irregular. Biopsied. - Non-bleeding erosive gastropathy. Biopsied. - Normal examined duodenum. Recommendation: - Await pathology results. - Discharge patient to home. - Resume previous diet. - Use Prilosec (omeprazole) 40 mg PO daily for 2 months. - Continue present medications. Procedure Code(s): --- Professional --- 71214, Esophagogastroduodenoscopy, flexible, transoral; with biopsy, single or multiple Diagnosis Code(s): --- Professional --- K22.8, Other specified diseases of esophagus K31.89, Other diseases of stomach and duodenum K92.1, Melena (includes Hematochezia) CPT copyright 2017 [employer]. All rights reserved. The codes documented in this report are preliminary and upon hims coder review may be revised to meet current compliance requirements. MD Ade Diaz MD 12/21/2021 8:55:04 AM This report has been signed electronically. Number of Addenda: 0 Note Initiated On: 12/21/2021 7:31 AM
[2021-12-21 08:56] VITALS: BP 108/63; PULSE 59; RESP 16; TEMP 36.4; O2SAT 100
== END 2021-12-21 09:33 | disposition home or self-care (01) ==
LOC: EN 06:42 → AC 06:51
PROVIDERS: PCP Nurse Practitioner Family; Referring Provider Nurse Practitioner Family; Visit Provider Surgery
PROC: 0DJD8ZZ Inspection of Lower Intestinal Tract, Via Natural or Artificial Opening Endoscopic (ICD-10-PCS; CPT 45378; principal; 2021-12-21 07:55)
DX: Z12.11 Encounter for screening for malignant neoplasm of colon (principal); K21.9 Gastro-esophageal reflux disease without esophagitis; K64.0 First degree hemorrhoids; Z80.0 Family history of malignant neoplasm of digestive organs; E04.2 Nontoxic multinodular goiter; F41.9 Anxiety disorder, unspecified; I10 Essential (primary) hypertension; G43.909 Migraine, unspecified, not intractable, without status migrainosus; Z79.899 Other long term (current) drug therapy; D17.5 Benign lipomatous neoplasm of intra-abdominal organs; K25.9 Gastric ulcer, unspecified as acute or chronic, without hemorrhage or perforation
CPT/HCPCS: 45385; 43239; 87426; 88305; 88313; 88342; J7120; J2405

== ENCOUNTER 2022-05-12 08:30 | Outpatient (RCR) | payer MEDICAID, SELFPAY ==
[2022-04-21 08:05] VITALS: BP 120/70; PULSE 66; TEMP 36.3
--- NOTE | 2022-04-21 13:16 | HP.PCM_ITS ---
History of Present Illness Date of Service: 04/21/22 Chief Complaint: ulcer and cellulitis right ankle History of Wound: Donna is a very pleasant 56 yo female that presents to the wound healing center today for evaluation and treatment of a nonhealing ulcer of her right medial ankle that has been present for approximately 3 months. The ulcer began after she had an episode of cellulitis and swelling. 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 She has been treated with antibiotics 3 times over the last several months by her primary care doctor but no wound culture has been taken. Her pain improves with antibiotic treatment but typically returns shortly after she completes a course of antibiotics. She has itching to the surrounding area. She has been using compression stockings that are 20-30 mm Hg but there has been little progress in wound healing. She saw Dr. Ross in [place] and also had vascular testing done at [facility] in the last 2 months and when she saw Dr. Ross he told her that his office would contact her to schedule procedure at his office in [place] but she has not heard from their office. There is mild to moderate drainage from the ulcer. She has also been using Haylie/Promogran to the ulcer for several weeks with no improvement. She denies any signs of systemic infection such as fever, chills, nausea, vomiting. [facility] Medical History Anxiety Arthritis Back pain Cardiology follow-up encounter History of echocardiogram History of edema History of irregular heartbeat History of left heart catheterization (LHC) (~03/29/21) History of pain when walking History of PSVT (paroxysmal supraventricular tachycardia) History of stress test History of ventricular tachycardia Hypertension Leg cramps Migraine headache Multinodular goiter Non-smoker Open wound Post-menopausal Premature atrial contraction Premature ventricular contraction Shortness of breath on exertion Thyroid nodule Wears glasses Home Medications Lactobacillus acidophilus 1.5 mg (250 million cell) capsule 100 mmu cells PO DAILY supplement 03/23/21 [History Last Taken Unknown] acetaminophen 325 mg tablet 325 mg PO Q4H PRN Pain 03/23/21 [History Last Taken Unknown] aspirin 81 mg tablet,delayed release (Adult Low Dose Aspirin) 81 mg PO DAILY heart health 03/23/21 [History Last Taken 03/27/21] cholecalciferol (vitamin D3) 50 mcg (2,000 unit) capsule 50 mcg PO DAILY vitamin 03/23/21 [History Last Taken 03/28/21] ibuprofen 200 mg tablet (Advil) 400 mg PO Q4H PRN Pain 03/23/21 [History Last Taken Unknown] clonazepam 0.5 mg tablet 0.5 mg PO QHS 05/17/21 [History Last Taken Unknown] amitriptyline 25 mg tablet 25 mg PO QHS 07/18/21 [History Last Taken Unknown] sumatriptan succinate 50 mg tablet 50 mg PO PRN PRN MIGRAINES 07/18/21 [History Last Taken Unknown] flecainide 100 mg tablet 100 mg PO Q12H 10/18/21 [History Last Taken 12/21/21] apple cider vinegar 500 mg tablet 500 mg PO DAILY 12/19/21 [History Last Taken Unknown] magnesium 500 mg tablet 15 mg PO DAILY 12/19/21 [History Last Taken Unknown] omeprazole 40 mg capsule,delayed release 40 mg PO DAILY #30 caps 12/21/21 [Rx Last Taken Unknown] metoprolol tartrate 25 mg tablet 25 mg PO BID 01/31/22 [History Last Taken Unknown] Allergy/AdvReac Type Severity Reaction Status Date / Time latex Allergy Rash Verified 01/31/22 09:29 Family History Father Heart disease Mother Heart disease Surgical History History of cardiac catheterization Hx of prior ablation treatment S/P S/P thyroid biopsy (~07/2021) Social History Smoking Status: Never smoker alcohol intake: never substance use type: does not use caffeine: Yes what type of physical activity do you participate in: walking, aerobics and other details: stepper frequency: 5-6 times per week do you feel safe at home: Yes additional social history: - Lanodn WILSON Constitutional Constitutional: Denies chills, fatigue or fever(s) Eyes Eyes: Denies blurry vision, change in vision or loss of vision ENT HEENT: Denies dysphagia, hearing loss or sore throat Cardiovascular Cardiovascular: Denies chest pain, edema or palpitations Respiratory/Chest Respiratory/Chest: Denies dry cough, dyspnea, dyspnea on exertion, productive cough or wheezing Gastrointestinal Gastrointestinal: Denies diarrhea, nausea or vomiting Genitourinary Genitourinary: Denies dysuria or polyuria Musculoskeletal Musculoskeletal: Denies arthralgias, joint stiffness or muscle weakness Integumentary Integumentary: Reports erythema and wounds Neurologic Neurologic: Denies dizziness, memory loss or weakness Psychiatric Psychiatric: Denies homicidal ideation or suicidal ideation Endocrine Endocrinology: Denies polydipsia, polyphagia or polyuria Hematologic/Lymphatic Hematologic/Lymphatic: Denies easy bleeding or easy bruising Allergic/Immunologic Allergic/Immunologic: Denies throat swelling, tongue swelling or urticaria Vital Signs Vital Signs Vital Signs: 04/21/22 08:05 Temperature 97.4 F L Temperature Source Temporal Pulse Rate 66 Blood Pressure 120/70 Blood Pressure Mean 86 Blood Pressure Source Monitor Blood Pressure Position Sitting Blood Pressure Location Left Arm Physical Exam Const alert, oriented x3 and no apparent distress General Appearance: cooperative and comfortable HEENT normocephalic and head/scalp atraumatic Resp normal respiratory effort Effort and Inspection: able to speak in complete sentences Cardio regular rate and regular rhythm Skin General Skin Exam: venous stasis and dermatitis Wounds: wounds noted Wound Narrative: as in clinical panel Psych mental status grossly normal, thought process normal, cooperative and affect normal Debridement Note Debridement Note Wound debrided: right medial ankle Laterality: Right Type of Debridement: Excisional debridement Anesthesia Used: 4% Lidocaine Solution, 5% Lidocaine Gel and Cetacaine Depth: Down to and including healthy tissue and in the subcutaneous layer Percentage of wound debrided: 100 Instrument Used: 7mm curette Tissue Removed: Yellow slough, devitalized tissue Severity: Fat Layer Exposed Amount of bleeding with debridement: Mild Bleeding Controlled with: Compression and gauze Patient tolerated procedure: Patient tolerated procedure well Post-Debridement Measurements and Additional Note: Post-Debridement Measurements/Treatment HANG - Nurse 1 - General Ulcer Assessment Start: 04/21/22 08:04 Freq: Status: Active Protocol: MILLICENT Activity Type Activity Date Activity User E-sign Co-sign Detail Recorded Client Recorded Date Recorded By Document 04/21/22 08:05 KR Desktop 04/21/22 08:14 KR 04/21/22 08:05 HANG - Today's Visit Information Type of service Initial Visit Arrival Mode Ambulatory Patient Identification Verified (Name & Yes ) Vital Signs Temperature (97.8 F-99.1 F) 97.4 F L Temperature Source Temporal Pulse Rate (60-100) 66 Pulse Location Monitor Blood Pressure (90/60-120/80) 120/70 Blood Pressure Mean 86 Source Monitor Position Sitting Blood Pressure Location Left Arm History Since Last Visit- (Skip if this is Patient's initial visit) Have you changed medications since your No last visit? Any new allergies or adverse reactions No Had a fall/change in ADL's that may No increase risk of falls Signs or symptoms of abuse and/or No neglect since last visit Have you been in the hospital since your No last visit? Has dressing in place as prescribed No Has compression in place as prescribed N/A Has offloadiing in place as prescribed N/A Experienced any changes in pain level or No management Left Footwear Regular Shoe Right Footwear Regular Shoe Pain Scale: 0-10 Numeric Is Patient Pain Free? Yes WC - Nurse 1 - General Ulcer Measurement Start: 04/21/22 08:04 Freq: Status: Active Protocol: Activity Type Activity Date Activity User E-sign Co-sign Detail Recorded Client Recorded Date Recorded By Document 04/21/22 08:05 KR Desktop 04/21/22 08:14 KR 04/21/22 08:05 Wound Center Nurse 1 #1 R medial ankle -Combined with other wound No -Current Size (cm) - Length 1.3 -Current Size (cm) - Width 0.5 -Current Size (cm) - Depth 0.1 -Total Square Cm 0.65 -Photo Taken Yes -Tunneling No -Undermining/Tunneling No -Circular Undermining No -Change in Wound Grade/Stage No -Exudate Amt Medium -Exudate Type Serosanguineous -Granulation Amt Medium (34-66%) -Granulation Quality [place] -Slough/Fibrin Yes -Necrosis Amt Small (1-33%) -Necrotic Tissue Type Adherent Slough -Structure Exposed N/A -Texture (Leeann-wound Skin Appearance) No Abnormality, Assessed -Moisture (Leeann-wound Skin Appearance) No Abnormality, Assessed -Color (Leeann-wound Skin Appearance) No Abnormality, Assessed -Temperature (Leeann-wound Skin No Abnormality Appearance) (Pt Warm) -Tenderness on Palpation (Leeann-wound No Skin Appearance) -Ulcer Cleansing Rinsed/ Irrigated with Saline -Anesthetic Used 5% Lidocaine Gel Right Calf (cm) 41.4 Right Ankle (cm) 24.1 Left Calf (cm) 45.3 Left Ankle (cm) 25.5 WC - Nurse 2 - General Ulcer CM Notes Start: 04/21/22 08:04 Freq: Status: Active Protocol: Activity Type Activity Date Activity User E-sign Co-sign Detail Recorded Client Recorded Date Recorded By Document 04/21/22 09:03 MW [id number] 04/21/22 09:14 MW 04/21/22 09:03 Wound Center Nurse 2 #1 R medial ankle -Time 09:05 -Correct Patient Yes -Correct Side, Site, Position Yes -Correct Procedure Yes -Procedure Performed Yes -Type of Procedure Debridement -Clinical Debridement Subcutaneous -Tissue Removed Subcutaneous -Post Debridement (cm) - Length 1.5 -Post Debridement (cm) - Width 1.0 -Post Debridement (cm) - Depth 0.1 -Total Square (Post) (cm) 1.50 -Area of Debridement (cm) - Length 1.5 -Area of Debridement (cm) - Width 1.0 -Total Square (Area) (cm) 1.50 -Tunneling No -Circular Undermining No -Wound/Ulcer Outcome Not Healed -Ulcer Cleansing Rinsed/ Irrigated with Saline -Foul Odor after Cleansing No -Bioengineered Tissue No -Bleeding Controlled with Pressure -Treatment Response Procedure Tolerated Well -Offloading No -Debridement - Subq, 1st 20sq cm Yes Pain Scale: 0-10 Numeric Is Patient Pain Free? Yes Assessment/Plan Assessment/Plan (1) Venous insufficiency of both lower extremities: CODE(S): I87.2 - Venous insufficiency (chronic) (peripheral) (2) Venous ulcer of right lower extremity with varicose veins: CODE(S): I83.019 - Varicose veins of right lower extremity with ulcer of unspecified site; L97.919 - Non-pressure chronic ulcer of unspecified part of right lower leg with unspecified severity (3) Ulcer of right lower extremity with fat layer exposed: CODE(S): L97.912 - Non-pressure chronic ulcer of unspecified part of right lower leg with fat layer exposed PLAN: Plan Debridement performed today in clinic as annotated above. At home wound-care instructions: Her ulcer will be dressed with Promogran for moderate drainage and compression with UNNA boot therapy will be performed to her right leg. Will plan on change of dressings on Sunday. She was advised to call if she has increased pain and to remove the dressing if it is wet or soiled. Keep dressing clean and dry. Off-loading: The patient was instructed to avoid pressure and friction on the affected areas. Reposition every 2 hours at minimum. Avoid prolonged standing and/or dangling of legs. When seated, feet should be elevated at chest level. Frequent ambulation is encouraged. Diet: Patient encouraged to increase protein intake while taking caution to avoid high carbohydrate and/or sugar intake. Labs/cultures/imaging: Wound culture taken today. She has undergone vascular testing at [facility] and has seen Dr. Ross and vascular procedure was discussed but she has not heard from his office regarding scheduling the procedure. Encouraged her to call Dr. Ross's office to schedule procedure. Follow-up: Return in 1 week for wound care follow up. Return sooner or report to the emergency room should symptoms worsen, or new symptoms arise. Note: Jeeran speech recognition recovery room nurse software was used to create portions of this document. Sound-alike and misspelled words, as well as other recovery room nurse errors may be contained in the documentation.
[2022-04-24 08:26] VITALS: BP 127/64; PULSE 82; RESP 16; TEMP 35.6
[2022-04-28 08:36] VITALS: BP 120/73; PULSE 74; RESP 20; TEMP 36.5
--- NOTE | 2022-04-28 14:07 | PCM.WC.PN ---
History of Present Illness Date of Service: 04/28/22 Chief Complaint: ulcer and cellulitis right ankle History of Wound: Donna is a very pleasant 56 yo female that presents to the wound healing center today for evaluation and treatment of a nonhealing ulcer of her right medial ankle that has been present for approximately 3 months. The ulcer began after she had an episode of cellulitis and swelling. 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 She has been treated with antibiotics 3 times over the last several months by her primary care doctor but no wound culture has been taken. Her pain improves with antibiotic treatment but typically returns shortly after she completes a course of antibiotics. She has itching to the surrounding area. She has been using compression stockings that are 20-30 mm Hg but there has been little progress in wound healing. She saw Dr. Ross in [place] and also had vascular testing done at [facility] in the last 2 months and when she saw Dr. Ross he told her that his office would contact her to schedule procedure at his office in [place] but she has not heard from their office. There is mild to moderate drainage from the ulcer. She has also been using Haylie/Promogran to the ulcer for several weeks with no improvement. She denies any signs of systemic infection such as fever, chills, nausea, vomiting. Progress of Wound: Donna tolerated UNNA boot compression and Promogran to her ulcer. Cultures were negative for infection. Objective Data Objective Data Vital Signs: Vital Signs Temp Pulse Resp BP 97.7 F L 74 20 H 120/73 04/28/22 08:36 04/28/22 08:36 04/28/22 08:36 04/28/22 08:36 Lab / Micro Data Micro: Microbiology 04/21/22 09:15 Wound Abcess - Ankle Gram Stain - Final 04/21/22 09:15 Wound Abcess - Ankle Wound Culture - Final No growth aerobically. 04/21/22 09:15 Wound Abcess - Ankle Anaerobic Culture - Final No growth in 5 days. Physical Exam Const alert, oriented x3 and no apparent distress General Appearance: cooperative and comfortable HEENT normocephalic and head/scalp atraumatic Resp normal respiratory effort Effort and Inspection: able to speak in complete sentences Cardio regular rate and regular rhythm Skin General Skin Exam: venous stasis and dermatitis Wounds: wounds noted Wound Narrative: as in clinical panel Psych mental status grossly normal, thought process normal, cooperative and affect normal Debridement Note Debridement Note Wound debrided: right medial ankle Laterality: Right Type of Debridement: Excisional debridement Anesthesia Used: 4% Lidocaine Solution, 5% Lidocaine Gel and Cetacaine Depth: Down to and including healthy tissue and in the subcutaneous layer Percentage of wound debrided: 100 Instrument Used: 3mm curette Tissue Removed: Yellow slough, devitalized tissue Severity: Fat Layer Exposed Amount of bleeding with debridement: Mild Bleeding Controlled with: Compression and gauze Patient tolerated procedure: Patient tolerated procedure well Post-Debridement Measurements and Additional Note: Post-Debridement Measurements/Treatment - Nurse 1 - General Ulcer Assessment Start: 04/21/22 08:04 Freq: Status: Active Protocol: MILLICENT Activity Type Activity Date Activity User E-sign Co-sign Detail Recorded Client Recorded Date Recorded By Document 04/21/22 08:05 KR Desktop 04/21/22 08:14 KR Document 04/24/22 08:26 JF [id number] 04/24/22 08:27 JF Document 04/28/22 08:36 DL [id number] 04/28/22 08:41 DL 04/21/22 04/24/22 04/28/22 08:05 08:26 08:36 - Today's Visit Information Type of service Initial Visit Nurse-only Follow-up Visit Visit (Physician/SCOUT ) Arrival Mode Ambulatory Ambulatory Ambulatory Transfer Assistance None Patient Identification Verified (Name & Yes Yes Yes ) Patient Requires Transmission-Based No No Precautions Vital Signs Temperature (97.8 F-99.1 F) 97.4 F L 96.1 F L 97.7 F L Temperature Source Temporal Temporal Temporal Pulse Rate (60-100) 66 82 74 Pulse Location Monitor Monitor Monitor Respiratory Rate (12-18) 16 20 H Respiratory rate source Observation Observation Blood Pressure (90/60-120/80) 120/70 127/64 H 120/73 Blood Pressure Mean (mm Hg) 86 85 88 Source Monitor Monitor Monitor Position Sitting Semi-Fowlers Blood Pressure Location Left Arm Right Arm Comment Unna boot removed this morning to shower. History Since Last Visit- (Skip if this is Patient's initial visit) Have you changed medications since your No No No last visit? Any new allergies or adverse reactions No No No Had a fall/change in ADL's that may No No No increase risk of falls Signs or symptoms of abuse and/or No No No neglect since last visit Have you been in the hospital since your No No No last visit? Has dressing in place as prescribed No Yes Yes Has compression in place as prescribed N/A Yes No Has offloadiing in place as prescribed N/A N/A N/A Experienced any changes in pain level or No No No management Left Footwear Regular Shoe Regular Shoe Right Footwear Regular Shoe Regular Shoe Pain Scale: 0-10 Numeric Is Patient Pain Free? Yes Yes Yes WC - Nurse 1 - General Ulcer Measurement Start: 04/21/22 08:04 Freq: Status: Active Protocol: Activity Type Activity Date Activity User E-sign Co-sign Detail Recorded Client Recorded Date Recorded By Document 04/21/22 08:05 KR Desktop 04/21/22 08:14 KR Document 04/24/22 08:26 JF [id number] 04/24/22 08:27 JF Document 04/28/22 08:36 DL [id number] 04/28/22 08:41 DL 04/21/22 04/24/22 04/28/22 08:05 08:26 08:36 Wound Center Nurse 1 #1 R medial ankle -Combined with other wound No -Current Size (cm) - Length 1.3 1.2 -Current Size (cm) - Width 0.5 0.4 -Current Size (cm) - Depth 0.1 0.2 -Total Square Cm 0.65 0.48 -Photo Taken Yes No -Tunneling No -Undermining/Tunneling No -Circular Undermining No -Change in Wound Grade/Stage No -Exudate Amt Medium Small -Exudate Type Serosanguineous Serosanguineous -Wound Margin Distinct, Outline Attached -Granulation Amt Medium (34-66%) Medium (34-66%) -Granulation Quality [place] Red -Slough/Fibrin Yes -Necrosis Amt Small (1-33%) Medium (34-66%) -Necrotic Tissue Type Adherent Slough Adherent Slough -Structure Exposed N/A N/A -Texture (Leeann-wound Skin Appearance) No Abnormality, Scarring Assessed -Moisture (Leeann-wound Skin Appearance) No Abnormality, Dry/Scaly Assessed -Color (Leeann-wound Skin Appearance) No Abnormality, Hemosiderin Assessed Staining -Temperature (Leeann-wound Skin No Abnormality No Abnormality Appearance) (Pt Warm) (Pt Warm) -Tenderness on Palpation (Leeann-wound No No Skin Appearance) -Ulcer Cleansing Rinsed/ Not Cleansed Irrigated with Saline -Foul Odor after Cleansing No -Anesthetic Used 5% Lidocaine 5% Lidocaine Gel Gel Lower Limb Edema Present No Right Calf (cm) 41.4 41.3 Right Ankle (cm) 24.1 24.5 Left Calf (cm) 45.3 Left Ankle (cm) 25.5 WC - Nurse 2 - General Ulcer CM Notes Start: 04/21/22 08:04 Freq: Status: Active Protocol: Activity Type Activity Date Activity User E-sign Co-sign Detail Recorded Client Recorded Date Recorded By Document 04/21/22 09:03 MW [id number] 04/21/22 09:14 MW Document 04/28/22 08:59 MW [id number] 04/28/22 09:15 MW 04/21/22 04/28/22 09:03 08:59 Wound Center Nurse 2 #1 R medial ankle -Time 09:05 09:00 -Correct Patient Yes Yes -Correct Side, Site, Position Yes Yes -Correct Procedure Yes Yes -Procedure Performed Yes Yes -Type of Procedure Debridement Debridement -Clinical Debridement Subcutaneous Subcutaneous -Tissue Removed Subcutaneous Subcutaneous -Post Debridement (cm) - Length 1.5 1.5 -Post Debridement (cm) - Width 1.0 0.7 -Post Debridement (cm) - Depth 0.1 0.1 -Total Square (Post) (cm) 1.50 1.05 -Area of Debridement (cm) - Length 1.5 1.5 -Area of Debridement (cm) - Width 1.0 0.7 -Total Square (Area) (cm) 1.50 1.05 -Tunneling No No -Undermining/Tunneling No -Circular Undermining No No -Wound/Ulcer Outcome Not Healed Not Healed -Ulcer Cleansing Rinsed/ Rinsed/ Irrigated with Irrigated with Saline Saline -Foul Odor after Cleansing No No -Bioengineered Tissue No No -Bleeding Controlled with Pressure Pressure -Treatment Response Procedure Procedure Tolerated Well Tolerated Well -Offloading No No -Debridement - Subq, 1st 20sq cm Yes Yes Pain Scale: 0-10 Numeric Is Patient Pain Free? Yes Yes - Nurse 3 - General Ulcer D/C NN Start: 04/21/22 08:04 Freq: Status: Active Protocol: Activity Type Activity Date Activity User E-sign Co-sign Detail Recorded Client Recorded Date Recorded By Document 04/24/22 08:26 JF [id number] 04/24/22 08:27 JF Edit Result 04/24/22 08:26 JF (1) [id number] 04/25/22 07:22 PL Document 04/28/22 09:32 DL [id number] 04/28/22 09:33 DL (1) Right - Multi-Layered Wrap Application => Unna Boot - Right => ($) - Unna Boots (Bilat) ($) 1 => 04/24/22 04/28/22 08:26 09:32 Vital Signs Temperature (97.8 F-99.1 F) 96.1 F L Temperature Source Temporal Pulse Rate (60-100) 82 Pulse Location Monitor Respiratory Rate (12-18) 16 Respiratory rate source Observation Blood Pressure (90/60-120/80) 127/64 H Blood Pressure Mean (mm Hg) 85 Source Monitor Position Semi-Fowlers Blood Pressure Location Right Arm Pain Scale: 0-10 Numeric Is Patient Pain Free? Yes Yes Wound Care Nurse 3 #1 R medial ankle -Ulcer Cleansing Rinsed/ Rinsed/ Irrigated with Irrigated with Saline Saline -Foul Odor after Cleansing No No -Primary Dressing Applied Promogran -Other Dressing promogran -Primary Dressing Covered/Secured with Dry Gauze -Promogran 0 Right -Multi-Layered Wrap Application Unna Boot - Unna Boot - Right ($) Right ($) Treatment Response Procedure Tolerated Well WC - Visit Discharge Discharge Condition Stable Stable Ambulatory Status Ambulatory Ambulatory Transportation Private Auto Private Auto Accompanied by Medication Reconcilliation completed & Yes provided to patient/care provider Clinical Summary of Care Provided Yes Assessment/Plan Assessment/Plan (1) Venous insufficiency of both lower extremities: CODE(S): I87.2 - Venous insufficiency (chronic) (peripheral) (2) Venous ulcer of right lower extremity with varicose veins: CODE(S): I83.019 - Varicose veins of right lower extremity with ulcer of unspecified site; L97.919 - Non-pressure chronic ulcer of unspecified part of right lower leg with unspecified severity (3) Ulcer of right lower extremity with fat layer exposed: CODE(S): L97.912 - Non-pressure chronic ulcer of unspecified part of right lower leg with fat layer exposed PLAN: Plan Debridement performed today in clinic as annotated above. At home wound-care instructions: Her ulcer will be dressed with Promogran for moderate drainage and compression with UNNA boot therapy will be performed to her right leg. She was advised to call if she has increased pain and to remove the dressing if it is wet or soiled. Keep dressing clean and dry. Off-loading: The patient was instructed to avoid pressure and friction on the affected areas. Reposition every 2 hours at minimum. Avoid prolonged standing and/or dangling of legs. When seated, feet should be elevated at chest level. Frequent ambulation is encouraged. Diet: Patient encouraged to increase protein intake while taking caution to avoid high carbohydrate and/or sugar intake. Labs/cultures/imaging: Wound culture negative. She has undergone vascular testing at [facility] and has seen Dr. Ross and vascular procedure was discussed but she has not heard from his office regarding scheduling the procedure. Encouraged her to call Dr. Ross's office to schedule procedure. Follow-up: Return in 1 week for wound care follow up. Return sooner or report to the emergency room should symptoms worsen, or new symptoms arise. Note: [employer] speech recognition air intercept controller supervisor software was used to create portions of this document. Sound-alike and misspelled words, as well as other air intercept controller supervisor errors may be contained in the documentation.
[2022-05-05 09:18] VITALS: BP 100/55; PULSE 69; RESP 18; TEMP 35.8
--- NOTE | 2022-05-05 12:13 | PCM.WC.PN ---
History of Present Illness Date of Service: 05/05/22 Chief Complaint: ulcer and cellulitis right ankle History of Wound: Donna is a very pleasant 56 yo female that presents to the wound healing center today for evaluation and treatment of a nonhealing ulcer of her right medial ankle that has been present for approximately 3 months. The ulcer began after she had an episode of cellulitis and swelling. 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 She has been treated with antibiotics 3 times over the last several months by her primary care doctor but no wound culture has been taken. Her pain improves with antibiotic treatment but typically returns shortly after she completes a course of antibiotics. She has itching to the surrounding area. She has been using compression stockings that are 20-30 mm Hg but there has been little progress in wound healing. She saw Dr. Ross in [place] and also had vascular testing done at [facility] in the last 2 months and when she saw Dr. Ross he told her that his office would contact her to schedule procedure at his office in [place] but she has not heard from their office. There is mild to moderate drainage from the ulcer. She has also been using Haylie/Promogran to the ulcer for several weeks with no improvement. She denies any signs of systemic infection such as fever, chills, nausea, vomiting. Progress of Wound: Donna tolerated UNNA boot compression and Promogran to her ulcer. Cultures were negative for infection. Objective Data Objective Data Vital Signs: Vital Signs Temp Pulse Resp BP 96.4 F L 69 18 100/55 L 05/05/22 09:18 05/05/22 09:18 05/05/22 09:18 05/05/22 09:18 Lab / Micro Data Micro: Microbiology 04/21/22 09:15 Wound Abcess - Ankle Gram Stain - Final 04/21/22 09:15 Wound Abcess - Ankle Wound Culture - Final No growth aerobically. 04/21/22 09:15 Wound Abcess - Ankle Anaerobic Culture - Final No growth in 5 days. Physical Exam Const alert, oriented x3 and no apparent distress General Appearance: cooperative and comfortable HEENT normocephalic and head/scalp atraumatic Resp normal respiratory effort Effort and Inspection: able to speak in complete sentences Cardio regular rate and regular rhythm Skin General Skin Exam: venous stasis and dermatitis Wounds: wounds noted Wound Narrative: as in clinical panel Psych mental status grossly normal, thought process normal, cooperative and affect normal Debridement Note Debridement Note Wound debrided: right medial ankle Laterality: Right Type of Debridement: Excisional debridement Anesthesia Used: 4% Lidocaine Solution, 5% Lidocaine Gel and Cetacaine Depth: Down to and including healthy tissue and in the subcutaneous layer Percentage of wound debrided: 100 Instrument Used: 3mm curette Tissue Removed: Yellow slough, devitalized tissue Severity: Fat Layer Exposed Amount of bleeding with debridement: Mild Bleeding Controlled with: Compression and gauze Patient tolerated procedure: Patient tolerated procedure well Post-Debridement Measurements and Additional Note: Post-Debridement Measurements/Treatment - Nurse 1 - General Ulcer Assessment Start: 04/21/22 08:04 Freq: Status: Active Protocol: MILLICENT Activity Type Activity Date Activity User E-sign Co-sign Detail Recorded Client Recorded Date Recorded By Document 04/21/22 08:05 KR Desktop 04/21/22 08:14 KR Document 04/24/22 08:26 JF [id number] 04/24/22 08:27 JF Document 04/28/22 08:36 DL [id number] 04/28/22 08:41 DL Document 05/05/22 09:18 RB [id number] 05/05/22 09:23 RB 04/21/22 04/24/22 04/28/22 08:05 08:26 08:36 - Today's Visit Information Type of service Initial Visit Nurse-only Follow-up Visit 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 ) Arrival Mode Ambulatory Ambulatory Ambulatory Transfer Assistance None Patient Identification Verified (Name & Yes Yes Yes ) Patient Requires Transmission-Based No No Precautions Vital Signs Temperature (97.8 F-99.1 F) 97.4 F L 96.1 F L 97.7 F L Temperature Source Temporal Temporal Temporal Pulse Rate (60-100) 66 82 74 Pulse Location Monitor Monitor Monitor Respiratory Rate (12-18) 16 20 H Respiratory rate source Observation Observation Blood Pressure (90/60-120/80) 120/70 127/64 H 120/73 Blood Pressure Mean (mm Hg) 86 85 88 Source Monitor Monitor Monitor Position Sitting Semi-Fowlers Blood Pressure Location Left Arm Right Arm Comment Unna boot removed this morning to shower. History Since Last Visit- (Skip if this is Patient's initial visit) Have you changed medications since your No No No last visit? Any new allergies or adverse reactions No No No Had a fall/change in ADL's that may No No No increase risk of falls Signs or symptoms of abuse and/or No No No neglect since last visit Have you been in the hospital since your No No No last visit? Has dressing in place as prescribed No Yes Yes Has compression in place as prescribed N/A Yes No Has offloadiing in place as prescribed N/A N/A N/A Experienced any changes in pain level or No No No management Left Footwear Regular Shoe Regular Shoe Right Footwear Regular Shoe Regular Shoe Pain Scale: 0-10 Numeric Is Patient Pain Free? 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 ) Arrival Mode Ambulatory Transfer Assistance None Patient Identification Verified (Name & Yes ) Patient Requires Transmission-Based No Precautions Vital Signs Temperature (97.8 F-99.1 F) 96.4 F L Temperature Source Temporal Pulse Rate (60-100) 69 Pulse Location Monitor Respiratory Rate (12-18) 18 Respiratory rate source Observation Blood Pressure (90/60-120/80) 100/55 L Blood Pressure Mean (mm Hg) 70 Source Monitor Position Sitting Blood Pressure Location Left Arm Comment History Since Last Visit- (Skip if this is Patient's initial visit) Have you changed medications since your No last visit? Any new allergies or adverse reactions No Had a fall/change in ADL's that may No increase risk of falls Signs or symptoms of abuse and/or No neglect since last visit Have you been in the hospital since your No last visit? Has dressing in place as prescribed Yes Has compression in place as prescribed No Has offloadiing in place as prescribed No Experienced any changes in pain level or No management Left Footwear Right Footwear Pain Scale: 0-10 Numeric Is Patient Pain Free? Yes - Nurse 1 - General Ulcer Measurement Start: 04/21/22 08:04 Freq: Status: Active Protocol: Activity Type Activity Date Activity User E-sign Co-sign Detail Recorded Client Recorded Date Recorded By Document 04/21/22 08:05 KR Desktop 04/21/22 08:14 KR Document 09/12/22 08:26 JF [id number] 04/24/22 08:27 JF Document 04/28/22 08:36 DL [id number] 04/28/22 08:41 DL Document 05/05/22 09:18 RB [id number] 05/05/22 09:23 RB 04/21/22 04/24/22 04/28/22 08:05 08:26 08:36 Wound Center Nurse 1 #1 R medial ankle -Combined with other wound No -Current Size (cm) - Length 1.3 1.2 -Current Size (cm) - Width 0.5 0.4 -Current Size (cm) - Depth 0.1 0.2 -Total Square Cm 0.65 0.48 -Photo Taken Yes No -Tunneling No -Undermining/Tunneling No -Circular Undermining No -Change in Wound Grade/Stage No -Exudate Amt Medium Small -Exudate Type Serosanguineous Serosanguineous -Wound Margin Distinct, Outline Attached -Granulation Amt Medium (34-66%) Medium (34-66%) -Granulation Quality Mango Red -Slough/Fibrin Yes -Necrosis Amt Small (1-33%) Medium (34-66%) -Necrotic Tissue Type Adherent Slough Adherent Slough -Structure Exposed N/A N/A -Texture (Leeann-wound Skin Appearance) No Abnormality, Scarring Assessed -Moisture (Leeann-wound Skin Appearance) No Abnormality, Dry/Scaly Assessed -Color (Leeann-wound Skin Appearance) No Abnormality, Hemosiderin Assessed Staining -Temperature (Leeann-wound Skin No Abnormality No Abnormality Appearance) (Pt Warm) (Pt Warm) -Tenderness on Palpation (Leeann-wound No No Skin Appearance) -Ulcer Cleansing Rinsed/ Not Cleansed Irrigated with Saline -Foul Odor after Cleansing No -Anesthetic Used 5% Lidocaine 5% Lidocaine Gel Gel Lower Limb Edema Present No Right Calf (cm) 41.4 41.3 Right Ankle (cm) 24.1 24.5 Left Calf (cm) 45.3 Left Ankle (cm) 25.5 05/05/22 09:18 Wound Center Nurse 1 #1 R medial ankle -Combined with other wound No -Current Size (cm) - Length 1 -Current Size (cm) - Width 0.5 -Current Size (cm) - Depth 0.1 -Total Square Cm 0.5 -Photo Taken Yes -Tunneling No -Undermining/Tunneling No -Circular Undermining No -Change in Wound Grade/Stage -Exudate Amt Medium -Exudate Type Serosanguineous -Wound Margin Distinct, Outline Attached -Granulation Amt Medium (34-66%) -Granulation Quality Mango -Slough/Fibrin Yes -Necrosis Amt Small (1-33%) -Necrotic Tissue Type Adherent Slough -Structure Exposed N/A -Texture (Leeann-wound Skin Appearance) Assessed -Moisture (Leeann-wound Skin Appearance) Assessed -Color (Leeann-wound Skin Appearance) Assessed, Hemosiderin Staining -Temperature (Leeann-wound Skin No Abnormality Appearance) (Pt Warm) -Tenderness on Palpation (Leeann-wound No Skin Appearance) -Ulcer Cleansing Wound Cleanser -Foul Odor after Cleansing No -Anesthetic Used 5% Lidocaine Gel Lower Limb Edema Present Yes Right Calf (cm) 38.4 Right Ankle (cm) 22.5 Left Calf (cm) Left Ankle (cm) WC - Nurse 2 - General Ulcer CM Notes Start: 04/21/22 08:04 Freq: Status: Active Protocol: Activity Type Activity Date Activity User E-sign Co-sign Detail Recorded Client Recorded Date Recorded By Document 04/21/22 09:03 MW [id number] 04/21/22 09:14 MW Document 04/28/22 08:59 MW [id number] 04/28/22 09:15 MW Document 05/05/22 09:36 MW [id number] 05/05/22 09:45 MW 04/21/22 04/28/22 05/05/22 09:03 08:59 09:36 Wound Center Nurse 2 #1 R medial ankle -Time 09:05 09:00 09:38 -Correct Patient Yes Yes Yes -Correct Side, Site, Position Yes Yes Yes -Correct Procedure Yes Yes Yes -Procedure Performed Yes Yes Yes -Type of Procedure Debridement Debridement Debridement -Clinical Debridement Subcutaneous Subcutaneous Subcutaneous -Tissue Removed Subcutaneous Subcutaneous Subcutaneous -Post Debridement (cm) - Length 1.5 1.5 1.1 -Post Debridement (cm) - Width 1.0 0.7 0.7 -Post Debridement (cm) - Depth 0.1 0.1 0.1 -Total Square (Post) (cm) 1.50 1.05 0.77 -Area of Debridement (cm) - Length 1.5 1.5 1.1 -Area of Debridement (cm) - Width 1.0 0.7 0.7 -Total Square (Area) (cm) 1.50 1.05 0.77 -Tunneling No No No -Undermining/Tunneling No No -Circular Undermining No No No -Wound/Ulcer Outcome Not Healed Not Healed Not Healed -Ulcer Cleansing Rinsed/ Rinsed/ Rinsed/ Irrigated with Irrigated with Irrigated with Saline Saline Saline -Foul Odor after Cleansing No No No -Bioengineered Tissue No No No -Bleeding Controlled with Pressure Pressure Pressure -Treatment Response Procedure Procedure Procedure Tolerated Well Tolerated Well Tolerated Well -Offloading No No No -Debridement - Subq, 1st 20sq cm Yes Yes Yes Pain Scale: 0-10 Numeric Is Patient Pain Free? Yes Yes Yes WC - Nurse 3 - General Ulcer D/C NN Start: 04/21/22 08:04 Freq: Status: Active Protocol: Activity Type Activity Date Activity User E-sign Co-sign Detail Recorded Client Recorded Date Recorded By Document 04/24/22 08:26 JF [id number] 04/24/22 08:27 JF Edit Result 04/24/22 08:26 JF (1) [id number] 04/25/22 07:22 PL Document 04/28/22 09:32 DL [id number] 04/28/22 09:33 DL Document 05/05/22 10:15 RB [id number] 05/05/22 10:16 RB (1) Right - Multi-Layered Wrap Application => Unna Boot - Right => ($) - Unna Boots (Bilat) ($) 1 => 04/24/22 04/28/22 05/05/22 08:26 09:32 10:15 Vital Signs Temperature (97.8 F-99.1 F) 96.1 F L Temperature Source Temporal Pulse Rate (60-100) 82 Pulse Location Monitor Respiratory Rate (12-18) 16 Respiratory rate source Observation Blood Pressure (90/60-120/80) 127/64 H Blood Pressure Mean (mm Hg) 85 Source Monitor Position Semi-Fowlers Blood Pressure Location Right Arm Pain Scale: 0-10 Numeric Is Patient Pain Free? Yes Yes Yes Wound Care Nurse 3 #1 R medial ankle -Ulcer Cleansing Rinsed/ Rinsed/ Wound Cleanser Irrigated with Irrigated with Saline Saline -Foul Odor after Cleansing No No -Primary Dressing Applied Promogran NonAdherent Contact Layer, Promogran -Other Dressing promogran -Primary Dressing Covered/Secured with Dry Gauze Dry Gauze -Promogran 0 1 Right -Multi-Layered Wrap Application Unna Boot - Unna Boot - Unna Boot - Right ($) Right ($) Right ($) Treatment Response Procedure Procedure Tolerated Well Tolerated Well WC - Visit Discharge Discharge Condition Stable Stable Stable Ambulatory Status Ambulatory Ambulatory Ambulatory Transportation Private Auto Private Auto Private Auto Accompanied by Medication Reconcilliation completed & Yes No provided to patient/care provider Clinical Summary of Care Provided Yes Yes Assessment/Plan Assessment/Plan (1) Venous insufficiency of both lower extremities: CODE(S): I87.2 - Venous insufficiency (chronic) (peripheral) (2) Venous ulcer of right lower extremity with varicose veins: CODE(S): I83.019 - Varicose veins of right lower extremity with ulcer of unspecified site; L97.919 - Non-pressure chronic ulcer of unspecified part of right lower leg with unspecified severity (3) Ulcer of right lower extremity with fat layer exposed: CODE(S): L97.912 - Non-pressure chronic ulcer of unspecified part of right lower leg with fat layer exposed PLAN: Plan Debridement performed today in clinic as annotated above. At home wound-care instructions: Her ulcer will be dressed with Promogran for moderate drainage, cover with adaptic and compression with UNNA boot therapy will be performed to her right leg. She was advised to call if she has increased pain and to remove the dressing if it is wet or soiled. Keep dressing clean and dry. Off-loading: The patient was instructed to avoid pressure and friction on the affected areas. Reposition every 2 hours at minimum. Avoid prolonged standing and/or dangling of legs. When seated, feet should be elevated at chest level. Frequent ambulation is encouraged. Diet: Patient encouraged to increase protein intake while taking caution to avoid high carbohydrate and/or sugar intake. Labs/cultures/imaging: Wound culture negative. She has undergone vascular testing at [facility] and has seen Dr. Ross and vascular procedure was discussed but she has not heard from his office regarding scheduling the procedure. Encouraged her to call Dr. Ross's office to schedule procedure. Follow-up: Return in 1 week for wound care follow up. Return sooner or report to the emergency room should symptoms worsen, or new symptoms arise. Note: [employer] speech recognition recovery engineer software was used to create portions of this document. Sound-alike and misspelled words, as well as other recovery engineer errors may be contained in the documentation.
[2022-05-12 08:37] VITALS: BP 123/72; PULSE 69; RESP 16; TEMP 36.1
--- NOTE | 2022-05-12 11:44 | PCM.WC.PN ---
History of Present Illness Date of Service: 05/12/22 Chief Complaint: ulcer and cellulitis right ankle History of Wound: Donna is a very pleasant 56 yo female that presents to the wound healing center today for evaluation and treatment of a nonhealing ulcer of her right medial ankle that has been present for approximately 3 months. The ulcer began after she had an episode of cellulitis and swelling. 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 She has been treated with antibiotics 3 times over the last several months by her primary care doctor but no wound culture has been taken. Her pain improves with antibiotic treatment but typically returns shortly after she completes a course of antibiotics. She has itching to the surrounding area. She has been using compression stockings that are 20-30 mm Hg but there has been little progress in wound healing. She saw Dr. Ross in [place] and also had vascular testing done at [facility] in the last 2 months and when she saw Dr. Ross he told her that his office would contact her to schedule procedure at his office in [place] but she has not heard from their office. There is mild to moderate drainage from the ulcer. She has also been using Haylie/Promogran to the ulcer for several weeks with no improvement. She denies any signs of systemic infection such as fever, chills, nausea, vomiting. Progress of Wound: Donna tolerated UNNA boot compression and Promogran to her ulcer. There is significant improvement in the size of her ulcer. Objective Data Objective Data Vital Signs: Vital Signs Temp Pulse Resp BP 97.0 F L 69 16 123/72 H 05/12/22 08:37 05/12/22 08:37 05/12/22 08:37 05/12/22 08:37 Lab / Micro Data Micro: Microbiology 04/21/22 09:15 Wound Abcess - Ankle Gram Stain - Final 04/21/22 09:15 Wound Abcess - Ankle Wound Culture - Final No growth aerobically. 04/21/22 09:15 Wound Abcess - Ankle Anaerobic Culture - Final No growth in 5 days. Physical Exam Const alert, oriented x3 and no apparent distress General Appearance: cooperative and comfortable HEENT normocephalic and head/scalp atraumatic Resp normal respiratory effort Effort and Inspection: able to speak in complete sentences Cardio regular rate and regular rhythm Skin General Skin Exam: venous stasis and dermatitis Wounds: wounds noted Wound Narrative: as in clinical panel Psych mental status grossly normal, thought process normal, cooperative and affect normal Debridement Note Debridement Note Wound debrided: right medial ankle Laterality: Right Type of Debridement: Excisional debridement Anesthesia Used: 4% Lidocaine Solution, 5% Lidocaine Gel and Cetacaine Depth: Down to and including healthy tissue and in the subcutaneous layer Percentage of wound debrided: 100 Instrument Used: 3mm curette Tissue Removed: Yellow slough, devitalized tissue Severity: Fat Layer Exposed Amount of bleeding with debridement: Mild Bleeding Controlled with: Compression and gauze Patient tolerated procedure: Patient tolerated procedure well Post-Debridement Measurements and Additional Note: Post-Debridement Measurements/Treatment - Nurse 1 - General Ulcer Assessment Start: 04/21/22 08:04 Freq: Status: Active Protocol: MILLICENT Activity Type Activity Date Activity User E-sign Co-sign Detail Recorded Client Recorded Date Recorded By Document 04/21/22 08:05 KR Desktop 04/21/22 08:14 KR Document 04/24/22 08:26 JF [id number] 04/24/22 08:27 JF Document 04/28/22 08:36 DL [id number] 04/28/22 08:41 DL Document 05/05/22 09:18 RB [id number] 05/05/22 09:23 RB Document 05/12/22 08:37 ML [id number] 05/12/22 08:39 ML 04/21/22 04/24/22 04/28/22 08:05 08:26 08:36 - Today's Visit Information Type of service Initial Visit Nurse-only Follow-up Visit Visit (Physician/WARP DYEING VAT TENDER ) Arrival Mode Ambulatory Ambulatory Ambulatory Transfer Assistance None Patient Identification Verified (Name & Yes Yes Yes ) Patient Requires Transmission-Based No No Precautions Safety Precautions Vital Signs Temperature (97.8 F-99.1 F) 97.4 F L 96.1 F L 97.7 F L Temperature Source Temporal Temporal Temporal Pulse Rate (60-100) 66 82 74 Pulse Location Monitor Monitor Monitor Respiratory Rate (12-18) 16 20 H Respiratory rate source Observation Observation Blood Pressure (90/60-120/80) 120/70 127/64 H 120/73 Blood Pressure Mean (mm Hg) 86 85 88 Source Monitor Monitor Monitor Position Sitting Semi-Fowlers Blood Pressure Location Left Arm Right Arm Comment Unna boot removed this morning to shower. History Since Last Visit- (Skip if this is Patient's initial visit) Have you changed medications since your No No No last visit? Any new allergies or adverse reactions No No No Had a fall/change in ADL's that may No No No increase risk of falls Signs or symptoms of abuse and/or No No No neglect since last visit Have you been in the hospital since your No No No last visit? Has dressing in place as prescribed No Yes Yes Has compression in place as prescribed N/A Yes No Has offloadiing in place as prescribed N/A N/A N/A Experienced any changes in pain level or No No No management Left Footwear Regular Shoe Regular Shoe Right Footwear Regular Shoe Regular Shoe Pain Scale: 0-10 Numeric Is Patient Pain Free? Yes Yes Yes 05/05/22 05/12/22 09:18 08:37 WC - Today's Visit Information Type of service Follow-up Visit Follow-up Visit (Physician/WARP DYEING VAT TENDER (Physician/WARP DYEING VAT TENDER ) ) Arrival Mode Ambulatory Ambulatory Transfer Assistance None None Patient Identification Verified (Name & Yes Yes ) Patient Requires Transmission-Based No No Precautions Safety Precautions NA Vital Signs Temperature (97.8 F-99.1 F) 96.4 F L 97.0 F L Temperature Source Temporal Temporal Pulse Rate (60-100) 69 69 Pulse Location Monitor Monitor Respiratory Rate (12-18) 18 16 Respiratory rate source Observation Observation Blood Pressure (90/60-120/80) 100/55 L 123/72 H Blood Pressure Mean (mm Hg) 70 89 Source Monitor Monitor Position Sitting Sitting Blood Pressure Location Left Arm Left Arm Comment History Since Last Visit- (Skip if this is Patient's initial visit) Have you changed medications since your No No last visit? Any new allergies or adverse reactions No No Had a fall/change in ADL's that may No No increase risk of falls Signs or symptoms of abuse and/or No No neglect since last visit Have you been in the hospital since your No No last visit? Has dressing in place as prescribed Yes Yes Has compression in place as prescribed No No Has offloadiing in place as prescribed No N/A Experienced any changes in pain level or No Yes management Left Footwear Regular Shoe Right Footwear Regular Shoe Pain Scale: 0-10 Numeric Is Patient Pain Free? Yes Yes WC - Nurse 1 - General Ulcer Measurement Start: 04/21/22 08:04 Freq: Status: Active Protocol: Activity Type Activity Date Activity User E-sign Co-sign Detail Recorded Client Recorded Date Recorded By Document 04/21/22 08:05 KR Desktop 04/21/22 08:14 KR Document 04/24/22 08:26 JF [id number] 04/24/22 08:27 JF Document 04/28/22 08:36 DL [id number] 04/28/22 08:41 DL Document 05/05/22 09:18 RB [id number] 05/05/22 09:23 RB Document 05/12/22 08:37 ML [id number] 05/12/22 08:39 ML 04/21/22 04/24/22 04/28/22 08:05 08:26 08:36 Wound Center Nurse 1 #1 R medial ankle -Combined with other wound No -Current Size (cm) - Length 1.3 1.2 -Current Size (cm) - Width 0.5 0.4 -Current Size (cm) - Depth 0.1 0.2 -Total Square Cm 0.65 0.48 -Photo Taken Yes No -Tunneling No -Undermining/Tunneling No -Circular Undermining No -Change in Wound Grade/Stage No -Exudate Amt Medium Small -Exudate Type Serosanguineous Serosanguineous -Wound Margin Distinct, Outline Attached -Granulation Amt Medium (34-66%) Medium (34-66%) -Granulation Quality [place] Red -Slough/Fibrin Yes -Necrosis Amt Small (1-33%) Medium (34-66%) -Necrotic Tissue Type Adherent Slough Adherent Slough -Structure Exposed N/A N/A -Texture (Leeann-wound Skin Appearance) No Abnormality, Scarring Assessed -Moisture (Leeann-wound Skin Appearance) No Abnormality, Dry/Scaly Assessed -Color (Leeann-wound Skin Appearance) No Abnormality, Hemosiderin Assessed Staining -Temperature (Leeann-wound Skin No Abnormality No Abnormality Appearance) (Pt Warm) (Pt Warm) -Tenderness on Palpation (Leeann-wound No No Skin Appearance) -Ulcer Cleansing Rinsed/ Not Cleansed Irrigated with Saline -Foul Odor after Cleansing No -Anesthetic Used 5% Lidocaine 5% Lidocaine Gel Gel Lower Limb Edema Present No Right Calf (cm) 41.4 41.3 Right Ankle (cm) 24.1 24.5 Left Calf (cm) 45.3 Left Ankle (cm) 25.5 05/05/22 05/12/22 09:18 08:37 Wound Center Nurse 1 #1 R medial ankle -Combined with other wound No -Current Size (cm) - Length 1 0.3 -Current Size (cm) - Width 0.5 0.1 -Current Size (cm) - Depth 0.1 0.1 -Total Square Cm 0.5 0.03 -Photo Taken Yes -Tunneling No -Undermining/Tunneling No -Circular Undermining No -Change in Wound Grade/Stage -Exudate Amt Medium Small -Exudate Type Serosanguineous Serosanguineous -Wound Margin Distinct, Distinct, Outline Outline Attached Attached -Granulation Amt Medium (34-66%) Large (67-100%) -Granulation Quality [place] -Slough/Fibrin Yes Yes -Necrosis Amt Small (1-33%) Small (1-33%) -Necrotic Tissue Type Adherent Slough Adherent Slough -Structure Exposed N/A -Texture (Leeann-wound Skin Appearance) Assessed Assessed -Moisture (Leeann-wound Skin Appearance) Assessed Assessed -Color (Leeann-wound Skin Appearance) Assessed, Assessed Hemosiderin Staining -Temperature (Leeann-wound Skin No Abnormality No Abnormality Appearance) (Pt Warm) (Pt Warm) -Tenderness on Palpation (Leeann-wound No No Skin Appearance) -Ulcer Cleansing Wound Cleanser Rinsed/ Irrigated with Saline -Foul Odor after Cleansing No No -Anesthetic Used 5% Lidocaine 5% Lidocaine Gel Gel Lower Limb Edema Present Yes Right Calf (cm) 38.4 69 Right Ankle (cm) 22.5 16 Left Calf (cm) Left Ankle (cm) WC - Nurse 2 - General Ulcer CM Notes Start: 04/21/22 08:04 Freq: Status: Active Protocol: Activity Type Activity Date Activity User E-sign Co-sign Detail Recorded Client Recorded Date Recorded By Document 04/21/22 09:03 MW [id number] 04/21/22 09:14 MW Document 09/16/22 08:59 MW [id number] 04/28/22 09:15 MW Document 05/05/22 09:36 MW [id number] 05/05/22 09:45 MW Document 05/12/22 09:22 MW [id number] 05/12/22 09:53 MW 04/21/22 04/28/22 05/05/22 09:03 08:59 09:36 Wound Center Nurse 2 #1 R medial ankle -Time 09:05 09:00 09:38 -Correct Patient Yes Yes Yes -Correct Side, Site, Position Yes Yes Yes -Correct Procedure Yes Yes Yes -Procedure Performed Yes Yes Yes -Type of Procedure Debridement Debridement Debridement -Clinical Debridement Subcutaneous Subcutaneous Subcutaneous -Tissue Removed Subcutaneous Subcutaneous Subcutaneous -Post Debridement (cm) - Length 1.5 1.5 1.1 -Post Debridement (cm) - Width 1.0 0.7 0.7 -Post Debridement (cm) - Depth 0.1 0.1 0.1 -Total Square (Post) (cm) 1.50 1.05 0.77 -Area of Debridement (cm) - Length 1.5 1.5 1.1 -Area of Debridement (cm) - Width 1.0 0.7 0.7 -Total Square (Area) (cm) 1.50 1.05 0.77 -Tunneling No No No -Undermining/Tunneling No No -Circular Undermining No No No -Wound/Ulcer Outcome Not Healed Not Healed Not Healed -Ulcer Cleansing Rinsed/ Rinsed/ Rinsed/ Irrigated with Irrigated with Irrigated with Saline Saline Saline -Foul Odor after Cleansing No No No -Bioengineered Tissue No No No -Bleeding Controlled with Pressure Pressure Pressure -Treatment Response Procedure Procedure Procedure Tolerated Well Tolerated Well Tolerated Well -Offloading No No No -Debridement - Subq, 1st 20sq cm Yes Yes Yes Pain Scale: 0-10 Numeric Is Patient Pain Free? Yes Yes Yes 05/12/22 09:22 Wound Center Nurse 2 #1 R medial ankle -Time 09:23 -Correct Patient Yes -Correct Side, Site, Position Yes -Correct Procedure Yes -Procedure Performed Yes -Type of Procedure Debridement -Clinical Debridement Subcutaneous -Tissue Removed Subcutaneous -Post Debridement (cm) - Length 0.5 -Post Debridement (cm) - Width 0.4 -Post Debridement (cm) - Depth 0.2 -Total Square (Post) (cm) 0.20 -Area of Debridement (cm) - Length 0.5 -Area of Debridement (cm) - Width 0.4 -Total Square (Area) (cm) 0.20 -Tunneling No -Undermining/Tunneling No -Circular Undermining No -Wound/Ulcer Outcome Not Healed -Ulcer Cleansing Rinsed/ Irrigated with Saline -Foul Odor after Cleansing No -Bioengineered Tissue No -Bleeding Controlled with Pressure -Treatment Response Procedure Tolerated Well -Offloading No -Debridement - Subq, 1st 20sq cm Yes Pain Scale: 0-10 Numeric Is Patient Pain Free? Yes WC - Nurse 3 - General Ulcer D/C NN Start: 04/21/22 08:04 Freq: Status: Active Protocol: Activity Type Activity Date Activity User E-sign Co-sign Detail Recorded Client Recorded Date Recorded By Document 04/24/22 08:26 JF [id number] 04/24/22 08:27 JF Edit Result 04/24/22 08:26 JF (1) [id number] 04/25/22 07:22 PL Document 04/28/22 09:32 DL [id number] 04/28/22 09:33 DL Document 05/05/22 10:15 RB [id number] 05/05/22 10:16 RB Document 05/12/22 09:54 MW [id number] 05/12/22 09:54 MW (1) Right - Multi-Layered Wrap Application => Unna Boot - Right => ($) - Unna Boots (Bilat) ($) 1 => 04/24/22 04/28/22 05/05/22 08:26 09:32 10:15 Vital Signs Temperature (97.8 F-99.1 F) 96.1 F L Temperature Source Temporal Pulse Rate (60-100) 82 Pulse Location Monitor Respiratory Rate (12-18) 16 Respiratory rate source Observation Blood Pressure (90/60-120/80) 127/64 H Blood Pressure Mean (mm Hg) 85 Source Monitor Position Semi-Fowlers Blood Pressure Location Right Arm Pain Scale: 0-10 Numeric Is Patient Pain Free? Yes Yes Yes Teaching: Wound Center Dressing Your Wound -Person Taught -Teaching Method -Response to teaching Wound Care Nurse 3 #1 R medial ankle -Ulcer Cleansing Rinsed/ Rinsed/ Wound Cleanser Irrigated with Irrigated with Saline Saline -Foul Odor after Cleansing No No -Negative Pressure Wound Therapy -Primary Dressing Applied Promogran NonAdherent Contact Layer, Promogran -Other Dressing promogran -Primary Dressing Covered/Secured with Dry Gauze Dry Gauze -Promogran 0 1 Right -Multi-Layered Wrap Application Unna Boot - Unna Boot - Unna Boot - Right ($) Right ($) Right ($) Treatment Response Procedure Procedure Tolerated Well Tolerated Well WC - Visit Discharge Discharge Condition Stable Stable Stable Ambulatory Status Ambulatory Ambulatory Ambulatory Transportation Private Auto Private Auto Private Auto Accompanied by Medication Reconcilliation completed & Yes No provided to patient/care provider Clinical Summary of Care Provided Yes Yes 05/12/22 09:54 Vital Signs Temperature (97.8 F-99.1 F) Temperature Source Pulse Rate (60-100) Pulse Location Respiratory Rate (12-18) Respiratory rate source Blood Pressure (90/60-120/80) Blood Pressure Mean (mm Hg) Source Position Blood Pressure Location Pain Scale: 0-10 Numeric Is Patient Pain Free? Yes Teaching: Wound Center Dressing Your Wound -Person Taught Patient -Teaching Method Discussion -Response to teaching Verbalize understanding Wound Care Nurse 3 #1 R medial ankle -Ulcer Cleansing Rinsed/ Irrigated with Saline -Foul Odor after Cleansing -Negative Pressure Wound Therapy N/A -Primary Dressing Applied NonAdherent Contact Layer -Other Dressing promogran -Primary Dressing Covered/Secured with Dry Gauze & Roll Gauze, Secured with Tape -Promogran Right -Multi-Layered Wrap Application Treatment Response Procedure Tolerated Well WC - Visit Discharge Discharge Condition Stable Ambulatory Status Ambulatory Transportation Private Auto Accompanied by Medication Reconcilliation completed & No provided to patient/care provider Clinical Summary of Care Provided Yes Assessment/Plan Assessment/Plan (1) Venous insufficiency of both lower extremities: CODE(S): I87.2 - Venous insufficiency (chronic) (peripheral) (2) Venous ulcer of right lower extremity with varicose veins: CODE(S): I83.019 - Varicose veins of right lower extremity with ulcer of unspecified site; L97.919 - Non-pressure chronic ulcer of unspecified part of right lower leg with unspecified severity (3) Ulcer of right lower extremity with fat layer exposed: CODE(S): L97.912 - Non-pressure chronic ulcer of unspecified part of right lower leg with fat layer exposed PLAN: Plan Debridement performed today in clinic as annotated above. At home wound-care instructions: Her ulcer will be dressed with Promogran for moderate drainage, cover with adaptic and gauze wrap with changes daily. Wear compression stocking 20-30 mm Hg daily. Off-loading: The patient was instructed to avoid pressure and friction on the affected areas. Reposition every 2 hours at minimum. Avoid prolonged standing and/or dangling of legs. When seated, feet should be elevated at chest level. Frequent ambulation is encouraged. Diet: Patient encouraged to increase protein intake while taking caution to avoid high carbohydrate and/or sugar intake. Labs/cultures/imaging: Wound culture negative. She has undergone vascular testing at [facility] and has seen Dr. Ross and vascular procedure was discussed but she has not heard from his office regarding scheduling the procedure. Encouraged her to call Dr. Ross's office to schedule procedure. Follow-up: Return in 1 week for wound care follow up. Return sooner or report to the emergency room should symptoms worsen, or new symptoms arise. Note: Together Mobile speech recognition radiology technologist software was used to create portions of this document. Sound-alike and misspelled words, as well as other radiology technologist errors may be contained in the documentation.
== END 2022-05-12 23:59 | disposition home or self-care (01) ==
LOC: WC 08:30
PROVIDERS: PCP Nurse Practitioner Family; Visit Provider Family Medicine
DX: I83.013 Varicose veins of right lower extremity with ulcer of ankle (principal); L97.312 Non-pressure chronic ulcer of right ankle with fat layer exposed; L03.115 Cellulitis of right lower limb; I10 Essential (primary) hypertension; Z79.899 Other long term (current) drug therapy; Z79.82 Long term (current) use of aspirin; M19.90 Unspecified osteoarthritis, unspecified site
CPT/HCPCS: 11042; 29580; 87070; 87075; 87205; 99213; G0463

== ENCOUNTER 2022-06-02 09:00 | Outpatient (RCR) | payer MEDICAID, SELFPAY ==
[2022-05-13 01:43] VITALS: BP 123/72; PULSE 69; RESP 16; TEMP 36.1
[2022-05-19 09:11] VITALS: BP 130/93; PULSE 71; TEMP 36.2
--- NOTE | 2022-05-19 11:25 | PN.PCM_ITS ---
History of Present Illness Date of Service: 05/19/22 Chief Complaint: ulcer and cellulitis right ankle History of Wound: Donna is a very pleasant 56 yo female that presents to the wound healing center today for evaluation and treatment of a nonhealing ulcer of her right medial ankle that has been present for approximately 3 months. The ulcer began after she had an episode of cellulitis and swelling. 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 She has been treated with antibiotics 3 times over the last several months by her primary care doctor but no wound culture has been taken. Her pain improves with antibiotic treatment but typically returns shortly after she completes a course of antibiotics. She has itching to the surrounding area. She has been using compression stockings that are 20-30 mm Hg but there has been little progress in wound healing. She saw Dr. Ross in [place] and also had vascular testing done at [facility] in the last 2 months and when she saw Dr. Ross he told her that his office would contact her to schedule procedure at his office in [place] but she has not heard from their office. There is mild to moderate drainage from the ulcer. She has also been using Haylie/Promogran to the ulcer for several weeks with no improvement. She denies any signs of systemic infection such as fever, chills, nausea, vomiting. Progress of Wound: Donna tolerated treatment with Promogran to her ulcer and compression stockings. There is significant improvement in the size of her ulcer. Objective Data Objective Data Vital Signs: Vital Signs Temp Pulse Resp BP 97.2 F L 71 16 130/93 H 05/19/22 09:11 05/19/22 09:11 05/13/22 01:43 05/19/22 09:11 Physical Exam Const alert, oriented x3 and no apparent distress General Appearance: cooperative and comfortable HEENT normocephalic and head/scalp atraumatic Resp normal respiratory effort Effort and Inspection: able to speak in complete sentences Cardio regular rate and regular rhythm Skin General Skin Exam: venous stasis and dermatitis Wounds: wounds noted Wound Narrative: as in clinical panel Psych mental status grossly normal, thought process normal, cooperative and affect normal Debridement Note Debridement Note Wound debrided: right medial ankle Laterality: Right Type of Debridement: Excisional debridement Anesthesia Used: 4% Lidocaine Solution, 5% Lidocaine Gel and Cetacaine Depth: Down to and including healthy tissue and in the subcutaneous layer Percentage of wound debrided: 100 Instrument Used: 3mm curette Tissue Removed: Yellow slough, devitalized tissue Severity: Fat Layer Exposed Amount of bleeding with debridement: Mild Bleeding Controlled with: Compression and gauze Patient tolerated procedure: Patient tolerated procedure well Post-Debridement Measurements and Additional Note: Post-Debridement Measurements/Treatment HANG - Nurse 1 - General Ulcer Assessment Start: 05/19/22 09:10 Freq: Status: Active Protocol: MILLICENT Activity Type Activity Date Activity User E-sign Co-sign Detail Recorded Client Recorded Date Recorded By Document 05/19/22 09:11 ARMANDO [id number] 05/19/22 09:13 ARMANDO 05/19/22 09:11 HANG - Today's Visit Information Type of service Follow-up Visit (Physician/SCRUB WHEEL OPERATOR ) Arrival Mode Ambulatory Patient Identification Verified (Name & Yes ) Vital Signs Temperature (97.8 F-99.1 F) 97.2 F L Temperature Source Temporal Pulse Rate (60-100) 71 Pulse Location Monitor Blood Pressure (90/60-120/80) 130/93 H Blood Pressure Mean (mm Hg) 105 Source Monitor Position Semi-Fowlers Blood Pressure Location Left Arm History Since Last Visit- (Skip if this is Patient's initial visit) Have you changed medications since your No last visit? Any new allergies or adverse reactions No Had a fall/change in ADL's that may No increase risk of falls Signs or symptoms of abuse and/or No neglect since last visit Have you been in the hospital since your No last visit? Has dressing in place as prescribed Yes Has compression in place as prescribed N/A Has offloadiing in place as prescribed N/A Experienced any changes in pain level or No management Left Footwear Regular Shoe Right Footwear Regular Shoe Pain Scale: 0-10 Numeric Is Patient Pain Free? Yes - Nurse 1 - General Ulcer Measurement Start: 05/19/22 09:10 Freq: Status: Active Protocol: Activity Type Activity Date Activity User E-sign Co-sign Detail Recorded Client Recorded Date Recorded By Document 05/19/22 09:11 ARMANDO [id number] 05/19/22 09:13 ARMANDO 05/19/22 09:11 Wound Center Nurse 1 #1 R medial ankle -Current Size (cm) - Length 0.1 -Current Size (cm) - Width 0.1 -Current Size (cm) - Depth 0.1 -Total Square Cm 0.01 -Exudate Amt Small -Exudate Type Serosanguineous -Wound Margin Distinct, Outline Attached -Granulation Amt Medium (34-66%) -Granulation Quality [place] -Necrosis Amt Small (1-33%) -Necrotic Tissue Type Adherent Slough -Texture (Leeann-wound Skin Appearance) Assessed, Scarring -Moisture (Leeann-wound Skin Appearance) No Abnormality, Assessed -Color (Leeann-wound Skin Appearance) No Abnormality, Assessed -Temperature (Leeann-wound Skin No Abnormality Appearance) (Pt Warm) -Tenderness on Palpation (Leeann-wound No Skin Appearance) -Ulcer Cleansing Rinsed/ Irrigated with Saline -Foul Odor after Cleansing No -Anesthetic Used 5% Lidocaine Gel WC - Nurse 2 - General Ulcer CM Notes Start: 05/19/22 09:10 Freq: Status: Active Protocol: Activity Type Activity Date Activity User E-sign Co-sign Detail Recorded Client Recorded Date Recorded By Document 05/19/22 09:38 MW [id number] 05/19/22 09:44 MW 05/19/22 09:38 Wound Center Nurse 2 -Time 09:38 -Correct Patient Yes -Correct Side, Site, Position Yes -Correct Procedure Yes -Procedure Performed Yes -Type of Procedure Debridement -Clinical Debridement Subcutaneous -Tissue Removed Subcutaneous -Post Debridement (cm) - Length 0.3 -Post Debridement (cm) - Width 0.3 -Post Debridement (cm) - Depth 0.1 -Total Square (Post) (cm) 0.09 -Area of Debridement (cm) - Length 0.3 -Area of Debridement (cm) - Width 0.3 -Total Square (Area) (cm) 0.09 -Tunneling No -Undermining/Tunneling No -Circular Undermining No -Wound/Ulcer Outcome Not Healed -Ulcer Cleansing Rinsed/ Irrigated with Saline -Foul Odor after Cleansing No -Bioengineered Tissue No -Bleeding Controlled with Pressure -Treatment Response Procedure Tolerated Well -Offloading No -Debridement - Subq, 1st 20sq cm Yes Pain Scale: 0-10 Numeric Is Patient Pain Free? Yes WC - Nurse 3 - General Ulcer D/C NN Start: 05/19/22 09:10 Freq: Status: Active Protocol: Activity Type Activity Date Activity User E-sign Co-sign Detail Recorded Client Recorded Date Recorded By Document 05/19/22 09:53 ARMANDO [id number] 05/19/22 09:53 ARMANDO 05/19/22 09:53 Wound Care Nurse 3 #1 R medial ankle -Ulcer Cleansing Rinsed/ Irrigated with Saline -Primary Dressing Applied NonAdherent Contact Layer, Promogran -Primary Dressing Covered/Secured with Dry Gauze, Secured with Tape -Promogran 1 Pain Scale: 0-10 Numeric Is Patient Pain Free? Yes WC - Visit Discharge Discharge Condition Stable Ambulatory Status Ambulatory Transportation Private Auto Accompanied by Assessment/Plan Assessment/Plan (1) Venous insufficiency of both lower extremities: CODE(S): I87.2 - Venous insufficiency (chronic) (peripheral) (2) Venous ulcer of right lower extremity with varicose veins: CODE(S): I83.019 - Varicose veins of right lower extremity with ulcer of unspecified site; L97.919 - Non-pressure chronic ulcer of unspecified part of right lower leg with unspecified severity (3) Ulcer of right lower extremity with fat layer exposed: CODE(S): L97.912 - Non-pressure chronic ulcer of unspecified part of right lower leg with fat layer exposed PLAN: Plan Debridement performed today in clinic as annotated above. At home wound-care instructions: Her ulcer will be dressed with Promogran for moderate drainage, cover with adaptic and gauze wrap with changes daily. Wear compression stocking 20-30 mm Hg daily. Will add a venous stasis pad for extra compression. Off-loading: The patient was instructed to avoid pressure and friction on the affected areas. Reposition every 2 hours at minimum. Avoid prolonged standing and/or dangling of legs. When seated, feet should be elevated at chest level. Frequent ambulation is encouraged. Diet: Patient encouraged to increase protein intake while taking caution to avoid high carbohydrate and/or sugar intake. Labs/cultures/imaging: Wound culture negative. She has undergone vascular testing at [facility] and has seen Dr. Ross and vascular procedure was discussed but she has not heard from his office regarding scheduling the proc edure. Encouraged her to call Dr. Ross's office to schedule procedure. Follow-up: Return in 2 weeks for wound care follow up. Return sooner or report to the emergency room should symptoms worsen, or new symptoms arise. Note: [employer] speech recognition supervisor bottle machines software was used to create portions of this document. Sound-alike and misspelled words, as well as other supervisor bottle machines errors may be contained in the documentation.
[2022-06-02 08:58] VITALS: BP 132/77; PULSE 79; TEMP 36.1
--- NOTE | 2022-06-02 13:21 | PCM.WC.PN ---
History of Present Illness Date of Service: 06/02/22 Chief Complaint: ulcer and cellulitis right ankle History of Wound: Donna is a very pleasant 56 yo female that presents to the wound healing center today for evaluation and treatment of a nonhealing ulcer of her right medial ankle that has been present for approximately 3 months. The ulcer began after she had an episode of cellulitis and swelling. 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 She has been treated with antibiotics 3 times over the last several months by her primary care doctor but no wound culture has been taken. Her pain improves with antibiotic treatment but typically returns shortly after she completes a course of antibiotics. She has itching to the surrounding area. She has been using compression stockings that are 20-30 mm Hg but there has been little progress in wound healing. She saw Dr. Ross in [place] and also had vascular testing done at [facility] in the last 2 months and when she saw Dr. Ross he told her that his office would contact her to schedule procedure at his office in [place] but she has not heard from their office. There is mild to moderate drainage from the ulcer. She has also been using Haylie/Promogran to the ulcer for several weeks with no improvement. She denies any signs of systemic infection such as fever, chills, nausea, vomiting. Progress of Wound: Donna tolerated treatment with Promogran to her ulcer and compression stockings. There is significant improvement in the size of her ulcer. It is nearly healed. Objective Data Objective Data Vital Signs: Vital Signs Temp Pulse Resp BP 97.0 F L 79 16 132/77 H 06/02/22 08:58 06/02/22 08:58 05/13/22 01:43 06/02/22 08:58 Physical Exam Const alert, oriented x3 and no apparent distress General Appearance: cooperative and comfortable HEENT normocephalic and head/scalp atraumatic Resp normal respiratory effort Effort and Inspection: able to speak in complete sentences Cardio regular rate and regular rhythm Skin General Skin Exam: venous stasis and dermatitis Wounds: wounds noted Wound Narrative: as in clinical panel Psych mental status grossly normal, thought process normal, cooperative and affect normal Debridement Note Debridement Note Wound debrided: right medial ankle Laterality: Right No debridement was completed: No debridement was completed today Post-Debridement Measurements and Additional Note: Post-Debridement Measurements/Treatment WC - Nurse 1 - General Ulcer Assessment Start: 05/19/22 09:10 Freq: Status: Active Protocol: MILLICENT Activity Type Activity Date Activity User E-sign Co-sign Detail Recorded Client Recorded Date Recorded By Document 05/19/22 09:11 ARMANDO [id number] 05/19/22 09:13 KR Document 06/02/22 08:58 KR [id number] 06/02/22 09:01 KR 05/19/22 06/02/22 09:11 08:58 - Today's Visit Information Type of service Follow-up Visit Follow-up Visit (Physician/BEN DAY ARTIST (Physician/BEN DAY ARTIST ) ) Arrival Mode Ambulatory Ambulatory Patient Identification Verified (Name & Yes Yes ) Vital Signs Temperature (97.8 F-99.1 F) 97.2 F L 97.0 F L Temperature Source Temporal Temporal Pulse Rate (60-100) 71 79 Pulse Location Monitor Monitor Blood Pressure (90/60-120/80) 130/93 H 132/77 H Blood Pressure Mean (mm Hg) 105 95 Source Monitor Monitor Position Semi-Fowlers Semi-Fowlers Blood Pressure Location Left Arm Left Arm History Since Last Visit- (Skip if this is Patient's initial visit) Have you changed medications since your No No last visit? Any new allergies or adverse reactions No No Had a fall/change in ADL's that may No No increase risk of falls Signs or symptoms of abuse and/or No No neglect since last visit Have you been in the hospital since your No No last visit? Has dressing in place as prescribed Yes Yes Has compression in place as prescribed N/A N/A Has offloadiing in place as prescribed N/A N/A Experienced any changes in pain level or No No management Left Footwear Regular Shoe Regular Shoe Right Footwear Regular Shoe Regular Shoe Pain Scale: 0-10 Numeric Is Patient Pain Free? Yes Yes - Nurse 1 - General Ulcer Measurement Start: 05/19/22 09:10 Freq: Status: Active Protocol: Activity Type Activity Date Activity User E-sign Co-sign Detail Recorded Client Recorded Date Recorded By Document 05/19/22 09:11 ARMANDO [id number] 05/19/22 09:13 KR Document 06/02/22 08:58 ARMANDO [id number] 06/02/22 09:01 KR 05/19/22 06/02/22 09:11 08:58 Wound Center Nurse 1 #1 R medial ankle -Current Size (cm) - Length 0.1 0.1 -Current Size (cm) - Width 0.1 0.1 -Current Size (cm) - Depth 0.1 0.1 -Total Square Cm 0.01 0.01 -Exudate Amt Small None Present -Exudate Type Serosanguineous -Wound Margin Distinct, Distinct, Outline Outline Attached Attached -Granulation Amt Medium (34-66%) None Present (0 %) -Granulation Quality [place] -Necrosis Amt Small (1-33%) None Present (0 %) -Necrotic Tissue Type Adherent Slough -Texture (Leeann-wound Skin Appearance) Assessed, Assessed, Scarring Scarring -Moisture (Leeann-wound Skin Appearance) No Abnormality, No Abnormality, Assessed Assessed -Color (Leeann-wound Skin Appearance) No Abnormality, No Abnormality, Assessed Assessed -Temperature (Leeann-wound Skin No Abnormality No Abnormality Appearance) (Pt Warm) (Pt Warm) -Tenderness on Palpation (Leeann-wound No No Skin Appearance) -Ulcer Cleansing Rinsed/ Rinsed/ Irrigated with Irrigated with Saline Saline -Foul Odor after Cleansing No No -Anesthetic Used 5% Lidocaine 5% Lidocaine Gel Gel WC - Nurse 2 - General Ulcer CM Notes Start: 05/19/22 09:10 Freq: Status: Active Protocol: Activity Type Activity Date Activity User E-sign Co-sign Detail Recorded Client Recorded Date Recorded By Document 05/19/22 09:38 MW [id number] 05/19/22 09:44 MW Document 06/02/22 09:29 MW [id number] 06/02/22 09:34 MW 05/19/22 06/02/22 09:38 09:29 Wound Center Nurse 2 #1 R medial ankle -Time 09:38 09:29 -Correct Patient Yes Yes -Correct Side, Site, Position Yes Yes -Correct Procedure Yes Yes -Procedure Performed Yes No -Type of Procedure Debridement -Clinical Debridement Subcutaneous -Tissue Removed Subcutaneous -Post Debridement (cm) - Length 0.3 0 -Post Debridement (cm) - Width 0.3 0 -Post Debridement (cm) - Depth 0.1 0 -Total Square (Post) (cm) 0.09 0 -Area of Debridement (cm) - Length 0.3 -Area of Debridement (cm) - Width 0.3 -Total Square (Area) (cm) 0.09 -Tunneling No -Undermining/Tunneling No -Circular Undermining No -Wound/Ulcer Outcome Not Healed Healed- Epithelialized -Ulcer Cleansing Rinsed/ Irrigated with Saline -Foul Odor after Cleansing No -Bioengineered Tissue No -Bleeding Controlled with Pressure -Treatment Response Procedure Tolerated Well -Offloading No -Debridement - Subq, 1st 20sq cm Yes Pain Scale: 0-10 Numeric Is Patient Pain Free? Yes Yes WC - Nurse 3 - General Ulcer D/C NN Start: 05/19/22 09:10 Freq: Status: Active Protocol: Activity Type Activity Date Activity User E-sign Co-sign Detail Recorded Client Recorded Date Recorded By Document 05/19/22 09:53 ARMANDO [id number] 05/19/22 09:53 ARMANDO 05/19/22 09:53 Wound Care Nurse 3 #1 R medial ankle -Ulcer Cleansing Rinsed/ Irrigated with Saline -Primary Dressing Applied NonAdherent Contact Layer, Promogran -Primary Dressing Covered/Secured with Dry Gauze, Secured with Tape -Promogran 1 Pain Scale: 0-10 Numeric Is Patient Pain Free? Yes WC - Visit Discharge Discharge Condition Stable Ambulatory Status Ambulatory Transportation Private Auto Accompanied by Assessment/Plan Assessment/Plan (1) Venous insufficiency of both lower extremities: CODE(S): I87.2 - Venous insufficiency (chronic) (peripheral) (2) Venous ulcer of right lower extremity with varicose veins: CODE(S): I83.019 - Varicose veins of right lower extremity with ulcer of unspecified site; L97.919 - Non-pressure chronic ulcer of unspecified part of right lower leg with unspecified severity (3) Ulcer of right lower extremity with fat layer exposed: CODE(S): L97.912 - Non-pressure chronic ulcer of unspecified part of right lower leg with fat layer exposed PLAN: Plan Evaluated ulcer today in clinic as annotated above. At home wound-care instructions: Her ulcer will be dressed with Promogran for moderate drainage, cover with silicone bordered dressing. Wear compression stocking 20-30 mm Hg daily. Off-loading: The patient was instructed to avoid pressure and friction on the affected areas. Reposition every 2 hours at minimum. Avoid prolonged standing and/or dangling of legs. When seated, feet should be elevated at chest level. Frequent ambulation is encouraged. Diet: Patient encouraged to increase protein intake while taking caution to avoid high carbohydrate and/or sugar intake. Labs/cultures/imaging: Wound culture negative. She has undergone vascular testing at [facility] and has seen Dr. Ross and vascular procedure was discussed but she has not heard from his office regarding scheduling the procedure. Encouraged her to call Dr. Ross's office to schedule procedure. Follow-up: She will be discharged today. Return sooner or report to the emergency room should symptoms worsen, or new symptoms arise. Note: [email or web address] speech recognition conveyor feeder offbearer software was used to create portions of this document. Sound-alike and misspelled words, as well as other conveyor feeder offbearer errors may be contained in the documentation.
== END 2022-06-06 09:34 | disposition home or self-care (01) ==
LOC: WC 09:00
PROVIDERS: PCP Nurse Practitioner Family; Visit Provider Family Medicine
DX: I83.013 Varicose veins of right lower extremity with ulcer of ankle (principal); L97.312 Non-pressure chronic ulcer of right ankle with fat layer exposed
CPT/HCPCS: 11042; 99213; G0463

== ENCOUNTER → 2022-06-06 | Outpatient (CLI) | payer MEDICAID, SELFPAY ==
--- NOTE | 2022-06-06 12:50 | VDLE_ITS ---
Reason For Study: LEG PAIN RIGHT CFV is compressible, spontaneous, competent and demonstrates pulsatile venous flow. FV is compressible, spontaneous, competent and demonstrates pulsatile venous flow. POP V is compressible, spontaneous, phasic, competent and demonstrates normal augmentation. T/P Trunk is compressible. PTV is compressible. RT PerV is compressible. SFJ is INCOMPETENT and measures 1.03 x 1.09 cm. GSV proximal thigh measures 1.11 x 1.18 cm. GSV at knee measures 1.82 x 1.93 cm. GSV INCOMPETENT throughout for greater than 0.5 seconds. SSV proximal calf is competent and measures 0.29 x 0.30 cm. Procedure This is a venous duplex using B-mode, color flow and spectral Doppler. Exam performed in department. The exam was diagnostic. VL/Venous Duplex US, Unilateral Interpretation Summary No DVT or SVT. Pulsatile flow noted through deep veins. Right gsv with reflux t hroughout and dilated 11 to 19mm. Ordering Physician: Severino Ross Referring Physician: Severino Ross Performed By: Jesus Duvall RVT
== END | disposition home or self-care (01) ==
LOC: CVS 12:49
PROVIDERS: PCP Nurse Practitioner Family; Referring Provider Surgery Vascular Surgery; Visit Provider Surgery Vascular Surgery
DX: M79.604 Pain in right leg (principal)
CPT/HCPCS: 93971

== ENCOUNTER → 2022-11-28 | Outpatient (CLI) | payer MEDICAID, SELFPAY ==
--- NOTE | 2022-11-28 17:33 | US_ITS ---
STUDY: THYROID ULTRASOUND REASON FOR EXAM: Female, 57 years old. Recheck nodule and goiter TECHNIQUE: Ultrasound evaluation of the thyroid was performed with real-time and static guzman-scale imaging. COMPARISON: May 19, 2021 FINDINGS: RIGHT LOBE: The right lobe of the thyroid gland measures 5.3 x 2.3 x 1.9 cm. There is a homogeneous echotexture. There is a small cystic nodule in the lower pole measuring 5 x 5 x 4 mm demonstrating regular margins and perinodular vascularity. LEFT LOBE: The left lobe of the thyroid gland measures 6.5 3.5 x 2.6 cm. There is a homogeneous echotexture. There are 2 nodules in the lower pole of the larger measuring 3.8 x 3.3 x 2.5 cm demonstrating solid appearance with regular margins ángel nodular and intranodular vascularity.. Small nodule measures 1.8 x 1.2 x 0.9 cm ISTHMUS: The isthmus measures 5 mm . The regional lymph nodes are normal. There has been slight reduction in size of the thyroid as well as nodules since previous study. No new nodules identified US/Thyroid IMPRESSION: Enlarged thyroid with multiple nodules stable since previous exam.. Electronically Signed: Kemar Persaud MD at 20:42 EDT ,
== END | disposition home or self-care (01) ==
LOC: US 17:32
PROVIDERS: PCP Registered Nurse; Referring Provider Surgery; Visit Provider Surgery
DX: E04.2 Nontoxic multinodular goiter (principal)
CPT/HCPCS: 76536

== ENCOUNTER → 2022-12-18 | Outpatient (CLI) | payer MEDICAID, SELFPAY ==
[2022-12-18 15:52] LABS: T4 Total, Thyroxin 8.2 ug/dL (4.8-13.9); Thyroid Stim Hormone (TSH) 1.26 uIU/mL (0.358-3.74)
== END | disposition home or self-care (01) ==
PROVIDERS: PCP Registered Nurse; Referring Provider Surgery; Visit Provider Surgery
DX: E04.1 Nontoxic single thyroid nodule (principal); E04.2 Nontoxic multinodular goiter
CPT/HCPCS: 36415; 84436; 84443; 84481

== ENCOUNTER 2023-03-17 16:14 | Emergency (ER) | payer MEDICAID, SELFPAY ==
[2023-03-17 16:15] VITALS: BP 128/76; PULSE 78; RESP 16; TEMP 36.6; O2SAT 98; BMI 40.1
--- NOTE | 2023-03-17 16:28 | EDS_ITS ---
HPI <ZAHEER Fisher - Last Filed: 03/17/23 17:25> History of Present Illness Chief Complaint: Lower Extremity Injury Narrative Narrative: 57-year-old female presents with left great toe swelling and redness over the last 3 days. She states its painful throbbing sensation especially on the bottom of the toe. No injury. She is not sure if maybe she could have been bitten by an insect. She denies fever or chills. No history of gout or diabetes. PFSH <ZAHEER Fisher - Last Filed: 03/17/23 17:25> [facility] Medical History Anxiety Arthritis Back pain Cardiology follow-up encounter Closed head injury Complaint of melena COVID-19 History of echocardiogram History of edema History of irregular heartbeat History of left heart catheterization (LHC) (~03/29/21) History of pain when walking History of PSVT (paroxysmal supraventricular tachycardia) History of stress test History of ventricular tachycardia Hypertension Leg cramps Migraine headache Multinodular goiter Non-smoker Open wound Pneumonia involving left lung Post-menopausal Premature atrial contraction Premature ventricular contraction PVC (premature ventricular contraction) Shortness of breath on exertion Thyroid nodule Wears glasses Home Medications Lactobacillus acidophilus 1.5 mg (250 million cell) capsule 100 mmu cells PO DAILY supplement 03/23/21 [History Last Taken Unknown] acetaminophen 325 mg tablet 325 mg PO Q4H PRN Pain 03/23/21 [History Last Taken Unknown] aspirin 81 mg tablet,delayed release (Adult Low Dose Aspirin) 81 mg PO DAILY heart health 03/23/21 [History Last Taken 03/27/21] cholecalciferol (vitamin D3) 50 mcg (2,000 unit) capsule 50 mcg PO DAILY vitamin 03/23/21 [History Last Taken 03/28/21] ibuprofen 200 mg tablet (Advil) 400 mg PO Q4H PRN Pain 03/23/21 [History Last Taken Unknown] clonazepam 0.5 mg tablet 0.5 mg PO QHS 05/17/21 [History Last Taken Unknown] amitriptyline 25 mg tablet 25 mg PO QHS 07/18/21 [History Last Taken Unknown] sumatriptan succinate 50 mg tablet 50 mg PO PRN PRN MIGRAINES 07/18/21 [History Last Taken Unknown] flecainide 100 mg tablet 100 mg PO Q12H 10/18/21 [History Last Taken 12/21/21] apple cider vinegar 500 mg tablet 500 mg PO DAILY 12/19/21 [History Last Taken Unknown] magnesium 500 mg tablet 15 mg PO DAILY 12/19/21 [History Last Taken Unknown] omeprazole 40 mg capsule,delayed release 40 mg PO DAILY #30 caps 12/21/21 [Rx Last Taken Unknown] metoprolol tartrate 25 mg tablet 25 mg PO BID 01/31/22 [History Last Taken Unk nown] cephalexin 500 mg capsule 500 mg PO Q6 #28 CAPSULES 03/17/23 [Rx Last Taken Unknown] hydrocodone-acetaminophen 5-325mg 5mg-325mg 1 tab PO Q6H PRN PRN Pain 3 days #10 TABLETS 03/17/23 [Rx Last Taken Unknown] naproxen 500 mg tablet (Naprosyn) 500 mg PO BID PRN pain #20 tabs 03/17/23 [Rx Last Taken Unknown] sulfamethoxazole 800 mg-trimethoprim 160 mg tablet (Bactrim DS) 1 tab PO BID 7 days #14 tabs 03/17/23 [Rx Last Taken Unknown] Allergy/AdvReac Type Severity Reaction Status Date / Time latex Allergy Rash Verified 03/17/23 16:15 Family History Father Heart disease Mother Heart disease Surgical History History of cardiac catheterization Hx of prior ablation treatment S/P S/P thyroid biopsy (~07/2021) Social History Smoking Status: Never smoker alcohol intake: never substance use type: does not use caffeine: Yes what type of physical activity do you participate in: walking, aerobics and other details: stepper frequency: 5-6 times per week do you feel safe at home: Yes additional social history: - Landon WILSON <ZAHEER Fisher - Last Filed: 03/17/23 17:25> [facility] ED ROS Narrative Constitutional: Negative for fever, chills, malaise. GI: Negative for nausea, vomiting. Neuro: Negative for motor/sensory dysfunction. Skin: Negative for wound. Musc: Positive for left great toe pain, swelling. EXAM <ZAHEER Fisher - Last Filed: 03/17/23 17:25> Physical Exam Narrative Exam Narrative: CONST: Patient sitting in no acute distress. EYES: Normal inspection. NECK: Normal inspection. RESP: No respiratory distress, CTAB. CVS: Regular rate and rhythm, no murmur, no gallop. SKIN: Color normal, no rash, warm, dry, intact. EXTREMITIES: Left great toe is swollen and erythematous and tender to palpation on the plantar surface. No fluctuance or crepitus, dry skin but no open wound. There is no tenderness of the MTP joint or the rest of the ankle or foot. No calf tenderness. Full range of motion, normal strength and sensation, 2+ DP pulse. Brisk cap refill. NEURO: Oriented x4. PSYCH: Normal affect. Const Vital Signs: 03/17/23 16:15 Temperature 97.8 F Temperature Source Temporal Pulse Rate 78 Respiratory Rate 16 Blood Pressure 128/76 H Blood Pressure Mean 93 Pulse Ox 98 Oxygen Delivery Method Room Air <Dr. Chika Neri DO - Last Filed: 03/17/23 22:16> Physical Exam Const Vital Signs: 03/17/23 16:15 Temperature 97.8 F Temperature Source Temporal Pulse Rate 78 Respiratory Rate 16 Blood Pressure 128/76 H Blood Pressure Mean 93 Pulse Ox 98 Oxygen Delivery Method Room Air MDM <ZAHEER Fisher - Last Filed: 03/17/23 17:25> [facility] MDM Narrative Medical decision making narrative: History gathered from patient and spouse Patient's left great toe is swollen and red. She is tender over the plantar aspect. There is no evidence of abscess. Its not over the MTP and seems more consistent with cellulitis than gout. X-ray shows no acute findings. She was started on Keflex, Bactrim, and given naproxen and [place] for pain. She was advised on return precautions and discharged in stable condition. ED attending interpretation of the left great toe shows no evidence of fracture or acute osseous abnormality. I have personally performed a face to face assessment of the patient and have reviewed the SUSANA Note. I performed a substantive portion of the visit including all aspects of the following. My case findings include: History is [patient presents with pain to the left great toe that started 3 days ago. She denies any injury. She states that started in the middle of the night. She denies any fever or chills or sweats. Denies any cuts or wounds to the toe. She does have history of cellulitis in her left foot.] Exam is [HEENT-PERRLA, EOMI. Cranial nerves II through XII grossly intact. TMs clear. Mucous membranes moist. No adenopathy. Cardiovascular-regular rate and rhythm without murmur or ectopy Lungs-clear to auscultation, chest wall stable without crepitus or subcu emphysema Abdomen-normoactive bowel sounds, soft, nontender, no rebound or rigidity, no peritoneal signs. Extremities-intact ?4. Left foot-evaluation of the left great toe does reveal soft tissue swelling and diffuse erythema. She has tenderness palpation over the plantar aspect of the toe. There are some subtle erythema extending towards the MTP joint. No abscess palpated.] Medical Decison Making [patient presents with a red swollen toe that is painful without history of trauma. Clinically I suspect the cellulitis or infectious process. I do not feel there is any drainable abscess at this time. Patient will be started on Keflex and Bactrim. She will be referred to podiatry for follow-up. Patient advised return if increasing pain, swelling, purulent drainage, or condition should worsen anyway.] Other additions or changes: [None] Radiography Diagnostic Testing: Clinical Impression(s) from Imaging Studies Toe X-Ray 03/17/23 16:40 IMPRESSION: Negative left toe x-rays. Electronically Signed: Ross Elam MD at 17:14 EDT , <Dr. Chika Neri, DO - Last Filed: 03/17/23 22:16> [facility] Narrative Medical decision making narrative: I have personally performed a face to face assessment of the patient and have reviewed the SUSANA Note. I performed a substantive portion of the visit including all aspects of the following. My case findings include: History is [patient presents with pain to the left great toe that started 3 days ago. She denies any injury. She states that started in the middle of the night. She denies any fever or chills or sweats. Denies any cuts or wounds to the toe. She does have history of cellulitis in her left foot.] Exam is [HEENT-PERRLA, EOMI. Cranial nerves II through XII grossly intact. TMs clear. Mucous membranes moist. No adenopathy. Cardiovascular-regular rate and rhythm without murmur or ectopy Lungs-clear to auscultation, chest wall stable without crepitus or subcu emphysema Abdomen-normoactive bowel sounds, soft, nontender, no rebound or rigidity, no peritoneal signs. Extremities-intact ?4. Left foot-evaluation of the left great toe does reveal soft tissue swelling and diffuse erythema. She has tenderness palpation over the plantar aspect of the toe. There are some subtle erythema extending towards the MTP joint. No abscess palpated.] Medical Decison Making [patient presents with a red swollen toe that is painful without history of trauma. Clinically I suspect the cellulitis or infectious process. I do not feel there is any drainable abscess at this time. Patient will be started on Keflex and Bactrim. She will be referred to podiatry for follow-up. Patient advised return if increasing pain, swelling, purulent drainage, or condition should worsen anyway.] Other additions or changes: [None] Radiography Diagnostic Testing: Clinical Impression(s) from Imaging Studies Toe X-Ray 03/17/23 16:40 IMPRESSION: Negative left toe x-rays. Electronically Signed: Ross Elam MD at 17:14 EDT , Discharge Plan Triage Chief Complaint: Lower Extremity Injury ED Midlevel Provider: Maya Arias ED Provider: Chika Neri Dx/Rx/DC Orders Clinical Impression: Cellulitis of great toe of left foot Instructions: Cellulitis Dc Prescriptions: New cephalexin 500 mg capsule 500 mg PO Q6 Qty: 28 0RF sulfamethoxazole-trimethoprim [Bactrim DS] 800-160 mg tablet 1 tab PO BID 7 Days Qty: 14 0RF naproxen [Naprosyn] 500 mg tablet 500 mg PO BID PRN (Reason: pain) Qty: 20 0RF hydrocodone-acetaminophen 5-325 mg tablet 1 tab PO Q6H PRN PRN (Reason: Pain) 3 Days Qty: 10 0RF No Action clonazepam 0.5 mg tablet 0.5 mg PO QHS amitriptyline 25 mg tablet 25 mg PO QHS sumatriptan succinate 50 mg tablet 50 mg PO PRN PRN (Reason: MIGRAINES) flecainide 100 mg tablet 100 mg PO Q12H magnesium 500 mg Tablet 15 mg PO DAILY apple cider vinegar 500 mg Tablet 500 mg PO DAILY omeprazole 40 mg capsule,delayed release(DR/EC) 40 mg PO DAILY Qty: 30 0RF acetaminophen 325 mg tablet 325 mg PO Q4H PRN (Reason: Pain) aspirin [Adult Low Dose Aspirin] 81 mg tablet,delayed release (DR/EC) 81 mg PO DAILY cholecalciferol (vitamin D3) 50 mcg (2,000 unit) capsule 50 mcg PO DAILY ibuprofen [Advil] 200 mg tablet 400 mg PO Q4H PRN (Reason: Pain) Lactobacillus acidophilus 1.5 mg (250 million cell) capsule 100 mmu cells PO DAILY metoprolol tartrate 25 mg tablet 25 mg PO BID Rx Instructions: 12.5mg in AM, and 25mg at HS Primary Care Provider: Yris Arreaga NP Referrals: Kemar Perdomo DPM [Med Staff - Active Staff] - Yris Arreaga NP, [facility] [facility] [Primary Care Provider] - Activity Restrictions/Additional Instructions: Take the antibiotics as prescribed. If the redness worsens or spreads up your leg or you develop a fever please come back to the emergency room. Otherwise call the foot doctor for a follow-up appointment. I prescribed naproxen and no rco for pain. Disposition Disposition: Home, Self Care Discharge Date/Time: 03/17/23 17:33
--- NOTE | 2023-03-17 16:40 | RAD_ITS ---
EXAM: XR LEFT TOES, 2 OR MORE VIEWS CLINICAL INDICATION: great toe TECHNIQUE: Frontal, lateral and oblique views of the toes of the left foot. COMPARISON: No relevant prior studies available. FINDINGS: BONES/JOINTS: Unremarkable. No acute fracture. No dislocation. SOFT TISSUES: Unremarkable. No radiopaque foreign body. RAD/Toe(s) Min 2 Views IMPRESSION: Negative left toe x-rays. Electronically Signed: Ross Elam MD at 17:14 EDT ,
[2023-03-17] MEDS: Acetaminophen 500 MG Tablet 1000 MG PO (16:53)
[2023-03-17] MEDS: Smz/Tmp Ds Tablet 1 TABLET PO (16:54)
[2023-03-17] MEDS: Cephalexin 250 MG Capsule 500 MG PO (16:54)
== END 2023-03-17 17:33 | disposition home or self-care (01) ==
PROVIDERS: Emergency Provider Emergency Medicine; PCP Registered Nurse; Visit Provider Emergency Medicine
DX: L03.116 Cellulitis of left lower limb (principal); I10 Essential (primary) hypertension; Z79.82 Long term (current) use of aspirin; Z79.899 Other long term (current) drug therapy; Z86.16 Personal history of COVID-19
CPT/HCPCS: 73660; 99283

== ENCOUNTER → 2023-12-17 | Outpatient (CLI) | payer MEDICAID, SELFPAY ==
--- NOTE | 2023-12-17 13:27 | US_ITS ---
STUDY: THYROID ULTRASOUND REASON FOR EXAM: Female, 58 years old. Thyroid surveil ence TECHNIQUE: Ultrasound evaluation of the thyroid was performed with real-time and static guzman-scale imaging. COMPARISON: Comparison is made with prior study dated November 28, 2022. FINDINGS: RIGHT LOBE: The right lobe of the thyroid gland is slightly enlarged and measures 5.4 cm x 2.3 cm x 2.1 cm. There is a homogeneous echotexture. There is a 3 mm x 4 mm x 2 mm hypoechoic solid nodule lower pole. This is unchanged. LEFT LOBE: The left lobe of the thyroid gland is enlarged and measures 6.1 cm x 3.9 cm x 3.2 cm. There is a homogeneous echotexture. There is a 3.6 cm x 3.5 cm x 3.5 cm complex solid and cystic nodule in the lower pole. Biopsy recommended if not already done. ISTHMUS: The isthmus measures 4 mm. The regional lymph nodes are normal. US/Thyroid IMPRESSION: Thyromegaly. Dominant complex cystic nodule in the lower pole of the left lobe of the thyroid measuring 3.6 cm x 3.5 cm x 3.5 cm. Biopsy recommended if not already performed. Electronically Signed: Cezar Pickett MD at 14:08 EDT ,
== END | disposition home or self-care (01) ==
LOC: US 13:23
PROVIDERS: PCP Registered Nurse; Referring Provider Surgery; Visit Provider Surgery
DX: E04.2 Nontoxic multinodular goiter (principal)
CPT/HCPCS: 76536

== ENCOUNTER → 2023-12-22 | Outpatient (CLI) | payer MEDICAID, SELFPAY ==
[2023-12-22 11:36] LABS: Free T3 2.4 pg/mL (2.18-3.98); T4 Free Direct 0.87 ng/dL (0.76-1.46); Thyroid Stim Hormone (TSH) 1.44 uIU/mL (0.358-3.74)
== END | disposition home or self-care (01) ==
PROVIDERS: PCP Registered Nurse; Referring Provider Surgery; Visit Provider Surgery
DX: E04.1 Nontoxic single thyroid nodule (principal); E04.2 Nontoxic multinodular goiter
CPT/HCPCS: 36415; 84439; 84443; 84481

== ENCOUNTER 2024-03-22 21:25 | Emergency (ER) | payer MEDICAID, SELFPAY ==
[2024-03-22 21:25] VITALS: BP 127/91; PULSE 62; RESP 16; TEMP 36.7; O2SAT 98; BMI 40.6
--- NOTE | 2024-03-22 22:07 | EKG12_ITS ---
Test Reason : DYSRHYTHMIA Blood Pressure : / mmHG Vent. Rate : 062 BPM Atrial Rate : 062 BPM P-R Int : 140 ms QRS Dur : 082 ms QT Int : 416 ms P-R-T Axes : 074 007 042 degrees QTc Int : 422 ms Normal sinus rhythm with sinus arrhythmia Normal ECG Confirmed by LATRICE GUO, CHANDANA ([id number]), grants and contracts assistant KERON TOBIAS ([id number]) on 03/24/2024 9:36:57 AM Referred By: Confirmed By:MARIA DEL CARMEN POLLARD MD
--- NOTE | 2024-03-22 22:18 | EDS_ITS ---
HPI History of Present Illness Chief Complaint: General Illness Informant: patient and spouse/S.O. Narrative Narrative: 58-year-old female presenting to the emergency room with cough congestion not feeling well x 9 days. Patient states that last Sunday she mowed the lawn and afterwards developed sore throat. The next day she was having cough and rattling in her chest. She has felt generalized fatigue. She has had a near syncopal episode earlier in the week. Decreased appetite. No definite fevers. No rashes. 1 day of diarrhea. No vomiting. Patient states she really does not feel that she has improved much over the past week so she wanted to be gayatri luated. She has a history of supraventricular tachycardia and is status post ablation. [facility] Medical History PVC (premature ventricular contraction) Post-menopausal Wears glasses Anxiety Open wound Arthritis Back pain Migraine headache Non-smoker Shortness of breath on exertion Leg cramps History of pain when walking History of edema History of echocardiogram History of stress test Hypertension Cardiology follow-up encounter History of irregular heartbeat COVID-19 Complaint of melena Multinodular goiter History of left heart catheterization (LHC) (~03/29/21) Thyroid nodule Premature ventricular contraction Premature atrial contraction History of ventricular tachycardia History of PSVT (paroxysmal supraventricular tachycardia) Closed head injury Pneumonia involving left lung Home Medications ?Medication ?Instructions ?Recorded ?Last Taken ?Type Lactobacillus acidophilus 250 100 mmu cells PO DAILY supplement 03/23/21 Unknown History million cell capsule acetaminophen 325 mg tablet 325 mg PO Q4H PRN Pain 03/23/21 Unknown History aspirin 81 mg tablet,delayed 81 mg PO DAILY heart health 03/23/21 03/27/21 History release (Adult Low Dose Aspirin) cholecalciferol (vitamin D3) 50 50 mcg PO DAILY vitamin 03/23/21 03/28/21 History mcg (2,000 unit) capsule ibuprofen 200 mg tablet (Advil) 400 mg PO Q4H PRN Pain 03/23/21 Unknown History clonazepam 0.5 mg tablet 0.5 mg PO QHS 05/17/21 Unknown History amitriptyline 25 mg tablet 25 mg PO QHS 07/18/21 Unknown History sumatriptan succinate 50 mg tablet 50 mg PO PRN PRN MIGRAINES 07/18/21 Unknown History flecainide 100 mg tablet 100 mg PO Q12H 10/18/21 12/21/21 History apple cider vinegar 500 mg tablet 500 mg PO DAILY 12/19/21 Unknown History magnesium 500 mg tablet 15 mg PO DAILY 12/19/21 Unknown History omeprazole 40 mg capsule,delayed 40 mg PO DAILY #30 caps 12/21/21 Unknown Rx release metoprolol tartrate 25 mg tablet 12.5 mg PO BID 01/31/22 Unknown History naproxen 500 mg tablet (Naprosyn) 500 mg PO BID PRN pain #20 tabs 03/17/23 Unknown Rx doxycycline monohydrate 100 mg 100 mg PO BID #14 CAPSULES 03/22/24 Unknown Rx capsule Allergy/AdvReac Type Severity Reaction Status Date / Time latex Allergy Rash Verified 01/15/24 08:42 Family History Father Heart disease Mother Heart disease Surgical History History of cardiac catheterization Hx of prior ablation treatment S/P thyroid biopsy (~07/2021) S/P Social History Smoking Status: Never smoker alcohol intake: never substance use type: does not use caffeine: Yes what type of physical activity do you participate in: walking, aerobics and other details: stepper frequency: 5-6 times per week do you feel safe at home: Yes additional social history: - Landon ROS ROS ED ROS Narrative Generalized fatigue Constitutional Constitutional ED: Denies chills, fever(s) or weight loss Eyes Eyes: Denies change in vision or diplopia ENT ENT ED: Reports sore throat; Denies ear pain or rhinorrhea Cardiovascular Cardiovascular: Denies chest pain, orthopnea, palpitations or racing heartbeat Respiratory/Chest Respiratory/Chest: Reports cough and sputum; Denies dyspnea or orthopnea Gastrointestinal Gastrointestinal: Reports diarrhea; Denies abdominal pain, nausea or vomiting Genitourinary Genitourinary ED: Denies dysuria, hematuria or urinary frequency Musculoskeletal Musculoskeletal: Reports myalgias; Denies arthralgias Integumentary Denies abscess or rash Neurologic Neurologic: Denies headache(s) or weakness Psychiatric Psychiatric: Denies anxiety, depression, suicidal ideation or suicidal thoughts Endocrine Endocrinology: Denies polydipsia, polyphagia or polyuria Allergic/Immunologic Allergic/Immunologic ED: Denies mouth swelling, tongue swelling or urticaria EXAM Physical Exam Const Vital Signs: 03/22/24 21:25 03/22/24 21:39 03/22/24 23:00 Temperature 98.1 F 98.1 F Temperature Source Temporal Oral Pulse Rate 62 61 Respiratory Rate 16 16 Respiratory Effort Normal Respiratory Pattern Normal Blood Pressure 127/91 H 102/72 Blood Pressure Mean 103 82 Pulse Ox 98 99 Oxygen Delivery Method Room Air Room Air 03/22/24 23:35 Temperature 98 F Temperature Source Temporal Pulse Rate 62 Respiratory Rate 16 Respiratory Effort Respiratory Pattern Blood Pressure 104/73 Blood Pressure Mean 83 Pulse Ox 98 Oxygen Delivery Method Room Air Positive well nourished and well developed General Appearance ED: well developed HEENT Reports normocephalic, head/scalp atraumatic and moist mucous membranes Eyes PERRL and EOMs intact bilaterally Neck no lymphadenopathy, supple and no JVD Resp normal respiratory effort and clear to auscultation bilaterally Cardio regular rate, regular rhythm and no murmurs GI normal to inspection, nondistended, normoactive bowel sounds and non-tender Palpation: soft Back/Spine no CVA tenderness and normal ROM Extremity normal to inspection General Extremety ED: Negative for edema General Extremity: Negative for edema Neuro oriented x3 and CN's II-XII intact bilaterally Sensorium / Orientation: alert Motor Exam: strength 5/5 throughout Psych mental status grossly normal Mood & Affect: Negative for depressed or tearful Skin no rashes or lesions noted and no wounds MDM MDM MDM Narrative Medical decision making narrative: Differential diagnosis includes but not limited to pneumonia viral syndrome dehydration SVT electrolyte disturbance anemia bronchitis My independent interpretation of the chest x-ray is no acute process. EKG is in normal sinus rhythm. She has been in a sinus rhythm during her stay. CBC with a white count of 8.2 hemoglobin 12.8 platelet count 251. Normal sodium and potassium creatinine 0.94 glucose 101 liver enzymes normal troponin is negative. COVID influenza and RSV swab negative. Patient has been ill now for 9 days. She has symptoms more of a bronchitis which is most likely viral in nature however cannot rule out bacterial cause and as she has not had any improvement over the 9 days I think it is reasonable to give her a trial of doxycycline. I am hesitant to use any albuterol as of not hearing wheezing and she has a history of SVT. Patient will follow-up primary care in 1 week if not improved History & Record Review Discussion w/independent historian: Patient and Significant other Lab Data Attestation: I reviewed the patient's lab results. Labs: Laboratory Results - last 24 hr 03/22/24 22:18 WBC 8.2 RBC 4.74 Hgb 12.8 Hct 40.3 MCV 85.0 MCH 27.0 MCHC 31.8 L RDW Std Deviation 42.2 RDW Coeff of Gunner 13.6 Plt Count 251 MPV 9.3 Immature Gran % (Auto) 0.200 Neut % (Auto) 52.0 Lymph % (Auto) 37.2 Hall % (Auto) 6.6 Eos % (Auto) 3.4 Baso % (Auto) 0.6 Absolute Neuts (auto) 4.2 Absolute Lymphs (auto) 3.03 Nucleated RBC % 0 Sodium 143 Potassium 4.1 Chloride 109 H Carbon Dioxide 31.0 Anion Gap 3 L BUN 12 Creatinine 0.94 Estim Creat Clear Calc 67.27 Est GFR (MDRD) Af Amer 80 Est GFR (MDRD) Non-Af 66 BUN/Creatinine Ratio 12.8 Glucose 101 Calcium 8.9 Total Bilirubin 0.10 L Direct Bilirubin 0.08 AST 18 ALT 21 Alkaline Phosphatase 78 Troponin I High Sens < 3 L Total Protein 6.8 Albumin 2.9 L Globulin 3.9 Radiography Diagnostic Testing: Clinical Impression(s) from Imaging Studies Chest X-Ray 03/22/24 22:30 IMPRESSION: No radiographic evidence of acute cardiopulmonary disease. Electronically Signed: Kin Torres MD at 22:46 EDT Reading Location ID and State: [facility] / [place] Tel , Service support , EKG Initial EKG: Attestation: I personally reviewed and interpreted this EKG as follows: Comments: Normal sinus rhythm with a ventricular rate of 62 bpm. Discharge Plan Triage Chief Complaint: General Illness ED Provider: Rubio Overton Dx/Rx/DC Orders Clinical Impression: Bronchitis, Near syncope Prescriptions: New doxycycline monohydrate 100 mg capsule 100 mg PO BID Qty: 14 0RF No Action clonazepam 0.5 mg tablet 0.5 mg PO QHS amitriptyline 25 mg tablet 25 mg PO QHS sumatriptan succinate 50 mg tablet 50 mg PO PRN PRN (Reason: MIGRAINES) flecainide 100 mg tablet 100 mg PO Q12H magnesium 500 mg Tablet 15 mg PO DAILY apple cider vinegar 500 mg Tablet 500 mg PO DAILY omeprazole 40 mg capsule,delayed release(DR/EC) 40 mg PO DAILY Qty: 30 0RF naproxen [Naprosyn] 500 mg tablet 500 mg PO BID PRN (Reason: pain) Qty: 20 0RF acetaminophen 325 mg tablet 325 mg PO Q4H PRN (Reason: Pain) aspirin [Adult Low Dose Aspirin] 81 mg tablet,delayed release (DR/EC) 81 mg PO DAILY cholecalciferol (vitamin D3) 50 mcg (2,000 unit) capsule 50 mcg PO DAILY ibuprofen [Advil] 200 mg tablet 400 mg PO Q4H PRN (Reason: Pain) Lactobacillus acidophilus 1.5 mg (250 million cell) capsule 100 mmu cells PO DAILY metoprolol tartrate 25 mg tablet 12.5 mg PO BID Rx Instructions: . Primary Care Provider: Yris Arreaga NP Referrals: Yris Arreaga NP, LPN PER DIEM-C [Primary Care Provider] - 1 Week if not improving Print Language: Frisian Disposition Disposition: Home, Self Care
[2024-03-22] MEDS: 0.9% Normal Saline (1000mL) 1,000 ML 1000 ML IV (22:23)
--- NOTE | 2024-03-22 22:30 | RAD_ITS ---
INDICATION: cough EXAMINATION/TECHNIQUE: X-RAY - portable upright AP chest x-ray COMPARISON: 06/10/2021 FINDINGS: LINES/DEVICES: None. LUNGS: No consolidation, edema or effusion. No pneumothorax. MEDIASTINUM AND CARDIOVASCULAR STRUCTURES: Cardiac silhouette not enlarged. Central airways and mediastinal contour are unremarkable. BONES AND SOFT TISSUES: Unremarkable. RAD/Chest 1 View (Portable) IMPRESSION: No radiographic evidence of acute cardiopulmonary disease. Electronically Signed: Kin Torres MD at 22:46 EDT ,
[2024-03-22 22:31] LABS: Absolute Lymphocyte Count 3.03 X10^3/uL (0.83-4.51); Absolute Neutrophil Count 4.2 X10^3/uL (2.0-7.7); Basophil# 0.05 X10^3/uL; Basophil% 0.6 % (0-1); Eosinophil# 0.28 X10^3/uL; Eosinophils% 3.4 % (0-5); Hematocrit 40.3 % (37-47); Hemoglobin 12.8 g/dL (12.0-15.0); Lymphocyte # 3.03 X10^3/ul (0.83-4.51); Lymphocyte % 37.2 % (19-41); Mean Corp Hgb Conc 31.8 g/dL (32-36); Mean Platelet Vol. 9.3 fl (6.2-12.0); Monocyte# 0.54 X10^3/uL; Monocyte% 6.6 % (0-10); NRBC Flagged by Analyzer 0 % (0-5); Neutrophil # 4.23 X10^3/uL (2.7-7.7); Platelet Count 251 K/mm3 (150-450); RBC Distribution Width CV 13.6 % (11.6-14.6); RBC Distribution Width SD 42.2 fl (35.1-43.9); Red Blood Count 4.74 M/mm3 (4.2-5.4); White Blood Count 8.2 K/mm3 (4.4-11.0)
[2024-03-22 22:51] LABS: AST(SGOT) 18 U/L (15-37); Alanine Aminotransfer ALT/SGPT 21 U/L (13-56); Albumin, Serum 2.9 g/dL (3.2-5.0); Alkaline Phosphatase 78 U/L (45-117); Anion Gap 3 (5-15); BUN 12 mg/dL (7-18); BUN/Creat Ratio 12.8 RATIO (10-20); Bilirubin, Direct 0.08 mg/dL (0.00-0.30); Calcium,Total 8.9 mg/dL (8.5-10.1); Chloride 109 mmol/L (98-107); Creatinine, Serum 0.94 mg/dL (0.55-1.02); EST Glomerular Filtration Rate 66 mL/min (>60); Est Glom Filt Rate - Afr Amer 80 mL/min (>60); Estimated Creatinine Clearance 67.27 ml/min; Globulin 3.9 g/dL (2.2-4.2); Glucose 101 mg/dL (74-106); Potassium 4.1 mmol/L (3.5-5.1); Protein, Total 6.8 g/dL (6.4-8.2); Sodium Level 143 mmol/L (136-145); Troponin-I HS < 3 pg/mL (3.0-54.0)
[2024-03-22 23:00] VITALS: BP 102/72; PULSE 61; RESP 16; TEMP 36.7; O2SAT 99
[2024-03-22 23:35] VITALS: BP 104/73; PULSE 62; RESP 16; TEMP 36.6; O2SAT 98
[2024-03-22 23:50] VITALS: BP 102/59; PULSE 61; RESP 16; TEMP 36.7; O2SAT 99
== END 2024-03-22 23:54 | disposition home or self-care (01) ==
PROVIDERS: Emergency Provider Emergency Medicine; PCP Registered Nurse; Visit Provider Emergency Medicine
DX: J40 Bronchitis, not specified as acute or chronic (principal); R55 Syncope and collapse; I10 Essential (primary) hypertension; R19.7 Diarrhea, unspecified
CPT/HCPCS: 71045; 80048; 80076; 84484; 85025; 87631; 93005; 96360; 99285; J7030; A4216

== ENCOUNTER → 2024-04-18 | Outpatient (CLI) | payer MEDICAID, SELFPAY ==
--- NOTE | 2024-04-18 12:40 | BD_ITS ---
STUDY: DUAL ENERGY X-RAY ABSORPTIOMETRY / DXA REASON FOR EXAM: Female, 58 years old. 733.00OsteoporosisBONE DENSITY REASON FOR EXAM TECHNIQUE: Bone Mineral Density (BMD) measurements of lumbar spine and bilateral hips were obtained. COMPARISON: Comparison is made with prior study dated May 05, 2020. FINDINGS: Lumbar Spine (L1-L4): g/cm2 (1.077) / T-score (0.9) / Z-score (2.0) Findings are suggestive of normal bone density with a low fracture risk. Left Femur Total: g/cm2 (1.116) / T-score (1.4) / Z-score (2.2) Left Femoral Neck: g/cm2 (0.876) / T-score (0.2) / Z-score (1.4) Right Femur Total: g/cm2 (1.086) / T-score (1.2) / Z-score (1.9) Right Femoral Neck: g/cm2 (0.903) / T-score (0.5) / Z-score (1.6) The T-Scores on the most recent prior examination were: Lumbar Spine (L1-L4): There has been improvement of bone density since the previous examination. Left Femur Total: which represents a worsening of 5.7%. Right Femur Total: which represents a worsening of 6%. BD/Dexa Bone Density Study IMPRESSION: The patient is considered normal as outlined below according to World [employer] Organization (WHO) criteria with a low fracture risk. There has been worsening of bone density since the previous examination. Reference Information: The T-score is the number of standard deviations above or below the standard which is normal for young adults at their peak bone mineral density. The World Health Organization (WHO) interprets the T-scores as follows: Above -1 Normal bone density Between -1 and -2.5 Osteopenia Equal to / or below -2.5 Osteoporosis As a practical clinical guideline, osteopenia may be graded as follows: Mild -1 through -1.5 Moderate -1.6 through -2.0 Severe -2.1 through -2.4 The Z-score is the number of standard deviations above or below age-matched controls. A Z-score of less than -1.5 would be considered abnormal. References: 1. NIH Osteoporosis and Related Bone Diseases www osteo.org 2. International Society for Clinical Densitometry www iscd.org 3. National Osteoporosis Foundation www nof.org Electronically Signed: Cezar Pickett MD at 12:23 EDT ,
--- NOTE | 2024-04-18 12:40 | BI_ITS ---
MAMMOGRAPHY - BILATERAL SCREENING REASON FOR EXAM: Female, 58 years old. Routine annual screening examination. PERTINENT HISTORY: Non-contributory. TECHNIQUE: Digital bilateral breast jose miguel (3D mammographic acquisition) in the CC and MLO projections. 2-D mediolateral oblique (MLO) and craniocaudad (CC) views of both breasts were obtained. CAD: Full Field Digital Mammography with Computer Added Detection was performed. COMPARISON: Comparison is made with prior study dated May 19, 2021 and May 05, 2020. FINDINGS: Breast Composition: There are scattered areas of fibroglandular density. There are no dominant masses or suspicious calcifications. Stable small benign-appearing bilateral axillary lymph nodes. No other significant abnormalities are identified. There has been no significant change since the prior study. BI/SCRN MAMM (CAD)W/JOSE MIGUEL BILAT IMPRESSION: Stable bilateral screening mammogram. Yearly follow-up mammogram recommended. (A) ASSESSMENT CATEGORY: BIRADS Category 2: Benign. A letter regarding these results will be sent to the patient by the facility within 30 days. Approximately 10% of breast cancers are not detected by mammography. A normal mammogram should not delay biopsy of a clinically suspicious abnormality. [id number] Electronically Signed: Cezar Pickett MD at 14:17 EDT ,
[2024-04-18 14:46] LABS: Hematocrit 40.8 % (37-47); Hemoglobin 12.8 g/dL (12.0-15.0); Mean Corp Hgb Conc 31.4 g/dL (32-36); Mean Corpuscular Volume 86.1 fL (81-99); Mean Platelet Vol. 9.6 fl (6.2-12.0); Platelet Count 276 K/mm3 (150-450); RBC Distribution Width CV 13.8 % (11.6-14.6); RBC Distribution Width SD 43.3 fl (35.1-43.9); Red Blood Count 4.74 M/mm3 (4.2-5.4); White Blood Count 7.3 K/mm3 (4.4-11.0)
[2024-04-18 15:21] LABS: Vitamin D,25 Hydroxy 41.2 ng/mL
[2024-04-18 15:30] LABS: ALB/GLOB Ratio 0.8 RATIO (0.9-2.4); AST(SGOT) 26 U/L (15-37); Alanine Aminotransfer ALT/SGPT 22 U/L (13-56); Albumin, Serum 3.4 g/dL (3.2-5.0); Alkaline Phosphatase 82 U/L (45-117); Anion Gap 4 (5-15); BUN 10 mg/dL (7-18); BUN/Creat Ratio 12.2 RATIO (10-20); Calcium,Total 9.6 mg/dL (8.5-10.1); Chloride 103 mmol/L (98-107); Cholesterol 187 mg/dL (200); Creatinine, Serum 0.82 mg/dL (0.55-1.02); EST Glomerular Filtration Rate 77 mL/min (>60); Est Glom Filt Rate - Afr Amer 93 mL/min (>60); Globulin 4.1 g/dL (2.2-4.2); Glucose 84 mg/dL (74-106); High Density Lipoprotein 61 mg/dL; Protein, Total 7.5 g/dL (6.4-8.2); Sodium Level 138 mmol/L (136-145); Thyroid Stim Hormone (TSH) 0.927 uIU/mL (0.358-3.740); Triglycerides 81 mg/dL; Very Low Density Lipoprotein 16 mg/dL (5-40)
== END | disposition home or self-care (01) ==
PROVIDERS: PCP Registered Nurse; Referring Provider Registered Nurse; Visit Provider Registered Nurse
DX: M81.0 Age-related osteoporosis without current pathological fracture (principal); Z12.31 Encounter for screening mammogram for malignant neoplasm of breast; I73.9 Peripheral vascular disease, unspecified; E04.2 Nontoxic multinodular goiter
CPT/HCPCS: 36415; 77063; 77067; 77080; 80053; 80061; 82306; 84439; 84443; 85027

== ENCOUNTER 2024-12-01 11:19 | Emergency (ER) | payer MEDICAID, SELFPAY ==
[2024-12-01 11:20] VITALS: BP 110/82; PULSE 70; RESP 14; TEMP 36.6; O2SAT 95
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
--- NOTE | 2024-12-01 12:20 | RAD_ITS ---
PROCEDURE: TIBIA FIBULA 2 VIEWS 12/01/2024 REASON FOR EXAM: INJURY TECHNIQUE: 3 views of the right tibia and fibula COMPARISON: None FINDINGS: Bones: No acute fracture. No suspicious bone lesion. Joints: Normal alignment. Mild degenerative changes. Soft tissues: Soft tissues are unremarkable. RAD/Tibia & Fibula 2 Views IMPRESSION: NEGATIVE TIBIA AND FIBULA Reading Location: [id number]
--- NOTE | 2024-12-01 12:20 | RAD_ITS ---
PROCEDURE: FEMUR MIN 2 VIEWS 12/01/2024 REASON FOR EXAM: INJURY TECHNIQUE: 4 view(s) of the right femur. COMPARISON: None. FINDINGS: Bones: No acute fracture or aggressive osseous lesions. Joints: Normal alignment. Mild degenerative changes. Soft tissues: Soft tissues are unremarkable. RAD/Femur Min 2 Views IMPRESSION: NEGATIVE FEMUR Reading Location: [id number]
--- NOTE | 2024-12-01 12:20 | RAD_ITS ---
EXAM: Right foot. CLINICAL HISTORY: Pain following injury. COMPARISON: None TECHNIQUE: Three views of the right foot were obtained. FINDINGS: There is evidence of degenerative changes of the talonavicular as well as the calcaneal navicular joint with joint space narrowing and degenerative spur formation. No definite fracture is seen. Plantar spur. Soft tissue swelling. RAD/Foot min 3 Views IMPRESSION: Degenerative changes of the talonavicular and calcaneal navicular joints with n ew bone formation and joint space narrowing. Soft tissue swelling. Plantar spur. Reading Location: [place] [id number]
[2024-12-01 13:20] VITALS: BP 107/73
[2024-12-01 13:22] VITALS: BP 107/73; PULSE 70; RESP 15; TEMP 36.6; O2SAT 95
[2024-12-01 13:23] VITALS: BMI 42.5
== END 2024-12-01 13:25 | disposition home or self-care (01) ==
PROVIDERS: Emergency Provider Emergency Medicine; PCP Registered Nurse; Visit Provider Emergency Medicine
DX: M79.604 Pain in right leg (principal); V18.0XXA Pedal cycle driver injured in noncollision transport accident in nontraffic accident, initial encounter; Z79.82 Long term (current) use of aspirin; Z79.899 Other long term (current) drug therapy; F41.9 Anxiety disorder, unspecified; S86.911A Strain of unspecified muscle(s) and tendon(s) at lower leg level, right leg, initial encounter
CPT/HCPCS: 73552; 73590; 73630; 99282